=== PATIENT | male | born 1950 | race Caucasian/White ===

== ENCOUNTER 2016-10-27 07:55 | Inpatient (IN) | payer MEDICARE, OTHER ==
[~2016-10-27] VITALS: Ht 185.4 cm; Wt 106.8 kg
[2016-10-27] VITALS (8 sets, daily range): BP systolic 113; BP diastolic 59; PULSE 64–94; RESP 16; TEMP 100; O2SAT 96–100
[2016-10-27] MEDS ORDERED: MIDAZOLAM HCL 5 MG/ML VIAL (1 ML) ONE ×2 (08:00→08:23)
[2016-10-27] MEDS ORDERED: DIPHTH/TETANUS/ACEL PERTUSSIS (BOOSTER) 0.5 ML VIAL/PFS IM ONE (08:01)
[2016-10-27] MEDS ORDERED: ceFAZolin 2 GM PREMIX 50 ML ONE (08:01)
[2016-10-27 08:23] LABS: AUTOMATED NEUTROPHIL # 13.5 TH/MM3 (1.8-7.7); BASOPHIL % 0.3 % (0.0-2.0); EOSINOPHIL # 0.1 TH/MM3 (0-0.4); EOSINOPHIL % 0.4 % (0.0-4.0); HEMATOCRIT 29.6 % (39.0-51.0); HEMO FLAGS DIFF FINAL; LYMPH % 12.3 % (9.0-44.0); MEAN CELL VOLUME 95.5 FL (80.0-100.0); MEAN CORPUSCULAR HEMOGLOBIN 32.2 PG (27.0-34.0); MEAN CORPUSCULAR HGB CONC 33.7 % (32.0-36.0); MONO % 5.8 % (0.0-8.0); NEUT % 81.2 % (16.0-70.0); PLATELET COUNT 212 TH/MM3 (150-450); RED CELL DISTRIBUTION WIDTH 14.4 % (11.6-17.2); WHITE BLOOD COUNT 16.6 TH/MM3 (4.0-11.0)
[2016-10-27 08:33] LABS: APTT (PATIENT) 27.6 SEC (24.3-30.1); INTERNATIONAL NORMALIZED RATIO 1.2 RATIO
[2016-10-27] MEDS ORDERED: ceFAZolin 2 GM PREMIX 50 ML IV ONE (08:45)
[2016-10-27] MEDS ORDERED: IOHEXOL 350 MG/ML 10 ML VIAL (for RAD DIAG) IV ONE (08:50)
[2016-10-27] MEDS ORDERED: KETAMINE HCL 500 MG/5 ML VIAL ONE (08:55)
[2016-10-27] MEDS ORDERED: fentaNYL CITRATE 250 MCG/5 ML AMP ONE (08:56)
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
[2016-10-27] MEDS ORDERED: GENTAMICIN SULFATE 80 MG/2 ML VIAL IV ONE ×2 (09:19→12:16)
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
[2016-10-27] MEDS ORDERED: CIAL2.5T PO (09:26)
[2016-10-27] MEDS: SODIUM CHLOR 0.9% 1000 ML INJ 1,000 ML IV SCH ×2 (09:27→23:21)
[2016-10-27] MEDS ORDERED: CHLORHEXIDINE GLUCONATE 2 % 1 PACK (2 CLOTHS) TOP PRN (09:30)
[2016-10-27] MEDS ORDERED: ONDANSETRON HCL 4 MG/2 ML VIAL IV PRN (09:30)
[2016-10-27] MEDS ORDERED: SODIUM CHLORIDE 0.9% FLUSH 5 ML FLUSH IVF PRN (09:30)
[2016-10-27] MEDS ORDERED: MISCELLANEOUS NURSING INFORMATION XX SCH (09:30)
[2016-10-27] MEDS ORDERED: ACETAMINOPHEN 325 MG TAB PO PRN (09:30)
[2016-10-27] MEDS ORDERED: TRANEXAMIC ACID INJ 1,300 MG in SODIUM CHLORIDE 0.9% INJ 100 ML IV SCH (09:30)
[2016-10-27] MEDS: PANTOPRAZOLE SODIUM 40 MG VIAL IVP SCH (09:30)
[2016-10-27] MEDS ORDERED: ENALAPRILAT 1.25 MG/ML VIAL IV PRN (09:30)
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
[2016-10-27] MEDS ORDERED: GENTAMICIN SULFATE 80 MG/2 ML VIAL XX ONE (09:41)
[2016-10-27 09:51] LABS: BLOOD GAS BASE EXCESS -8.5 mmol/L (-2-2); BLOOD GAS CARBOXYHEMOGLOBIN 1.2 % (0-4); BLOOD GAS HCO3 18 mmol/L (22-26); BLOOD GAS METHEMOGLOBIN 1.2 % (0-2); BLOOD GAS O2 HGB SATURATION 98 % (90-100); BLOOD GAS OXYGEN CONTENT 12.5 Vol % (12.0-20.0); BLOOD GAS PCO2 43 mmHg (38-42); BLOOD GAS PO2 407 mmHg (61-120); BLOOD GAS TOTAL HGB 8.4 G/DL (12.0-16.0); CRITICAL VALUE YES; OXYGEN DEVICE VENTILATOR; TEMP CORR TO 98.6; VENT SETTINGS IN OR
[2016-10-27 09:52] LABS: DRAW SITE IN OR; STAT YES
[2016-10-27 10:00] LABS: AUTOMATED NEUTROPHIL # 8.8 TH/MM3 (1.8-7.7); BASOPHIL % 0.2 % (0.0-2.0); EOSINOPHIL % 0.4 % (0.0-4.0); HEMATOCRIT 22.6 % (39.0-51.0); HEMO FLAGS DIFF FINAL; LYMPH % 7.8 % (9.0-44.0); LYMPHOCYTE # 0.8 TH/MM3 (1.0-4.8); MEAN CELL VOLUME 92.3 FL (80.0-100.0); MEAN CORPUSCULAR HEMOGLOBIN 31.8 PG (27.0-34.0); MEAN CORPUSCULAR HGB CONC 34.4 % (32.0-36.0); MONO % 7.7 % (0.0-8.0); NEUT % 83.9 % (16.0-70.0); PLATELET COUNT 107 TH/MM3 (150-450); RED BLOOD COUNT 2.45 MIL/MM3 (4.50-5.90); RED CELL DISTRIBUTION WIDTH 14.7 % (11.6-17.2); WHITE BLOOD COUNT 10.5 TH/MM3 (4.0-11.0)
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
[2016-10-27 10:16] LABS: APTT (PATIENT) 42.7 SEC (24.3-30.1); INTERNATIONAL NORMALIZED RATIO 1.4 RATIO; PROTHROMBIN TIME - PATIENT 15.5 SEC (9.8-11.6)
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
[2016-10-27 10:24] LABS: POTASSIUM 4.1 MEQ/L (3.5-5.1)
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
[2016-10-27 10:33] LABS: BLOOD GAS BASE EXCESS -4.1 mmol/L (-2-2); BLOOD GAS CARBOXYHEMOGLOBIN 1.6 % (0-4); BLOOD GAS HCO3 21 mmol/L (22-26); BLOOD GAS METHEMOGLOBIN 1.3 % (0-2); BLOOD GAS O2 HGB SATURATION 97 % (90-100); BLOOD GAS OXYGEN CONTENT 11.8 Vol % (12.0-20.0); BLOOD GAS PCO2 38 mmHg (38-42); BLOOD GAS PO2 250 mmHg (61-120); BLOOD GAS TOTAL HGB 8.2 G/DL (12.0-16.0); CRITICAL VALUE NO; DRAW SITE ART LINE; OXYGEN DEVICE VENTILATOR; STAT YES; TEMP CORR TO 98.6
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
[2016-10-27 10:50] LABS: CALCIUM-PROTEIN CORRECTED 7.9 MG/DL (8.5-10.1)
[2016-10-27 11:28] LABS: BLOOD GAS BASE EXCESS -3.4 mmol/L (-2-2); BLOOD GAS CARBOXYHEMOGLOBIN 1.8 % (0-4); BLOOD GAS HCO3 21 mmol/L (22-26); BLOOD GAS METHEMOGLOBIN 1.4 % (0-2); BLOOD GAS O2 HGB SATURATION 97 % (90-100); BLOOD GAS OXYGEN CONTENT 11.1 Vol % (12.0-20.0); BLOOD GAS PCO2 37 mmHg (38-42); BLOOD GAS PO2 236 mmHg (61-120); BLOOD GAS TOTAL HGB 7.7 G/DL (12.0-16.0); TEMP CORR TO 98.6
[2016-10-27 11:29] LABS: CRITICAL VALUE NO; DRAW SITE IN OR; OXYGEN DEVICE VENTILATOR; STAT YES; VENT SETTINGS IN OR
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
[2016-10-27 11:35] LABS: AUTOMATED NEUTROPHIL # 6.9 TH/MM3 (1.8-7.7); BASOPHIL % 0.1 % (0.0-2.0); EOSINOPHIL % 0.1 % (0.0-4.0); HEMATOCRIT 21.2 % (39.0-51.0); LYMPH % 8.7 % (9.0-44.0); LYMPHOCYTE # 0.7 TH/MM3 (1.0-4.8); MEAN CELL VOLUME 87.3 FL (80.0-100.0); MEAN CORPUSCULAR HEMOGLOBIN 30.4 PG (27.0-34.0); MEAN CORPUSCULAR HGB CONC 34.8 % (32.0-36.0); MONO % 7.5 % (0.0-8.0); NEUT % 83.6 % (16.0-70.0); PLATELET COUNT 95 TH/MM3 (150-450); RED BLOOD COUNT 2.43 MIL/MM3 (4.50-5.90); RED CELL DISTRIBUTION WIDTH 15.2 % (11.6-17.2); WHITE BLOOD COUNT 8.3 TH/MM3 (4.0-11.0)
[2016-10-27 11:38] LABS: HEMO FLAGS AUTO DIFF
[2016-10-27 11:43] LABS: APTT (PATIENT) 41.1 SEC (24.3-30.1); INTERNATIONAL NORMALIZED RATIO 1.3 RATIO; PROTHROMBIN TIME - PATIENT 14.8 SEC (9.8-11.6)
[2016-10-27] MEDS ORDERED: MORPHINE SULFATE 4 MG/ML INJ IV PUSH PRN (11:45)
[2016-10-27] MEDS ORDERED: BACITRACIN TOP OINT 15 GM TUBE ONE (11:52)
--- NOTE | 2016-10-27 11:53 | HHI.PR ---
cc: Sedrick Dutton MD Immediate Post Op Note Procedure Date: Oct 27, 2016 Pre Op Diagnosis: Open left tibia-fibula fracture, open left calcaneus fracture, open right calcaneus fracture, right subtalar joint dislocation, right talonavicular joint dislocation Post Op Diagnosis: Surgeon: Sedrick Dutton Shook Splicer(s): Bereket Luciano PA-C The surgical procedure was assisted by my physician night assistant. My P.A. presence was necessary throughout this case for the manipulation and positioning of the surgical extremity. My P.A. was assisting me throughout the duration of this procedure. The skill set of a physician night assistant was medically necessary to complete this procedure. During the surgical case the hand frame surgical elastic knitter was working at the back table and the physician night assistant was directly assisting me. Procedure: Irrigation and debridement of open left tibia fracture, left fibula fracture, left calcaneus fracture, right calcaneus fracture. Closed reduction and excellent fixation of left distal tibia and fibula fractures Open reduction of right talonavicular joint Open reduction of right subtalar joint Pinning of right subtalar ankle joint Anesthesia: General Drains: None Patient Condition: Critical Sedrick Dutton MD Oct 27, 2016 11:53
[2016-10-27] MEDS ORDERED: TRANEXAMIC ACID INJ 1,000 MG/10 ML AMP ONE (11:56)
[2016-10-27] MEDS ORDERED: SODIUM CHLOR 0.9% 250 ML INJ 250 ML IV ONE ×2 (12:00→18:00)
[2016-10-27] MEDS ORDERED: PROPOFOL 200 MG/20 ML AMP IV ONE (12:00)
[2016-10-27] MEDS ORDERED: PHENYLEPHRINE HCL 10 MG/ML VIAL IV ONE (12:00)
[2016-10-27] MEDS ORDERED: CALCIUM CHLORIDE 10% SOLN 1 GRAM/10 ML SYR IV ONE (12:00)
[2016-10-27] MEDS ORDERED: LACTATED RINGER'S 1000 ML INJ 1,000 ML IV ONE (12:00)
[2016-10-27] MEDS ORDERED: NORMOSOL R IV ONE (12:00)
[2016-10-27] MEDS ORDERED: SODIUM BICARBONATE 8.4% SOLN 50 MEQ/50 ML VIAL IV ONE (12:00)
[2016-10-27] MEDS ORDERED: PHENYLEPH/NS 1000 MCG/10 ML SYR IV ONE (12:00)
[2016-10-27 12:10] LABS: BANDS 38 % (0-6); NEUTROPHIL # MANUAL DIFF 7.1 TH/MM3 (1.8-7.7); POLYS (SEG NEUTROPHILS) 48 % (16-70); WBC DIFF SAMPLE 100
[2016-10-27 12:11] LABS: ACANTHOCYTES OCC (NORMAL); PLATELET ESTIMATE SMEAR LOW (NORMAL)
[2016-10-27 12:12] LABS: PLATELET MORPHOLOGY NORMAL (NORMAL); SCAN/DIFF FINAL DIFF MANUAL
[2016-10-27 12:14] LABS: BICARBONATE 23.8 MEQ/L (21.0-32.0)
[2016-10-27 12:24] LABS: BLOOD GAS BASE EXCESS -2.7 mmol/L (-2-2); BLOOD GAS CARBOXYHEMOGLOBIN 1.8 % (0-4); BLOOD GAS HCO3 22 mmol/L (22-26); BLOOD GAS METHEMOGLOBIN 0.9 % (0-2); BLOOD GAS O2 HGB SATURATION 97 % (90-100); BLOOD GAS OXYGEN CONTENT 13.5 Vol % (12.0-20.0); BLOOD GAS PCO2 37 mmHg (38-42); BLOOD GAS PO2 271 mmHg (61-120); BLOOD GAS TOTAL HGB 9.4 G/DL (12.0-16.0); TEMP CORR TO 98.6
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
[2016-10-27 12:25] LABS: CRITICAL VALUE NO; DRAW SITE IN OR; FIO2 60 %; OXYGEN DEVICE VENTILATOR; STAT YES; VENT SETTINGS IN OR
--- NOTE | 2016-10-27 12:41 | RADRPT ---
EXAM DATE/TIME: 10/27/2016 11:38 [facility] COMPARISON: TIBIA/FIBULA LEFT (1 VW), October 27, 2016, 7:51. INDICATIONS: Instrument count. MEDICAL HISTORY: Unobtainable. SURGICAL HISTORY: Unobtainable. ENCOUNTER: Subsequent ACUITY: 1 day PAIN SCORE: Non-responsive. LOCATION: Left tibia. FINDINGS: There is a severely comminuted fracture of the distal tibia and fibula with involvement of the tibial plafond. Intramedullary pin is seen in the fibula. There is an external fixer in place. There is no unexpect ed foreign bodies. CONCLUSION: I see no unexpected radiopaque foreign bodies. Gennaro Mueller MD FACR on October 27, 2016 at 12:33 Board Certified Radiologist. This report was verified electronically.
[2016-10-27 12:48] LABS: APTT (PATIENT) 32.7 SEC (24.3-30.1); INTERNATIONAL NORMALIZED RATIO 1.1 RATIO; PROTHROMBIN TIME - PATIENT 12.6 SEC (9.8-11.6)
[2016-10-27 13:04] LABS: BICARBONATE 23.4 MEQ/L (21.0-32.0)
[2016-10-27] MEDS ORDERED: POTASSIUM CL 40 MEQ/30 ML LIQ UDC PO/TUBE PRN ×2 (13:30)
[2016-10-27] MEDS ORDERED: POTASSIUM PHOSPHATE MONOBASIC 500 MG TAB PO/TUBE PRN (13:30)
[2016-10-27] MEDS ORDERED: POTASSIUM PHOSPHATE MONOBASIC 500 MG TAB PO PRN (13:30)
[2016-10-27] MEDS ORDERED: MAGNESIUM OXIDE 400 MG TAB PO PRN (13:30)
[2016-10-27] MEDS ORDERED: POTASSIUM CHLOR 40 MEQ PREMIX 100 ML IV PRN ×2 (13:30)
[2016-10-27] MEDS ORDERED: MAGNESIUM SULFATE INJ 4 GM in SODIUM CHLORIDE 0.9% INJ 92 ML IV PRN (13:30)
[2016-10-27] MEDS ORDERED: RESP: ALBUTEROL 2.5 MG/IPRATROPIUM 0.5 MG NEB (PRN) INH (13:30)
[2016-10-27] MEDS ORDERED: MAGNESIUM SULFATE INJ 2 GM in SODIUM CHLORIDE 0.9% INJ 96 ML IV PRN (13:30)
[2016-10-27] MEDS ORDERED: SODIUM PHOSPHATE INJ 30 MMOL in SODIUM CHLOR 0.9% 250 ML INJ 240 ML IV PRN (13:30)
[2016-10-27] MEDS ORDERED: POTASSIUM PHOSPHATE INJ 30 MMOL in SODIUM CHLOR 0.9% 250 ML INJ 250 ML IV PRN (13:30)
[2016-10-27] MEDS ORDERED: POTASSIUM CHLOR 20 MEQ PREMIX 100 ML IV PRN ×2 (13:30)
[2016-10-27] MEDS ORDERED: DEXTROSE 50% IN WATER 50 ML VIAL(D50) IV PUSH PRN (13:30)
[2016-10-27 13:33] LABS: HEMATOCRIT 21.7 % (39.0-51.0); MEAN CELL VOLUME 86.8 FL (80.0-100.0); MEAN CORPUSCULAR HEMOGLOBIN 30.2 PG (27.0-34.0); MEAN CORPUSCULAR HGB CONC 34.7 % (32.0-36.0); PLATELET COUNT 94 TH/MM3 (150-450); REVIEW FLAG FINAL; WHITE BLOOD COUNT 6.2 TH/MM3 (4.0-11.0)
--- NOTE | 2016-10-27 13:47 | RADRPT ---
EXAM DATE/TIME: 10/27/2016 11:38 [facility] COMPARISON: No previous studies available for comparison. INDICATIONS: Instrument count. MEDICAL HISTORY: Unobtainable. SURGICAL HISTORY: Unobtainable. ENCOUNTER: Subsequent ACUITY: 1 day PAIN SCORE: Non-responsive. LOCATION: Left forearm, humerus. FINDINGS: No radiopaque foreign bodies are evident. There is no radiopaque retained surgical instruments. CONCLUSION: There is no radiopaque retained surgical instruments. Gennaro Mueller MD FACR on October 27, 2016 at 13:38 Board Certified Radiologist. This report was verified electronically.
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
--- NOTE | 2016-10-27 14:25 | RADRPT ---
EXAM DATE/TIME: 10/27/2016 11:13 [facility] COMPARISON: No previous studies available for comparison. INDICATIONS : External fixator left ankle. MEDICAL HISTORY : None. SURGICAL HISTORY : None. ENCOUNTER: Subsequent ACUITY: 1 day PAIN SCORE: Non-responsive. LOCATION: Left ankle. FINDINGS: Two view exam was performed of the left ankle. There is severely comminuted fractures involving the d istal tibia. There is a comminuted fracture involving the distal fibula. There is good alignment at t he mortise joint. CONCLUSION: Severely comminuted fractures predominantly involving the distal tibia Austin Candelario MD on October 27, 2016 at 14:23 Board Certified Radiologist. This report was verified electronically.
--- NOTE | 2016-10-27 14:26 | RADRPT ---
EXAM DATE/TIME: 10/27/2016 11:13 [facility] COMPARISON: No previous studies available for comparison. INDICATIONS : Right heel/talus reduction, fixation. MEDICAL HISTORY : None. SURGICAL HISTORY : None. ENCOUNTER: Subsequent ACUITY: 1 day PAIN SCORE: Non-responsive. LOCATION: Right foot. FINDINGS: Two view examination of the right heel demonstrates an internal fixation pin that crossing the calcan eus, talus and distal tibia.. The bony structures appear to be in good alignment. CONCLUSION: Status post pinning as above. Austin Candelario MD on October 27, 2016 at 14:24 Board Certified Radiologist. This report was verified electronically.
[2016-10-27 15:01] LABS: BLOOD GAS BASE EXCESS -0.1 mmol/L (-2-2); BLOOD GAS CARBOXYHEMOGLOBIN 1.8 % (0-4); BLOOD GAS HCO3 24 mmol/L (22-26); BLOOD GAS METHEMOGLOBIN 0.9 % (0-2); BLOOD GAS O2 HGB SATURATION 97 % (90-100); BLOOD GAS OXYGEN CONTENT 12.1 Vol % (12.0-20.0); BLOOD GAS PCO2 42 mmHg (38-42); BLOOD GAS PO2 178 mmHg (61-120); BLOOD GAS TOTAL HGB 8.6 G/DL (12.0-16.0); CRITICAL VALUE NO; OXYGEN DEVICE VENTILATOR; TEMP CORR TO 98.6
[2016-10-27 15:02] LABS: DRAW SITE ART LINE; FIO2 40 %; STAT NO; VENT SETTINGS AC/16/550/PEEP5
[2016-10-27 16:11] LABS: HEMATOCRIT 23.5 % (39.0-51.0); MEAN CORPUSCULAR HEMOGLOBIN 30.7 PG (27.0-34.0); MEAN CORPUSCULAR HGB CONC 35.7 % (32.0-36.0); PLATELET COUNT 105 TH/MM3 (150-450); RED BLOOD COUNT 2.73 MIL/MM3 (4.50-5.90); RED CELL DISTRIBUTION WIDTH 14.7 % (11.6-17.2); REVIEW FLAG FINAL; WHITE BLOOD COUNT 6.8 TH/MM3 (4.0-11.0)
[2016-10-27] MEDS: PROPOFOL 1000 MG/100 ML INJ 100 ML IV SCH ×2 (16:53→23:20)
[2016-10-27] MEDS: fentaNYL DRIP 250 ML IV SCH (16:53)
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
--- NOTE | 2016-10-27 17:24 | OTSOAPIP ---
TIME SESSION COMPLETED: PM TREATMENT TIME: 0 MINS. CHART REVIEWED. RECEIVED ORDERS FOR OT CONSULT. PT HAVING SURGERY ON BILATERAL LOWER EXTREMITIES. WILL FOLLOW NEXT DAY. Therapist: HUBERT SMITH OT/L Signature on file
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
[2016-10-27] MEDS: RESP: ALBUTEROL 2.5 MG/IPRATROPIUM 0.5 MG NEB (SCH) INH ×2 (17:53→21:31)
[2016-10-27] MEDS: ceFAZolin 2 GM PREMIX 50 ML IV SCH (18:34)
[2016-10-27] MEDS: INSULIN NovoLIN REGULAR SUPPLEMENTAL SCALE SQ SCH (18:34)
[2016-10-27] MEDS: MAGNESIUM HYDROXIDE SUSP 30 ML CUP PO SCH (21:00)
[2016-10-27] MEDS: DOCUSATE SODIUM 100 MG CAP PO SCH (21:00)
[2016-10-27] MEDS: GENTAMICIN 80 MG PREMIX 100 ML IV SCH (23:01)
[2016-10-27 23:11] LABS: REVIEW FLAG FINAL
[2016-10-28] VITALS (14 sets, daily range): BP systolic 107–132; BP diastolic 51–56; PULSE 92–115; RESP 8–17; TEMP 99.3–101.5; O2SAT 97–100
[2016-10-28 00:10] LABS: BICARBONATE 27.2 MEQ/L (21.0-32.0); POTASSIUM 4.1 MEQ/L (3.5-5.1)
[2016-10-28] MEDS: ceFAZolin 2 GM PREMIX 50 ML IV SCH ×3 (03:24→17:47)
[2016-10-28] MEDS: fentaNYL DRIP 250 ML IV SCH (03:30)
[2016-10-28] MEDS: PROPOFOL 1000 MG/100 ML INJ 100 ML IV SCH (03:30)
[2016-10-28] MEDS: GENTAMICIN 80 MG PREMIX 100 ML IV SCH ×3 (03:37→20:43)
[2016-10-28] MEDS: RESP: ALBUTEROL 2.5 MG/IPRATROPIUM 0.5 MG NEB (SCH) INH ×4 (03:54→20:28)
[2016-10-28] MEDS: CHLORHEXIDINE GLUCONATE 2 % 1 PACK (2 CLOTHS) TOP SCH (05:04)
[2016-10-28 05:50] LABS: HEMATOCRIT 24.4 % (39.0-51.0); MEAN CELL VOLUME 85.2 FL (80.0-100.0); MEAN CORPUSCULAR HEMOGLOBIN 30.2 PG (27.0-34.0); MEAN CORPUSCULAR HGB CONC 35.5 % (32.0-36.0); PLATELET COUNT 89 TH/MM3 (150-450); RED BLOOD COUNT 2.87 MIL/MM3 (4.50-5.90); RED CELL DISTRIBUTION WIDTH 15.6 % (11.6-17.2); WHITE BLOOD COUNT 6.5 TH/MM3 (4.0-11.0)
[2016-10-28] MEDS: INSULIN NovoLIN REGULAR SUPPLEMENTAL SCALE SQ SCH ×4 (06:00→17:47)
[2016-10-28 06:01] LABS: REVIEW FLAG FINAL
[2016-10-28 06:07] LABS: BICARBONATE 27.3 MEQ/L (21.0-32.0); POTASSIUM 4.2 MEQ/L (3.5-5.1)
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
[2016-10-28] MEDS: oxyCODONE HCL ORAL CONC 20 MG/ML SYRINGE PO PRN ×4 (08:25→23:50)
[2016-10-28] MEDS: PANTOPRAZOLE SODIUM 40 MG VIAL IVP SCH (08:40)
[2016-10-28] MEDS: DOCUSATE SODIUM 100 MG CAP PO SCH ×2 (08:40→20:44)
[2016-10-28] MEDS ORDERED: BUMETANIDE INJ 1 MG/4 ML VIAL IV PUSH ONE ×2 (10:30→12:00)
[2016-10-28 10:39] LABS: HEMATOCRIT 24.8 % (39.0-51.0)
[2016-10-28 10:46] LABS: REVIEW FLAG FINAL
--- NOTE | 2016-10-28 11:19 | PD.ORT.PN ---
Subjective Subjective Remarks Intubated and following basic commands Objective Vitals Vital Signs Date Time Temp Pulse Resp B/P Pulse Ox O2 Delivery O2 Flow Rate FiO2 10/28/16 10:17 40 10/28/16 10:15 40 10/28/16 09:27 100 40 10/28/16 09:25 16 10/28/16 08:00 100.0 102 17 119/53 100 10/28/16 08:00 102 10/28/16 06:00 96 10/28/16 04:00 95 10/28/16 04:00 99.3 95 16 107/51 100 10/28/16 04:00 40 10/28/16 03:55 99 40 10/28/16 02:00 92 10/28/16 00:15 100 40 10/28/16 00:00 99.7 96 16 108/56 100 10/28/16 00:00 96 10/27/16 22:00 92 10/27/16 20:12 100 40 10/27/16 20:00 93 10/27/16 20:00 40 10/27/16 20:00 100.0 94 16 113/59 100 10/27/16 19:00 93 10/27/16 19:00 100 Mechanical Ventilator 40 10/27/16 17:48 100 40 10/27/16 13:00 64 10/27/16 12:45 100 40 10/27/16 12:45 100 Ventilator 40 I/O 10/27/16 10/27/16 10/27/16 10/28/16 10/28/16 10/28/16 07:00 15:00 23:00 07:00 15:00 23:00 Intake Total 938 ml 1124 ml Output Total 1000 ml 400 ml 625 ml Balance -1000 ml 538 ml 499 ml Intake IV Total 938 ml 1124 ml Output Urine Total 1000 ml 400 ml 375 ml Gastric Drainage Total 250 ml Result Diagram: 10/28/16 1020 10/28/16 0515 Other Results Laboratory Tests Test 10/27/16 12:02 Prothrombin Time 12.6 SEC (9.8-11.6) Prothromb Time International 1.1 RATIO Ratio Imaging Last 24 hours Impressions Thoracic Spine CT 10/27/16 0813 Signed Impressions: Service Date/Time: Thursday, October 27, 2016 08:22 - CONCLUSION: Negative CT scan of the thoracic spine for acute traumatic injury. Gennaro Mueller MD FACR Pelvis X-Ray 10/27/16812 Signed Impressions: Service Date/Time: Thursday, October 27, 2016 07:51 - CONCLUSION: No definite bony fracture or joint dislocation. Austin Candelario MD Lumbar Spine CT 10/27/16812 Signed Impressions: Service Date/Time: Thursday, October 27, 2016 08:21 - CONCLUSION: 1. Mild nondisplaced facture involving the anterior superior endplate of L3. 2. Primary bony degenerative changes of the lumbar spine. 3. Mild diffuse broad-based bulging L4-5 4. Bilateral facet arthritis. Austin Candelario MD Head CT 10/27/16812 Signed Impressions: Service Date/Time: Thursday, October 27, 2016 08:16 - CONCLUSION: No acute intracranial hemorrhage. Austin Candelario MD Chest X-Ray 10/27/16812 Signed Impressions: Service Date/Time: Thursday, October 27, 2016 07:51 - CONCLUSION: No definite acute pulmonary infiltrates. CT thorax to follow. Austin Candelario MD Chest CT 10/27/16812 Signed Impressions: Service Date/Time: Thursday, October 27, 2016 08:21 - CONCLUSION: 1. Acute left proximal humeral fracture. 2. No acute intrathoracic abnormality. 3. 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 Carlo Bal Jr., MD Cervical Spine CT 10/27/16812 Signed Impressions: Service Date/Time: Thursday, October 27, 2016 08:18 - CONCLUSION: 1. No fracture or dislocation. 2. Degenerative changes at C6-C7. Carlo Bal Jr., MD Abdomen/Pelvis CT 10/27/16812 Signed Impressions: Service Date/Time: Thursday, October 27, 2016 08:21 - CONCLUSION: 1. No acute abnormality. 2. Small peripelvic cysts involving the left kidney. Carlo Bal Jr., MD Tibia/Fibula X-Ray 10/27/16 Signed Impressions: Service Date/Time: Thursday, October 27, 2016 11:38 - CONCLUSION: I see no unexpected radiopaque foreign bodies. Gennaro Mueller MD FACR Tibia/Fibula X-Ray 10/27/16 Signed Impressions: Service Date/Time: Thursday, October 27, 2016 07:51 - CONCLUSION: 1. Severely comminuted fractures involving the distal tibia 2. Fractures involving the proximal and distal fibula Austin Candelario MD Radius/Ulna X-Ray 10/27/16 Signed Impressions: Service Date/Time: Thursday, October 27, 2016 11:38 - CONCLUSION: There is no radiopaque retained surgical instruments. Gennaro Mueller MD FACR Maxillofacial CT 10/27/16 Signed Impressions: Service Date/Time: Thursday, October 27, 2016 08:16 - CONCLUSION: 1. Acute fractures involving the nasion and nasal septum. 2. Periorbital soft tissue hematoma on the left. 3. Chronic maxillary sinus disease on the right. Carlo Bal Jr., MD Lower Extremity CT 10/27/16 Signed Impressions: Service Date/Time: Thursday, October 27, 2016 08:30 - CONCLUSION: 1. Multiple fractures involving the right foot. 2. Joint dislocation between the tarsal navicular bone and the talus. The tarsonavicular bone is dislocated anteriorly. Austin Candelario MD Lower Extremity CT 10/27/16 Signed Impressions: Service Date/Time: Thursday, October 27, 2016 08:30 - CONCLUSION: 1. Distal tibia and fibula are grossly intact. Good alignment at the mortise joint. 2. Multiple severe fractures of the right foot which are described on the CT scan of the foot. Austin Candelario MD Lower Extremity CT 10/27/16 Signed Impressions: Service Date/Time: Thursday, October 27, 2016 08:30 - CONCLUSION: Severely comminuted fracture the distal tibia. Multiple fractures involving the left foot as above Austin Candelario MD Lower Extremity CT 10/27/16 Signed Impressions: Service Date/Time: Thursday, October 27, 2016 08:35 - CONCLUSION: Complex severely comminuted open fracture injuries of the left ankle and hindfoot as described. Jacobo Bragg MD Foot X-Ray 10/27/16 Signed Impressions: Service Date/Time: Thursday, October 27, 2016 11:13 - CONCLUSION: Status post pinning as above. Austin Candelario MD Foot X-Ray 2/24/17 0000 Signed Impressions: Service Date/Time: Thursday, October 27, 2016 07:51 - CONCLUSION: Limited study with no definite bony fractures on this single view. Recommend complete study when patient is stable. Austin Candelario MD Aorta w/Runoff CTA 10/27/16 0000 Signed Impressions: Service Date/Time: Thursday, October 27, 2016 08:30 - CONCLUSION: 1. Patent inflow and outflow bilaterally. 2. Right lower extremity has patency of the trifurcation vessels to the level of the ankle joint. I am able to see the dorsalis pedis artery within its most inferior extent. The posterior tibial artery seen patent to the level just below the medial malleolus. No extravasation to suggest hemorrhage. 3. Left lower extremity shows lack of visualization of the anterior tibial artery beginning just above the ankle joint. This may relate to spasm. I see no extravasation. The posterior tibial artery is patent to level just below the medial malleolus. Carlo Bal Jr., MD Ankle X-Ray 10/27/16 0000 Signed Impressions: Service Date/Time: Thursday, October 27, 2016 11:13 - CONCLUSION: Severely comminuted fractures predominantly involving the distal tibia Austin Candelario MD Ankle X-Ray 10/27/16 0000 Signed Impressions: Service Date/Time: Thursday, October 27, 2016 07:51 - CONCLUSION: Limited examination. Soft tissue swelling with subcutaneous emphysema along the lateral malleolus area. Distal tibia and fibula are grossly intact. Austin Candelario MD Objective Remarks LLE: dressings clean and dry. +exfix. RLE: +short leg splint. able to flex/extrend toes Assessment & Plan Assessment and Plan 1) Left Tibial pilon fx with fibula fxs and degloving s/p exfix - POD 1 2) Right calcaneus fx/dislocation s/p I&D and splinting - POD 1 -will eval for OR next week -pin care of exfix -maintain splint Calixto Chacko MD Oct 28, 2016 11:19
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
[2016-10-28 16:31] LABS: HEMATOCRIT 23.7 % (39.0-51.0)
[2016-10-28 16:35] LABS: REVIEW FLAG FINAL
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
[2016-10-28] MEDS ORDERED: CHLORHEXIDINE 0.12% (ORAL KIT) 15 ML CUP MT SCH (20:00)
[2016-10-29] VITALS (14 sets, daily range): BP systolic 107–128; BP diastolic 51–62; PULSE 20–114; RESP 10–21; TEMP 96.9–100.4; O2SAT 92–99
[2016-10-29] MEDS: MAGNESIUM HYDROXIDE SUSP 30 ML CUP PO SCH ×2 (00:12→21:30)
[2016-10-29 00:42] LABS: REVIEW FLAG FINAL
[2016-10-29 00:45] LABS: HEMATOCRIT 20.7 % (39.0-51.0)
[2016-10-29] MEDS: ceFAZolin 2 GM PREMIX 50 ML IV SCH ×3 (01:38→17:41)
[2016-10-29] MEDS: RESP: ALBUTEROL 2.5 MG/IPRATROPIUM 0.5 MG NEB (SCH) INH ×3 (03:32→20:58)
[2016-10-29] MEDS: GENTAMICIN 80 MG PREMIX 100 ML IV SCH ×3 (04:41→21:28)
--- NOTE | 2016-10-29 05:07 | RADRPT ---
EXAM DATE/TIME: 10/29/2016 04:15 [facility] COMPARISON: CHEST SINGLE AP, October 28, 2016, 5:33. INDICATIONS : Shortness of breath, possible pulmonary disease. MEDICAL HISTORY : None. SURGICAL HISTORY : None. ENCOUNTER: Subsequent ACUITY: 3 days PAIN SCORE: Non-responsive. LOCATION: Bilateral chest FINDINGS: NG tube and endotracheal tube have been removed. Patchy left basilar airspace disease. Right lung is clear. Cardiomegaly. CONCLUSION: Stable appearance of the lungs. Cory Franklin MD on October 29, 2016 at 5:04 Board Certified Radiologist. This report was verified electronically.
[2016-10-29] MEDS: CHLORHEXIDINE GLUCONATE 2 % 1 PACK (2 CLOTHS) TOP SCH (05:35)
[2016-10-29] MEDS: INSULIN NovoLIN REGULAR SUPPLEMENTAL SCALE SQ SCH ×4 (07:00→17:41)
[2016-10-29 07:07] LABS: MEAN CELL VOLUME 88.1 FL (80.0-100.0); PLATELET COUNT 79 TH/MM3 (150-450); RED BLOOD COUNT 2.14 MIL/MM3 (4.50-5.90); RED CELL DISTRIBUTION WIDTH 15.6 % (11.6-17.2); WHITE BLOOD COUNT 7.3 TH/MM3 (4.0-11.0)
[2016-10-29 07:21] LABS: BICARBONATE 28.2 MEQ/L (21.0-32.0); POTASSIUM 3.8 MEQ/L (3.5-5.1)
[2016-10-29 07:37] LABS: CALCIUM-PROTEIN CORRECTED 8.3 MG/DL (8.5-10.1)
[2016-10-29 07:53] LABS: HEMATOCRIT 18.8 % (39.0-51.0); REVIEW FLAG FINAL
[2016-10-29] MEDS ORDERED: SODIUM CHLOR 0.9% 250 ML INJ 250 ML IV ONE ×2 (08:00→11:00)
[2016-10-29] MEDS: ACETAMINOPHEN 325 MG TAB PO SCH ×3 (08:31→21:30)
[2016-10-29] MEDS: GABAPENTIN 100 MG CAP PO SCH ×3 (08:31→17:40)
[2016-10-29] MEDS: DOCUSATE SODIUM 50 MG/SENNA 8.6 MG TAB PO SCH ×2 (08:31→21:30)
[2016-10-29] MEDS: FAMOTIDINE 20 MG TAB PO SCH ×2 (08:31→21:30)
[2016-10-29] MEDS: BACITRACIN TOP OINT 15 GM TUBE TOP SCH (08:31)
[2016-10-29] MEDS: HYDROmorphone HCL PF 1 MG/ML VIAL IV PUSH PRN ×2 (12:03→18:29)
[2016-10-29] MEDS: oxyCODONE HCL ORAL CONC 20 MG/ML SYRINGE PO PRN ×2 (13:33→20:18)
[2016-10-29 14:04] LABS: HEMATOCRIT 21.2 % (39.0-51.0)
[2016-10-29 14:12] LABS: REVIEW FLAG FINAL
--- NOTE | 2016-10-29 15:48 | HHI.PR ---
Subjective Subjective Notes Hgb 6.4 today, 2 PRBCs received Complains of left shoulder pain Fevers overnight Objective Vitals/I&O Vital Signs Date Time Temp Pulse Resp B/P Pulse Ox O2 Delivery O2 Flow Rate FiO2 10/29/16 14:22 97 10/29/16 14:19 97.9 109 16 111/54 10/29/16 14:07 Nasal Cannula 2.00 10/28/16 10:17 40 Labs Laboratory Tests Test 10/28/16 10/28/16 10/29/16 10/29/16 16:11 23:44 06:40 13:49 Hemoglobin 8.2 7.3 6.4 7.6 Hematocrit 23.7 20.7 18.8 21.2 White Blood Count 7.3 Red Blood Count 2.14 Mean Corpuscular Volume 88.1 Mean Corpuscular Hemoglobin 30.0 Mean Corpuscular Hemoglobin 34.0 Concent Red Cell Distribution Width 15.6 Platelet Count 79 Mean Platelet Volume 8.9 Sodium Level 141 Potassium Level 3.8 Chloride Level 105 Carbon Dioxide Level 28.2 Anion Gap 8 Blood Urea Nitrogen 20 Creatinine 1.36 Estimat Glomerular Filtration 53 Rate Random Glucose 106 Calcium Level 6.9 Protein Corrected Calcium 8.3 Total Protein 4.5 Date/Time Procedure Status Source Growth 10/29/16 13:49 Aerobic Blood Culture Received Blood Peripheral Pending 10/29/16 13:49 Anaerobic Blood Culture Received Blood Peripheral Pending Radiology Last Impressions Chest X-Ray 10/29/16 0600 Signed Impressions: Service Date/Time: Saturday, October 29, 2016 04:15 - CONCLUSION: Stable appearance of the lungs. Cory Franklin MD Thoracic Spine CT 10/27/16812 Signed Impressions: Service Date/Time: Thursday, October 27, 2016 08:22 - CONCLUSION: Negative CT scan of the thoracic spine for acute traumatic injury. Gennaro Mueller MD FACR Pelvis X-Ray 10/27/16812 Signed Impressions: Service Date/Time: Thursday, October 27, 2016 07:51 - CONCLUSION: No definite bony fracture or joint dislocation. Austin Candelario MD Lumbar Spine CT 10/27/16812 Signed Impressions: Service Date/Time: Thursday, October 27, 2016 08:21 - CONCLUSION: 1. Mild nondisplaced facture involving the anterior superior endplate of L3. 2. Primary bony degenerative changes of the lumbar spine. 3. Mild diffuse broad-based bulging L4-5 4. Bilateral facet arthritis. Austin Candelario MD Head CT 10/27/16812 Signed Impressions: Service Date/Time: Thursday, October 27, 2016 08:16 - CONCLUSION: No acute intracranial hemorrhage. Austin Candelario MD Chest CT 10/27/16812 Signed Impressions: Service Date/Time: Thursday, October 27, 2016 08:21 - CONCLUSION: 1. Acute left proximal humeral fracture. 2. No acute intrathoracic abnormality. 3. 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 Carlo Bal Jr., MD Cervical Spine CT 10/27/16812 Signed Impressions: Service Date/Time: Thursday, October 27, 2016 08:18 - CONCLUSION: 1. No fracture or dislocation. 2. Degenerative changes at C6-C7. Carlo Bal Jr., MD Abdomen/Pelvis CT 10/27/16812 Signed Impressions: Service Date/Time: Thursday, October 27, 2016 08:21 - CONCLUSION: 1. No acute abnormality. 2. Small peripelvic cysts involving the left kidney. Carlo Bal Jr., MD Tibia/Fibula X-Ray 10/27/16 0000 Signed Impressions: Service Date/Time: Thursday, October 27, 2016 11:38 - CONCLUSION: I see no unexpected radiopaque foreign bodies. Gennaro Mueller MD FACR Radius/Ulna X-Ray 10/27/16 0000 Signed Impressions: Service Date/Time: Thursday, October 27, 2016 11:38 - CONCLUSION: There is no radiopaque retained surgical instruments. Gennaro Mueller MD FACR Maxillofacial CT 10/27/16 0000 Signed Impressions: Service Date/Time: Thursday, October 27, 2016 08:16 - CONCLUSION: 1. Acute fractures involving the nasion and nasal septum. 2. Periorbital soft tissue hematoma on the left. 3. Chronic maxillary sinus disease on the right. Carlo Bal Jr., MD Lower Extremity CT 10/27/16 0000 Signed Impressions: Service Date/Time: Thursday, October 27, 2016 08:30 - CONCLUSION: 1. Multiple fractures involving the right foot. 2. Joint dislocation between the tarsal navicular bone and the talus. The tarsonavicular bone is dislocated anteriorly. Austin Candelario MD Foot X-Ray 10/27/16 0000 Signed Impressions: Service Date/Time: Thursday, October 27, 2016 11:13 - CONCLUSION: Status post pinning as above. Austin Candelario MD Aorta w/Runoff CTA 10/27/16 0000 Signed Impressions: Service Date/Time: Thursday, October 27, 2016 08:30 - CONCLUSION: 1. Patent inflow and outflow bilaterally. 2. Right lower extremity has patency of the trifurcation vessels to the level of the ankle joint. I am able to see the dorsalis pedis artery within its most inferior extent. The posterior tibial artery seen patent to the level just below the medial malleolus. No extravasation to suggest hemorrhage. 3. Left lower extremity shows lack of visualization of the anterior tibial artery beginning just above the ankle joint. This may relate to spasm. I see no extravasation. The posterior tibial artery is patent to level just below the medial malleolus. Carlo Bal Jr., MD Ankle X-Ray 10/27/16 0000 Signed Impressions: Service Date/Time: Thursday, October 27, 2016 11:13 - CONCLUSION: Severely comminuted fractures predominantly involving the distal tibia Austin Candelario MD Narrative Exam GENERAL: 66 year old well-nourished, well developed male lying in bed. SKIN: Warm and dry. Abrasions noted to face. LEFT eye ecchymosis. ENT: No nasal bleeding or discharge. Mucous membranes pink and moist. NECK: Trachea midline. No JVD. CARDIOVASCULAR: Regular rate and rhythm. RESPIRATORY: No accessory muscle use. Lungs clear to auscultation. Breath sounds equal bilaterally. GASTROINTESTINAL: Abdomen soft, non-tender, nondistended. + BS. MUSCULOSKELETAL: Extremities without cyanosis, +1 generalized edema. LEFT forearm dressing removed, sutures and tasha intact, no erythema. LEFT posterior shoulder with sutures intact, well approximated, no erythema. LLE with RUBIA wrap and ex-fix in place. RLE with soft splint in place. + sensation, STEVENS x4. LEFT shoulder crepitus noted with movement. NEUROLOGICAL: Awake and alert. Normal speech. A/P Assessment and Plan INJURIES: LEFT humeral neck fracture LEFT OPEN tib/fib fracture with degloving LEFT LEFT calcaneus fracture RIGHT open calcaneus fracture Talonavicular dislocation Procedures: 10/27: Reduction with ex-fix left tibia/fibular in pinning of right calcaneus fracture. 10/27: LEFT leg fasciotomy, control of bleeding left leg and left arm, I&D left leg, wound closure left arm and left forehead. Diet: Regular Pulmonary: nebs. 2L NC Pain: Dilaudid, Neurontin, Roxicodone Activity: BR. PT and OT evaluating. GI: Pepcid Bowel: Bessy-colace. MOM. No BM yet. DVT: SCDs. Hgb 6.4 today, received 2PRBCs. Recheck Hgb 7.6. Recheck at 2200 an in AM. Fevers overnight. WBC count normal. Lopez cultured. IV antibiotics: Ancef, Gentamicin. Labs in AM Wound care: Cleanse with soap and water, leave open to air. Plan of care discussed with patient and family at bedside. OR tomorrow for washout of left leg with Dr Cornell. NPO after midnight. We' ll try to coordinate with Ortho. Louis Lewis Oct 29, 2016 15:48
[2016-10-29 16:40] LABS: BACTERIA, URINE RARE /hpf; BLOOD, URINE MOD (NEG); COMMENT (UR) CULTURE INDICATED; CULTURE IF INDICATED CULTURE INDICATED; GLUCOSE,URINE NEG (NEG); KETONE, URINE TRACE mg/dL (NEG); MUCUS URINE FEW /lpf (OCC); NITRITE,URINE NEG (NEG); PH, URINE 5.5 (5.0-8.5); SQUAMOUS EPITHELIAL CELL URINE 1 /hpf (0-5); URINE COLOR YELLOW (YELLW/STRAW)
--- NOTE | 2016-10-29 18:47 | PD.ORT.PN ---
Subjective Subjective Remarks Patient comfortable. Pain controlled. NAD. Daughter at bedside. Objective Vitals Vital Signs Date Time Temp Pulse Resp B/P Pulse Ox O2 Delivery O2 Flow Rate FiO2 10/29/16 17:04 99.0 108 16 128/62 97 10/29/16 14:22 97 10/29/16 14:19 97.9 109 16 111/54 10/29/16 14:07 97 Nasal Cannula 2.00 10/29/16 14:04 99.8 110 16 110/51 97 10/29/16 12:00 96.9 104 18 115/57 92 10/29/16 10:00 107 10/29/16 09:09 97 Nasal Cannula 2.00 10/29/16 08:00 100.2 20 19 113/56 98 10/29/16 08:00 105 10/29/16 07:00 97 Nasal Cannula 2.00 10/29/16 06:00 112 10/29/16 04:00 100 10/29/16 04:00 100.4 100 10 107/53 97 10/29/16 02:00 102 10/29/16 00:00 103 10/29/16 00:00 100.4 103 20 107/53 99 10/28/16 22:00 108 10/28/16 20:26 100 Nasal Cannula 2.00 10/28/16 20:00 110 10/28/16 20:00 101.5 109 8 115/55 97 10/28/16 19:00 97 Nasal Cannula 2.00 I/O 10/28/16 10/28/16 10/28/16 10/29/16 10/29/16 10/29/16 07:00 15:00 23:00 07:00 15:00 23:00 Intake Total 5996 ml 1140 ml 1025 ml 1023 ml 720 ml 782 ml Output Total 625 ml 1150 ml 700 ml 325 ml Balance 5371 ml -10 ml 325 ml 698 ml 720 ml 782 ml Intake Oral 240 ml 720 ml 720 ml 720 ml IV Total 1124 ml 900 ml 305 ml 303 ml 482 ml Packed Cells 2750 ml 300 ml FFP 1232 ml Platelets 439 ml Cryoprecipitate 451 ml Output Urine Total 375 ml 1150 ml 700 ml 325 ml Gastric Drainage Total 250 ml # Voids 1 # Bowel Movements 0 0 Result Diagram: 10/29/16 1349 10/29/16 0640 Imaging Last 24 hours Impressions Thoracic Spine CT 10/27/16812 Signed Impressions: Service Date/Time: Thursday, October 27, 2016 08:22 - CONCLUSION: Negative CT scan of the thoracic spine for acute traumatic injury. Gennaro Mueller MD FACR Pelvis X-Ray 10/27/16812 Signed Impressions: Service Date/Time: Thursday, October 27, 2016 07:51 - CONCLUSION: No definite bony fracture or joint dislocation. Austin Candelario MD Lumbar Spine CT 10/27/16812 Signed Impressions: Service Date/Time: Thursday, October 27, 2016 08:21 - CONCLUSION: 1. Mild nondisplaced facture involving the anterior superior endplate of L3. 2. Primary bony degenerative changes of the lumbar spine. 3. Mild diffuse broad-based bulging L4-5 4. Bilateral facet arthritis. Austin Candelario MD Head CT 10/27/16812 Signed Impressions: Service Date/Time: Thursday, October 27, 2016 08:16 - CONCLUSION: No acute intracranial hemorrhage. Austin Candelario MD Chest X-Ray 10/27/16812 Signed Impressions: Service Date/Time: Thursday, October 27, 2016 07:51 - CONCLUSION: No definite acute pulmonary infiltrates. CT thorax to follow. Austin Candelario MD Chest CT 10/27/16812 Signed Impressions: Service Date/Time: Thursday, October 27, 2016 08:21 - CONCLUSION: 1. Acute left proximal humeral fracture. 2. No acute intrathoracic abnormality. 3. 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 Carlo Bal Jr., MD Cervical Spine CT 10/27/16812 Signed Impressions: Service Date/Time: Thursday, October 27, 2016 08:18 - CONCLUSION: 1. No fracture or dislocation. 2. Degenerative changes at C6-C7. Carlo Bla Jr., MD Abdomen/Pelvis CT 10/27/16812 Signed Impressions: Service Date/Time: Thursday, October 27, 2016 08:21 - CONCLUSION: 1. No acute abnormality. 2. Small peripelvic cysts involving the left kidney. Carlo Bal Jr., MD Tibia/Fibula X-Ray 10/27/16 0000 Signed Impressions: Service Date/Time: Thursday, October 27, 2016 11:38 - CONCLUSION: I see no unexpected radiopaque foreign bodies. Gennaro Mueller MD FACR Tibia/Fibula X-Ray 10/27/16 Signed Impressions: Service Date/Time: Thursday, October 27, 2016 07:51 - CONCLUSION: 1. Severely comminuted fractures involving the distal tibia 2. Fractures involving the proximal and distal fibula Austin Candelario MD Radius/Ulna X-Ray 10/27/16 Signed Impressions: Service Date/Time: Thursday, October 27, 2016 11:38 - CONCLUSION: There is no radiopaque retained surgical instruments. Gennaro Mueller MD FACR Maxillofacial CT 10/27/16 Signed Impressions: Service Date/Time: Thursday, October 27, 2016 08:16 - CONCLUSION: 1. Acute fractures involving the nasion and nasal septum. 2. Periorbital soft tissue hematoma on the left. 3. Chronic maxillary sinus disease on the right. Carlo Bal Jr., MD Lower Extremity CT 10/27/16 Signed Impressions: Service Date/Time: Thursday, October 27, 2016 08:30 - CONCLUSION: 1. Multiple fractures involving the right foot. 2. Joint dislocation between the tarsal navicular bone and the talus. The tarsonavicular bone is dislocated anteriorly. Austin Candelario MD Lower Extremity CT 10/27/16 Signed Impressions: Service Date/Time: Thursday, October 27, 2016 08:30 - CONCLUSION: 1. Distal tibia and fibula are grossly intact. Good alignment at the mortise joint. 2. Multiple severe fractures of the right foot which are described on the CT scan of the foot. Austin Candelario MD Lower Extremity CT 10/27/16 Signed Impressions: Service Date/Time: Thursday, October 27, 2016 08:30 - CONCLUSION: Severely comminuted fracture the distal tibia. Multiple fractures involving the left foot as above Austin Candelario MD Lower Extremity CT 10/27/16 Signed Impressions: Service Date/Time: Thursday, October 27, 2016 08:35 - CONCLUSION: Complex severely comminuted open fracture injuries of the left ankle and hindfoot as described. Jacobo Bragg MD Foot X-Ray 10/27/16 Signed Impressions: Service Date/Time: Thursday, October 27, 2016 11:13 - CONCLUSION: Status post pinning as above. Austin Candelario MD Foot X-Ray 10/27/16 Signed Impressions: Service Date/Time: Thursday, October 27, 2016 07:51 - CONCLUSION: Limited study with no definite bony fractures on this single view. Recommend complete study when patient is stable. Austin Candelario MD Aorta w/Runoff CTA 10/27/16 Signed Impressions: Service Date/Time: Thursday, October 27, 2016 08:30 - CONCLUSION: 1. Patent inflow and outflow bilaterally. 2. Right lower extremity has patency of the trifurcation vessels to the level of the ankle joint. I am able to see the dorsalis pedis artery within its most inferior extent. The posterior tibial artery seen patent to the level just below the medial malleolus. No extravasation to suggest hemorrhage. 3. Left lower extremity shows lack of visualization of the anterior tibial artery beginning just above the ankle joint. This may relate to spasm. I see no extravasation. The posterior tibial artery is patent to level just below the medial malleolus. Carlo Bal Jr., MD Ankle X-Ray 10/27/16 Signed Impressions: Service Date/Time: Thursday, October 27, 2016 11:13 - CONCLUSION: Severely comminuted fractures predominantly involving the distal tibia Austin Candelario MD Ankle X-Ray 10/27/16 Signed Impressions: Service Date/Time: Thursday, October 27, 2016 07:51 - CONCLUSION: Limited examination. Soft tissue swelling with subcutaneous emphysema along the lateral malleolus area. Distal tibia and fibula are grossly intact. Austin Candelario MD Objective Remarks LLE: dressings clean and dry. +exfix. RLE: +short leg splint. able to flex/extend toes +sensation Assessment & Plan Assessment and Plan 1) Left Tibial pilon fx with fibula fxs and degloving s/p exfix 2) Right calcaneus fx/dislocation s/p I&D and splinting -will evaluate for OR next week -pin care of exfix -maintain splint -monitor Juan R Liu Oct 29, 2016 18:47
[2016-10-29] MEDS: CALCIUM CARBONATE 500 MG CHEWABLE TAB CHEW SCH (21:30)
[2016-10-29 22:54] LABS: HEMATOCRIT 21.8 % (39.0-51.0); REVIEW FLAG FINAL
[2016-10-30] VITALS (8 sets, daily range): BP systolic 109–127; BP diastolic 55–82; PULSE 88–105; RESP 16–20; TEMP 97.1–99.4; O2SAT 91–96
[2016-10-30] MEDS: ACETAMINOPHEN 325 MG TAB PO SCH ×4 (01:41→20:00)
[2016-10-30] MEDS: ceFAZolin 2 GM PREMIX 50 ML IV SCH ×2 (01:41→11:11)
[2016-10-30] MEDS ORDERED: SODIUM CHLORID 0.9% 500 ML IV SCH (03:00)
[2016-10-30] MEDS: LACTATED RINGER'S 1000 ML IV SCH (03:00)
[2016-10-30] MEDS ORDERED: INSULIN HUMAN REGULAR 1,000 UNITS/10 ML VIAL SQ PRN (03:00)
[2016-10-30] MEDS: oxyCODONE HCL ORAL CONC 20 MG/ML SYRINGE PO PRN ×3 (03:35→16:41)
[2016-10-30] MEDS: CHLORHEXIDINE GLUCONATE 2 % 1 PACK (2 CLOTHS) TOP SCH (04:00)
[2016-10-30] MEDS: GENTAMICIN 80 MG PREMIX 100 ML IV SCH ×2 (05:38→13:44)
[2016-10-30] MEDS: RESP: ALBUTEROL 2.5 MG/IPRATROPIUM 0.5 MG NEB (SCH) INH ×4 (05:50→20:30)
[2016-10-30] MEDS: INSULIN NovoLIN REGULAR SUPPLEMENTAL SCALE SQ SCH ×3 (06:00→12:00)
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
[2016-10-30 07:04] LABS: HEMATOCRIT 22.9 % (39.0-51.0); MEAN CELL VOLUME 86.1 FL (80.0-100.0); MEAN CORPUSCULAR HEMOGLOBIN 29.3 PG (27.0-34.0); PLATELET COUNT 105 TH/MM3 (150-450); RED BLOOD COUNT 2.66 MIL/MM3 (4.50-5.90); RED CELL DISTRIBUTION WIDTH 16.6 % (11.6-17.2); REVIEW FLAG FINAL; WHITE BLOOD COUNT 8.5 TH/MM3 (4.0-11.0)
[2016-10-30 07:32] LABS: BICARBONATE 29.5 MEQ/L (21.0-32.0); POTASSIUM 3.4 MEQ/L (3.5-5.1)
[2016-10-30] MEDS: BACITRACIN TOP OINT 15 GM TUBE TOP SCH ×3 (09:00→22:07)
[2016-10-30] MEDS: CALCIUM CARBONATE 500 MG CHEWABLE TAB CHEW SCH ×2 (09:00→22:05)
[2016-10-30] MEDS: GABAPENTIN 100 MG CAP PO SCH ×3 (09:00→18:00)
[2016-10-30] MEDS ORDERED: POTASSIUM CHLORIDE 10 MEQ CONTROLLED RELEASE TAB PO ONE (11:00)
[2016-10-30] MEDS: DOCUSATE SODIUM 50 MG/SENNA 8.6 MG TAB PO SCH ×2 (11:06→22:05)
[2016-10-30] MEDS: FAMOTIDINE 20 MG TAB PO SCH ×2 (11:09→22:05)
--- NOTE | 2016-10-30 12:32 | EKG ---
Date Performed: 10/30/2016 Time Performed: 07:11:40 PTAGE: 66 years EKG: Sinus rhythm LOW QRS VOLTAGE IN PRECORDIAL LEADS NONSPECIFIC T-WAVE ABNORMALITY BORDERLINE ECG NO PREVIOUS TRACING DOCTOR: Raul Correia Interpretating Date/Time 10/30/2016 12:29:52
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
[2016-10-30] MEDS ORDERED: LACTULOSE SYRUP 20 GM/30 ML CUP PO ONE (15:00)
--- NOTE | 2016-10-30 18:38 | RADRPT ---
EXAM DATE/TIME: 10/30/2016 16:58 [facility] COMPARISON: CT THORAX W CONTRAST, October 27, 2016, 8:21. INDICATIONS : Evaluate fracture. MEDICAL HISTORY : None. SURGICAL HISTORY : Rotator cuff surgery. ENCOUNTER: Initial ACUITY: 4 - 6 days PAIN SCORE: 10/10 LOCATION: Left shoulder. FINDINGS: There is a humeral head fracture evident with the greater tuberosity a free fragment. T here is a horizontal fracture across the surgical neck of the humerus. The humeral head is partially aligned with the acetabulum. CONCLUSION: 1. Fracture as described above. This was described in detail on the CT scan of the chest. 2. Alignment is not anatomic. Gennaro Mueller MD FACR on October 30, 2016 at 17:23 Board Certified Radiologist. This report was verified electronically.
[2016-10-30] MEDS: MAGNESIUM HYDROXIDE SUSP 30 ML CUP PO SCH (22:05)
[2016-10-31] VITALS (7 sets, daily range): BP systolic 115–131; BP diastolic 54–68; PULSE 89–103; RESP 16–18; TEMP 96–98.9; O2SAT 90–94
[2016-10-31] MEDS: INSULIN NovoLIN REGULAR SUPPLEMENTAL SCALE SQ SCH ×4 (00:26→23:51)
[2016-10-31] MEDS: HYDROmorphone HCL PF 1 MG/ML VIAL IV PUSH PRN ×3 (00:26→21:39)
[2016-10-31] MEDS: ACETAMINOPHEN 325 MG TAB PO SCH ×4 (02:30→20:00)
[2016-10-31] MEDS: CHLORHEXIDINE GLUCONATE 2 % 1 PACK (2 CLOTHS) TOP SCH (04:00)
[2016-10-31] MEDS: RESP: ALBUTEROL 2.5 MG/IPRATROPIUM 0.5 MG NEB (SCH) INH ×2 (04:09→10:00)
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
[2016-10-31 07:28] LABS: AUTOMATED NEUTROPHIL # 6.1 TH/MM3 (1.8-7.7); BASOPHIL % 0.1 % (0.0-2.0); EOSINOPHIL % 0.3 % (0.0-4.0); HEMATOCRIT 21.3 % (39.0-51.0); HEMO FLAGS DIFF FINAL; LYMPH % 8.1 % (9.0-44.0); LYMPHOCYTE # 0.6 TH/MM3 (1.0-4.8); MEAN CELL VOLUME 85.9 FL (80.0-100.0); MEAN CORPUSCULAR HEMOGLOBIN 30.2 PG (27.0-34.0); MEAN CORPUSCULAR HGB CONC 35.2 % (32.0-36.0); MONO % 10.9 % (0.0-8.0); NEUT % 80.6 % (16.0-70.0); PLATELET COUNT 148 TH/MM3 (150-450); RED BLOOD COUNT 2.48 MIL/MM3 (4.50-5.90); RED CELL DISTRIBUTION WIDTH 16.2 % (11.6-17.2); WHITE BLOOD COUNT 7.6 TH/MM3 (4.0-11.0)
[2016-10-31] MEDS ORDERED: GENTAMICIN SULFATE 80 MG/2 ML VIAL ONE ×2 (07:42→07:43)
[2016-10-31] MEDS: CALCIUM CARBONATE 500 MG CHEWABLE TAB CHEW SCH ×3 (09:00→20:52)
[2016-10-31] MEDS: GABAPENTIN 100 MG CAP PO SCH ×3 (09:00→18:00)
[2016-10-31] MEDS: DOCUSATE SODIUM 50 MG/SENNA 8.6 MG TAB PO SCH ×2 (09:01→20:47)
[2016-10-31] MEDS: BACITRACIN TOP OINT 15 GM TUBE TOP SCH ×2 (09:01→20:51)
[2016-10-31] MEDS: FAMOTIDINE 20 MG TAB PO SCH ×2 (09:01→20:47)
[2016-10-31] MEDS ORDERED: SODIUM CHLOR 0.9% 250 ML INJ 250 ML ONE (10:16)
[2016-10-31] MEDS ORDERED: VANCOMYCIN HCL 1000 MG VIAL ONE (10:16)
[2016-10-31] MEDS ORDERED: ceFAZolin 2 GM PREMIX 50 ML ONE (10:16)
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
[2016-10-31] MEDS ORDERED: HYDROmorphone HCL PF 2 MG/ML VIAL ONE (12:20)
[2016-10-31] MEDS ORDERED: ACETAMINOPHEN 1000 MG/100 ML VIAL IV ONE (12:20)
[2016-10-31] MEDS ORDERED: PROPOFOL 200 MG/20 ML AMP IV ONE (12:40)
[2016-10-31] MEDS ORDERED: ONDANSETRON HCL 4 MG/2 ML VIAL IV PUSH ONE (12:40)
[2016-10-31] MEDS ORDERED: NORMOSOL R INJ 1,000 ML IV ONE (12:40)
[2016-10-31] MEDS ORDERED: NEOSTIGMINE 3 MG/3 ML SYR IV ONE (12:40)
--- NOTE | 2016-10-31 13:25 | RADRPT ---
EXAM DATE/TIME: 10/31/2016 12:32 [facility] COMPARISON: No previous studies available for comparison. INDICATIONS : Left proximal humerus fracture repair. OR. MEDICAL HISTORY : None. SURGICAL HISTORY : None. ENCOUNTER: Initial ACUITY: 1 day PAIN SCORE: Non-responsive. LOCATION: Left shoulder CONCLUSION: Fluoroscopic images during placement of compression plate and multiple screws fixating left humeral f racture.. Jayme Marquez MD on October 31, 2016 at 13:23 Board Certified Radiologist. This report was verified electronically.
[2016-10-31] MEDS ORDERED: diphenhydrAMINE HCL 25 MG CAP PO PRN (13:30)
[2016-10-31] MEDS ORDERED: SODIUM CHLORIDE 0.9% FLUSH 5 ML FLUSH IVF PRN (13:30)
--- NOTE | 2016-10-31 13:30 | PD.OP ---
cc: Sedrick Dutton MD Operative Report Date of Surgery: Oct 31, 2016 Preoperative Diagnosis: Closed 4 part left proximal humerus fracture, open left leg fasciotomy, open right calcaneus fracture, multiple bilateral lower extremity fractures Postoperative Diagnosis: Procedure: Open reduction internal fixation left proximal humerus 4 part fracture, irrigation and debridement of left calf fasciotomy with application of wound VAC dressing, irrigation and debridement of right open calcaneus fracture, complex closure 10 cm laceration right foot Anesthesia: Gen. Surgeon: Sedrick Dutton Gas Manager(s): CALI Wolf PA-C The surgical procedure was assisted by my physician certified nursing assistant instructor. My P.A. presence was necessary throughout this case for the manipulation and positioning of the surgical extremity. My P.A. was assisting me throughout the duration of this procedure. The skill set of a physician certified nursing assistant instructor was medically necessary to complete this procedure. During the surgical case the surgical pathologist was working at the back table and the physician certified nursing assistant instructor was directly assisting me. Operation and Findings: Patient was seen and evaluated preoperatively. Patient was found to have a displaced proximal humerus fracture and multiple bilateral lower extremity fractures. The risks and benefits of surgical and nonsurgical options were discussed in detail and informed consent was obtained for surgery. Patient was brought to the operating room and placed on or table. IV sedation and GETA were administered by anesthesiologist. Antibiotics were given prior to incision. Operative arm and shoulder were prepped with alcohol followed by Hibiclens and draped usual sterile fashion. Timeout procedure was performed. Procedure began with a 5 inch incision over the anterior shoulder. Cephalic vein was identified. A deltopectoral approach was utilized. The fracture was now visualized. Soft tissue was retracted. A #5 FiberWire suture was placed into the rotator rotator cuff and greater tuberosity. A second FiberWire suture was placed in the lesser tuberosity and rotator cuff. Attention was now turned to reduction. Gentle traction was applied. The humeral shaft was reduced to the humeral head. Fracture was manipulated to achieve excellent reduction. Multiplanar fluoroscopy confirmed well aligned fracture. Multiple K wires were used to hold provisional fixation. A Synthes proximal humerus plate was selected. Plate was provisionally held in place K wires. 3.5 cortical screws were used to compress plate to bone. Fluoroscopy confirmed appropriate plate placement and fracture reduction. Multiple locking screws were now placed in the humeral head. Screws were predrilled and premeasured for appropriate length. Care was taken not to penetrate the articular surface. Additional screws were placed in the humeral shaft. The FiberWire suture was passed through the holes of the plate and sutured to the plate for additional stability. Final fluoroscopy revealed well aligned fracture with well-placed hardware. Wound was thoroughly irrigated. Fascia was closed with #1 Vicryl, subcutaneous tissues closed with 3-0 Vicryl, and skin was closed with tasha. Sterile dressings were applied. Patient was placed into a sling. Next bilateral lower extremities were prepped with alcohol. Hibiclens and draped in usual sterile fashion. Procedure began with the right foot. The open wound was debrided. Skin and subcutaneous tissue fascia and bone were sharply debrided with scalpel and rongeur. There is significant damage to the heel pad of the foot. Multiple small bone fragments were removed. Wound was thoroughly irrigated with sterile saline. Next attention was turned towards closure of the right foot laceration. Subcutaneous tissues closed with 3-0 PDS. Skin was closed with 3-0 nylon. The comminution of vertical mattress and retention sutures were utilized. Wound was completely closed. Next attention was turned to the left leg. Was a large fasciotomy wound was opened. Wound was thoroughly irrigated. The fibular fracture was also debrided with curettes. Overall the compartments of the anterior and lateral calf. The healthy and viable. Wound was thoroughly irrigated but was relatively clean. At this point attention turned to partial closure. Skin was reapproximated with 3-0 Vicryl. Next attention was turned to wound VAC dressing. A wound VAC was cut to fit the open wound to the left leg. VAC dressing was sealed appropriately. Sterile dressings were applied. Patient placed in a splint on his right leg. Patient was awakened and transferred to recovery in stable condition. Needle and sponge counts were correct. Sedrick Dutton MD Oct 31, 2016 13:30
[2016-10-31] MEDS ORDERED: MIDAZOLAM HCL 2 MG/2 ML VIAL ONE (13:44)
[2016-10-31] MEDS ORDERED: fentaNYL CITRATE 250 MCG/5 ML AMP ONE (13:45)
[2016-10-31] MEDS ORDERED: DO NOT ADM ANY ANTICOAGULANT DRUGS XX PRN (14:11)
[2016-10-31] MEDS ORDERED: *MEPERIDINE 25 MG INJ VIAL PERIprocedural Use ONLY ONE (14:15)
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
[2016-10-31] MEDS: ceFAZolin 2 GM PREMIX 50 ML IV SCH ×2 (17:05→23:51)
[2016-10-31] MEDS: MAGNESIUM HYDROXIDE SUSP 30 ML CUP PO SCH (20:47)
[2016-10-31] MEDS: SODIUM CHLORIDE 0.9% FLUSH 5 ML FLUSH IVF SCH (20:51)
[2016-11-01] VITALS (11 sets, daily range): BP systolic 117–135; BP diastolic 57–72; PULSE 82–112; RESP 16–18; TEMP 96.7–98.7; O2SAT 93–97
[2016-11-01] MEDS: ACETAMINOPHEN 325 MG TAB PO SCH ×4 (02:00→21:41)
[2016-11-01] MEDS: LACTATED RINGER'S 1000 ML IV SCH (03:00)
[2016-11-01] MEDS: CHLORHEXIDINE GLUCONATE 2 % 1 PACK (2 CLOTHS) TOP SCH (04:00)
[2016-11-01] MEDS: oxyCODONE HCL ORAL CONC 20 MG/ML SYRINGE PO PRN (04:14)
[2016-11-01] MEDS: INSULIN NovoLIN REGULAR SUPPLEMENTAL SCALE SQ SCH (06:00)
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
[2016-11-01 07:14] LABS: MEAN CELL VOLUME 86.5 FL (80.0-100.0); MEAN CORPUSCULAR HEMOGLOBIN 29.5 PG (27.0-34.0); MEAN CORPUSCULAR HGB CONC 34.1 % (32.0-36.0); PLATELET COUNT 166 TH/MM3 (150-450); RED CELL DISTRIBUTION WIDTH 15.9 % (11.6-17.2)
[2016-11-01 07:25] LABS: REVIEW FLAG FINAL
[2016-11-01 07:28] LABS: HEMATOCRIT 19.9 % (39.0-51.0)
[2016-11-01 07:33] LABS: BICARBONATE 29.2 MEQ/L (21.0-32.0); POTASSIUM 3.8 MEQ/L (3.5-5.1)
[2016-11-01 07:45] LABS: CALCIUM-PROTEIN CORRECTED 8.5 MG/DL (8.5-10.1)
[2016-11-01] MEDS: BACITRACIN TOP OINT 15 GM TUBE TOP SCH ×2 (08:17→21:42)
[2016-11-01] MEDS: DOCUSATE SODIUM 50 MG/SENNA 8.6 MG TAB PO SCH ×2 (08:17→21:00)
[2016-11-01] MEDS: ceFAZolin 2 GM PREMIX 50 ML IV SCH ×3 (08:18→23:56)
[2016-11-01] MEDS: SODIUM CHLORIDE 0.9% FLUSH 5 ML FLUSH IVF SCH ×2 (08:19→21:42)
[2016-11-01] MEDS: FAMOTIDINE 20 MG TAB PO SCH ×2 (08:38→21:00)
[2016-11-01] MEDS: GABAPENTIN 100 MG CAP PO SCH ×3 (08:38→18:00)
[2016-11-01] MEDS: CALCIUM CARBONATE 500 MG CHEWABLE TAB CHEW SCH ×2 (08:38→21:00)
[2016-11-01] MEDS: LACTULOSE SYRUP 20 GM/30 ML CUP PO SCH (08:41)
[2016-11-01] MEDS ORDERED: FUROSEMIDE 20 MG/2 ML VIAL IV ONE (08:45)
[2016-11-01] MEDS ORDERED: SODIUM CHLOR 0.9% 250 ML INJ 250 ML IV ONE (08:45)
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
[2016-11-01] MEDS: MAGNESIUM HYDROXIDE SUSP 30 ML CUP PO SCH (21:00)
[2016-11-01 23:41] LABS: HEMATOCRIT 23.9 % (39.0-51.0); REVIEW FLAG FINAL
[2016-11-02 00:20] VITALS: BP 124/64; PULSE 91; RESP 17; TEMP 96.9; O2SAT 93
[2016-11-02] MEDS: LACTATED RINGER'S 1000 ML IV SCH (03:00)
[2016-11-02] MEDS: FAMOTIDINE 20 MG TAB PO SCH ×3 (05:16→21:33)
[2016-11-02] MEDS: CALCIUM CARBONATE 500 MG CHEWABLE TAB CHEW SCH ×2 (05:16→21:32)
[2016-11-02 06:56] LABS: HEMATOCRIT 24.7 % (39.0-51.0); MEAN CELL VOLUME 84.4 FL (80.0-100.0); MEAN CORPUSCULAR HEMOGLOBIN 29.2 PG (27.0-34.0); MEAN CORPUSCULAR HGB CONC 34.6 % (32.0-36.0); PLATELET COUNT 231 TH/MM3 (150-450); RED BLOOD COUNT 2.92 MIL/MM3 (4.50-5.90); RED CELL DISTRIBUTION WIDTH 16.2 % (11.6-17.2); REVIEW FLAG FINAL; WHITE BLOOD COUNT 8.2 TH/MM3 (4.0-11.0)
[2016-11-02 07:22] LABS: POTASSIUM 3.6 MEQ/L (3.5-5.1)
[2016-11-02 08:00] VITALS: BP 129/67; PULSE 87; RESP 18; TEMP 98.2; O2SAT 97
[2016-11-02] MEDS: ACETAMINOPHEN 325 MG TAB PO SCH ×4 (08:00→21:33)
[2016-11-02] MEDS: BACITRACIN TOP OINT 15 GM TUBE TOP SCH ×2 (09:00→21:35)
[2016-11-02] MEDS: LACTULOSE SYRUP 20 GM/30 ML CUP PO SCH (09:00)
[2016-11-02] MEDS: DOCUSATE SODIUM 50 MG/SENNA 8.6 MG TAB PO SCH ×2 (09:00→21:35)
[2016-11-02 09:13] VITALS: O2SAT 92
[2016-11-02] MEDS: GABAPENTIN 100 MG CAP PO SCH ×3 (09:35→18:30)
[2016-11-02] MEDS: ceFAZolin 2 GM PREMIX 50 ML IV SCH ×3 (09:37→23:55)
[2016-11-02] MEDS: SODIUM CHLORIDE 0.9% FLUSH 5 ML FLUSH IVF SCH ×2 (09:38→21:35)
--- NOTE | 2016-11-02 11:24 | PD.ORT.PN ---
Subjective Subjective Remarks Pain control, no new complaints Objective Vitals Vital Signs Date Time Temp Pulse Resp B/P Pulse Ox O2 Delivery O2 Flow Rate FiO2 11/02/16 09:45 Nasal Cannula 2.00 11/02/16 08:00 98.2 87 18 129/67 97 11/02/16 00:20 96.9 91 17 124/64 93 11/01/16 21:32 98.5 104 18 123/57 95 11/01/16 20:40 98.5 104 18 123/57 95 11/01/16 20:00 95 Nasal Cannula 2.00 11/01/16 17:55 97.3 101 16 130/62 96 11/01/16 17:40 98.1 87 18 129/72 96 11/01/16 15:53 98.7 93 17 119/60 95 11/01/16 11:30 95 Nasal Cannula 3.00 I/O 11/01/16 11/01/16 11/01/16 11/02/16 11/02/16 11/02/16 07:00 15:00 23:00 07:00 15:00 23:00 Intake Total 480 ml 381 ml 480 ml 480 ml Output Total 400 ml 25 ml 400 ml 1000 ml Balance 80 ml 356 ml 80 ml -520 ml Intake Oral 480 ml 480 ml 480 ml IV Total 381 ml Output Urine Total 400 ml 400 ml 1000 ml Drainage Total 25 ml # Bowel Movements 0 1 1 1 Result Diagram: 11/02/1662111/02/16621 Imaging Last 24 hours Impressions Thoracic Spine CT 10/27/16812 Signed Impressions: Service Date/Time: Thursday, October 27, 2016 08:22 - CONCLUSION: Negative CT scan of the thoracic spine for acute traumatic injury. Gennaro Mueller MD FACR Pelvis X-Ray 10/27/16812 Signed Impressions: Service Date/Time: Thursday, October 27, 2016 07:51 - CONCLUSION: No definite bony fracture or joint dislocation. Austin Candelario MD Lumbar Spine CT 10/27/16812 Signed Impressions: Service Date/Time: Thursday, October 27, 2016 08:21 - CONCLUSION: 1. Mild nondisplaced facture involving the anterior superior endplate of L3. 2. Primary bony degenerative changes of the lumbar spine. 3. Mild diffuse broad-based bulging L4-5 4. Bilateral facet arthritis. Austin Candelario MD Head CT 10/27/16812 Signed Impressions: Service Date/Time: Thursday, October 27, 2016 08:16 - CONCLUSION: No acute intracranial hemorrhage. Austin Candelario MD Chest X-Ray 10/27/16812 Signed Impressions: Service Date/Time: Thursday, October 27, 2016 07:51 - CONCLUSION: No definite acute pulmonary infiltrates. CT thorax to follow. Austin Candelario MD Chest CT 10/27/16812 Signed Impressions: Service Date/Time: Thursday, October 27, 2016 08:21 - CONCLUSION: 1. Acute left proximal humeral fracture. 2. No acute intrathoracic abnormality. 3. 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 Carlo Bal Jr., MD Cervical Spine CT 10/27/16812 Signed Impressions: Service Date/Time: Thursday, October 27, 2016 08:18 - CONCLUSION: 1. No fracture or dislocation. 2. Degenerative changes at C6-C7. Carlo Bal Jr., MD Abdomen/Pelvis CT 10/27/16812 Signed Impressions: Service Date/Time: Thursday, October 27, 2016 08:21 - CONCLUSION: 1. No acute abnormality. 2. Small peripelvic cysts involving the left kidney. Carlo Bal Jr., MD Tibia/Fibula X-Ray 10/27/16 Signed Impressions: Service Date/Time: Thursday, October 27, 2016 11:38 - CONCLUSION: I see no unexpected radiopaque foreign bodies. Gennaro Mueller MD FACR Tibia/Fibula X-Ray 10/27/16 Signed Impressions: Service Date/Time: Thursday, October 27, 2016 07:51 - CONCLUSION: 1. Severely comminuted fractures involving the distal tibia 2. Fractures involving the proximal and distal fibula Austin Candelario MD Radius/Ulna X-Ray 10/27/16 Signed Impressions: Service Date/Time: Thursday, October 27, 2016 11:38 - CONCLUSION: There is no radiopaque retained surgical instruments. Gennaro Mueller MD FACR Maxillofacial CT 10/27/16 Signed Impressions: Service Date/Time: Thursday, October 27, 2016 08:16 - CONCLUSION: 1. Acute fractures involving the nasion and nasal septum. 2. Periorbital soft tissue hematoma on the left. 3. Chronic maxillary sinus disease on the right. Carlo Bal Jr., MD Lower Extremity CT 10/27/16 Signed Impressions: Service Date/Time: Thursday, October 27, 2016 08:30 - CONCLUSION: 1. Multiple fractures involving the right foot. 2. Joint dislocation between the tarsal navicular bone and the talus. The tarsonavicular bone is dislocated anteriorly. Austin Candelario MD Lower Extremity CT 10/27/16 Signed Impressions: Service Date/Time: Thursday, October 27, 2016 08:30 - CONCLUSION: 1. Distal tibia and fibula are grossly intact. Good alignment at the mortise joint. 2. Multiple severe fractures of the right foot which are described on the CT scan of the foot. Austin Candelario MD Lower Extremity CT 10/27/16 Signed Impressions: Service Date/Time: Thursday, October 27, 2016 08:30 - CONCLUSION: Severely comminuted fracture the distal tibia. Multiple fractures involving the left foot as above Austin Candelario MD Lower Extremity CT 10/27/16 Signed Impressions: Service Date/Time: Thursday, October 27, 2016 08:35 - CONCLUSION: Complex severely comminuted open fracture injuries of the left ankle and hindfoot as described. Jacobo Bragg MD Foot X-Ray 10/27/16 Signed Impressions: Service Date/Time: Thursday, October 27, 2016 11:13 - CONCLUSION: Status post pinning as above. Austin Candelario MD Foot X-Ray 10/27/16 Signed Impressions: Service Date/Time: Thursday, October 27, 2016 07:51 - CONCLUSION: Limited study with no definite bony fractures on this single view. Recommend complete study when patient is stable. Austin Candelario MD Aorta w/Runoff CTA 10/27/16 Signed Impressions: Service Date/Time: Thursday, October 27, 2016 08:30 - CONCLUSION: 1. Patent inflow and outflow bilaterally. 2. Right lower extremity has patency of the trifurcation vessels to the level of the ankle joint. I am able to see the dorsalis pedis artery within its most inferior extent. The posterior tibial artery seen patent to the level just below the medial malleolus. No extravasation to suggest hemorrhage. 3. Left lower extremity shows lack of visualization of the anterior tibial artery beginning just above the ankle joint. This may relate to spasm. I see no extravasation. The posterior tibial artery is patent to level just below the medial malleolus. Carlo Bal Jr., MD Ankle X-Ray 10/27/16 0000 Signed Impressions: Service Date/Time: Thursday, October 27, 2016 11:13 - CONCLUSION: Severely comminuted fractures predominantly involving the distal tibia Austin Candelario MD Ankle X-Ray 10/27/16 0000 Signed Impressions: Service Date/Time: Thursday, October 27, 2016 07:51 - CONCLUSION: Limited examination. Soft tissue swelling with subcutaneous emphysema along the lateral malleolus area. Distal tibia and fibula are grossly intact. Austin Candelario MD Objective Remarks LLE: dressings clean and dry. +exfix. +vac with good seal RLE: +short leg splint. able to flex/extend toes +sensation LUE: dressings clean and dry. intact. NVI. + sling Assessment & Plan Assessment and Plan Nothing by mouth after midnight Plan on surgery tomorrow with Dr. Dutton- [facility] Pain control and maintain wound VAC BEN ANTONY PA-C Nov 02, 2016 11:24
[2016-11-02 12:00] VITALS: BP 122/60; PULSE 96; RESP 18; TEMP 98; O2SAT 97
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
[2016-11-02 16:00] VITALS: BP 123/70; PULSE 88; RESP 18; TEMP 97.6; O2SAT 96
[2016-11-02] MEDS ORDERED: TADALAFIL 2.5 MG PO SCH (16:45)
[2016-11-02 19:24] VITALS: BP 124/65; PULSE 83; RESP 18; TEMP 97.9; O2SAT 98
[2016-11-02] MEDS: MAGNESIUM HYDROXIDE SUSP 30 ML CUP PO SCH (21:35)
[2016-11-03] VITALS (7 sets, daily range): BP systolic 110–139; BP diastolic 56–72; PULSE 73–88; RESP 16–20; TEMP 96–98.8; O2SAT 93–100
[2016-11-03] MEDS: LACTATED RINGER'S 1000 ML IV SCH ×2 (01:30→21:02)
[2016-11-03] MEDS: ACETAMINOPHEN 325 MG TAB PO SCH ×4 (02:45→21:03)
[2016-11-03 05:29] LABS: MEAN CELL VOLUME 84.9 FL (80.0-100.0); MEAN CORPUSCULAR HEMOGLOBIN 29.1 PG (27.0-34.0); MEAN CORPUSCULAR HGB CONC 34.2 % (32.0-36.0); PLATELET COUNT 279 TH/MM3 (150-450); RED BLOOD COUNT 2.94 MIL/MM3 (4.50-5.90); REVIEW FLAG FINAL; WHITE BLOOD COUNT 7.8 TH/MM3 (4.0-11.0)
[2016-11-03 05:52] LABS: BICARBONATE 27.4 MEQ/L (21.0-32.0); POTASSIUM 3.3 MEQ/L (3.5-5.1)
--- NOTE | 2016-11-03 07:16 | PD.ORT.PN ---
Subjective Subjective Remarks Pain control, no new complaints Objective Vitals Vital Signs Date Time Temp Pulse Resp B/P Pulse Ox O2 Delivery O2 Flow Rate FiO2 11/03/16 07:08 Room Air 11/03/16 04:00 98.8 81 16 129/64 93 11/03/16 00:00 96.7 83 16 123/57 94 11/02/16 19:24 97.9 83 18 124/65 98 11/02/16 16:00 97.6 88 18 123/70 96 11/02/16 12:00 98.0 96 18 122/60 97 11/02/16 09:45 Nasal Cannula 2.00 11/02/16 09:13 92 21 11/02/16 08:00 98.2 87 18 129/67 97 I/O 11/02/16 11/02/16 11/02/16 11/03/16 11/03/16 11/03/16 07:00 15:00 23:00 07:00 15:00 23:00 Intake Total 480 ml 1320 ml 0 ml Output Total 1000 ml 1170 ml 1200 ml Balance -520 ml 150 ml -1200 ml Intake Oral 480 ml 1320 ml 0 ml Output Urine Total 1000 ml 1170 ml 1200 ml Drainage Total 0 ml 0 ml # Bowel Movements 1 1 Result Diagram: 11/03/16 0515 11/03/16 0515 Imaging Last 24 hours Impressions Thoracic Spine CT 10/27/16812 Signed Impressions: Service Date/Time: Thursday, October 27, 2016 08:22 - CONCLUSION: Negative CT scan of the thoracic spine for acute traumatic injury. Gennaro Mueller MD FACR Pelvis X-Ray 10/27/16812 Signed Impressions: Service Date/Time: Thursday, October 27, 2016 07:51 - CONCLUSION: No definite bony fracture or joint dislocation. Austin Candelario MD Lumbar Spine CT 10/27/16812 Signed Impressions: Service Date/Time: Thursday, October 27, 2016 08:21 - CONCLUSION: 1. Mild nondisplaced facture involving the anterior superior endplate of L3. 2. Primary bony degenerative changes of the lumbar spine. 3. Mild diffuse broad-based bulging L4-5 4. Bilateral facet arthritis. Austin Candelario MD Head CT 10/27/16812 Signed Impressions: Service Date/Time: Thursday, October 27, 2016 08:16 - CONCLUSION: No acute intracranial hemorrhage. Austin Candelario MD Chest X-Ray 10/27/16812 Signed Impressions: Service Date/Time: Thursday, October 27, 2016 07:51 - CONCLUSION: No definite acute pulmonary infiltrates. CT thorax to follow. Austin Candelario MD Chest CT 10/27/16812 Signed Impressions: Service Date/Time: Thursday, October 27, 2016 08:21 - CONCLUSION: 1. Acute left proximal humeral fracture. 2. No acute intrathoracic abnormality. 3. 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 Carlo Bal Jr., MD Cervical Spine CT 10/27/16812 Signed Impressions: Service Date/Time: Thursday, October 27, 2016 08:18 - CONCLUSION: 1. No fracture or dislocation. 2. Degenerative changes at C6-C7. Carlo Bal Jr., MD Abdomen/Pelvis CT 10/27/16812 Signed Impressions: Service Date/Time: Thursday, October 27, 2016 08:21 - CONCLUSION: 1. No acute abnormality. 2. Small peripelvic cysts involving the left kidney. Carlo Bal Jr., MD Tibia/Fibula X-Ray 10/27/16 Signed Impressions: Service Date/Time: Thursday, October 27, 2016 11:38 - CONCLUSION: I see no unexpected radiopaque foreign bodies. Gennaro Mueller MD FACR Tibia/Fibula X-Ray 10/27/16 Signed Impressions: Service Date/Time: Thursday, October 27, 2016 07:51 - CONCLUSION: 1. Severely comminuted fractures involving the distal tibia 2. Fractures involving the proximal and distal fibula Austin Candelario MD Radius/Ulna X-Ray 10/27/16 Signed Impressions: Service Date/Time: Thursday, October 27, 2016 11:38 - CONCLUSION: There is no radiopaque retained surgical instruments. Gennaro Mueller MD FACR Maxillofacial CT 10/27/16 0000 Signed Impressions: Service Date/Time: Thursday, October 27, 2016 08:16 - CONCLUSION: 1. Acute fractures involving the nasion and nasal septum. 2. Periorbital soft tissue hematoma on the left. 3. Chronic maxillary sinus disease on the right. Carlo Bal Jr., MD Lower Extremity CT 10/27/16 Signed Impressions: Service Date/Time: Thursday, October 27, 2016 08:30 - CONCLUSION: 1. Multiple fractures involving the right foot. 2. Joint dislocation between the tarsal navicular bone and the talus. The tarsonavicular bone is dislocated anteriorly. Austin Candelario MD Lower Extremity CT 10/27/16 Signed Impressions: Service Date/Time: Thursday, October 27, 2016 08:30 - CONCLUSION: 1. Distal tibia and fibula are grossly intact. Good alignment at the mortise joint. 2. Multiple severe fractures of the right foot which are described on the CT scan of the foot. Austin Candelario MD Lower Extremity CT 10/27/16 Signed Impressions: Service Date/Time: Thursday, October 27, 2016 08:30 - CONCLUSION: Severely comminuted fracture the distal tibia. Multiple fractures involving the left foot as above Austin Candelario MD Lower Extremity CT 10/27/16 Signed Impressions: Service Date/Time: Thursday, October 27, 2016 08:35 - CONCLUSION: Complex severely comminuted open fracture injuries of the left ankle and hindfoot as described. Jacobo Bragg MD Foot X-Ray 10/27/16 Signed Impressions: Service Date/Time: Thursday, October 27, 2016 11:13 - CONCLUSION: Status post pinning as above. Austin Candelario MD Foot X-Ray 10/27/16 Signed Impressions: Service Date/Time: Thursday, October 27, 2016 07:51 - CONCLUSION: Limited study with no definite bony fractures on this single view. Recommend complete study when patient is stable. Austin Candelario MD Aorta w/Runoff CTA 10/27/16 Signed Impressions: Service Date/Time: Thursday, October 27, 2016 08:30 - CONCLUSION: 1. Patent inflow and outflow bilaterally. 2. Right lower extremity has patency of the trifurcation vessels to the level of the ankle joint. I am able to see the dorsalis pedis artery within its most inferior extent. The posterior tibial artery seen patent to the level just below the medial malleolus. No extravasation to suggest hemorrhage. 3. Left lower extremity shows lack of visualization of the anterior tibial artery beginning just above the ankle joint. This may relate to spasm. I see no extravasation. The posterior tibial artery is patent to level just below the medial malleolus. Carlo Bal Jr., MD Ankle X-Ray 10/27/16 0000 Signed Impressions: Service Date/Time: Thursday, October 27, 2016 11:13 - CONCLUSION: Severely comminuted fractures predominantly involving the distal tibia Austin Candelario MD Ankle X-Ray 10/27/16 0000 Signed Impressions: Service Date/Time: Thursday, October 27, 2016 07:51 - CONCLUSION: Limited examination. Soft tissue swelling with subcutaneous emphysema along the lateral malleolus area. Distal tibia and fibula are grossly intact. Austin Candelario MD Objective Remarks LLE: dressings clean and dry. +exfix. +vac with good seal RLE: +short leg splint. able to flex/extend toes +sensation LUE: dressings clean and dry. intact. NVI. + sling Assessment & Plan Assessment and Plan Nothing by mouth Plan on surgery today with Dr. Dutton- see consents Hold [facility] Sign consent Pain control and maintain wound VAC BEN ANTONY PA-C Nov 03, 2016 07:16
[2016-11-03] MEDS: CALCIUM CARBONATE 500 MG CHEWABLE TAB CHEW SCH ×2 (07:59→21:03)
[2016-11-03] MEDS: ceFAZolin 2 GM PREMIX 50 ML IV SCH ×3 (08:00→21:01)
[2016-11-03] MEDS: LACTULOSE SYRUP 20 GM/30 ML CUP PO SCH (08:00)
[2016-11-03] MEDS: GABAPENTIN 100 MG CAP PO SCH ×3 (08:00→18:32)
[2016-11-03] MEDS: DOCUSATE SODIUM 50 MG/SENNA 8.6 MG TAB PO SCH ×2 (08:01→21:02)
[2016-11-03] MEDS: SODIUM CHLORIDE 0.9% FLUSH 5 ML FLUSH IVF SCH ×2 (08:07→21:02)
[2016-11-03] MEDS ORDERED: PROPOFOL 200 MG/20 ML AMP IV ONE (08:56)
[2016-11-03] MEDS ORDERED: ONDANSETRON HCL 4 MG/2 ML VIAL IV PUSH ONE (08:56)
[2016-11-03] MEDS: BACITRACIN TOP OINT 15 GM TUBE TOP SCH ×2 (09:00→21:00)
[2016-11-03] MEDS ORDERED: GENTAMICIN SULFATE 80 MG/2 ML VIAL ONE (11:42)
[2016-11-03] MEDS ORDERED: MIDAZOLAM HCL 2 MG/2 ML VIAL ONE (13:04)
[2016-11-03] MEDS ORDERED: APREPITANT 40 MG CAP ONE (13:05)
[2016-11-03] MEDS ORDERED: DEXAMETHASONE SOD PHOS 4 MG/ML VIAL ONE (13:05)
[2016-11-03] MEDS ORDERED: FAMOTIDINE 20 MG/2 ML VIAL ONE (13:05)
[2016-11-03] MEDS ORDERED: SODIUM CHLOR 0.9% 250 ML INJ 250 ML ONE (13:20)
[2016-11-03] MEDS ORDERED: VANCOMYCIN HCL 1000 MG VIAL ONE (13:20)
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
[2016-11-03] MEDS ORDERED: DO NOT ADM ANY ANTICOAGULANT DRUGS XX PRN (15:00)
[2016-11-03] MEDS ORDERED: fentaNYL CITRATE 250 MCG/5 ML AMP ONE (15:12)
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
[2016-11-03] MEDS: MAGNESIUM HYDROXIDE SUSP 30 ML CUP PO SCH (21:02)
[2016-11-03] MEDS: ENOXAPARIN SODIUM 30 MG/0.3 ML SYRINGE SQ SCH (21:02)
[2016-11-03] MEDS: FAMOTIDINE 20 MG TAB PO SCH (21:03)
[2016-11-03] MEDS: LACTATED RINGER'S 1000 ML INJ 1,000 ML IV SCH (21:40)
[2016-11-04] VITALS (7 sets, daily range): BP systolic 107–129; BP diastolic 57–67; PULSE 79–89; RESP 18–20; TEMP 95.9–98.2; O2SAT 93–97
[2016-11-04] MEDS: ACETAMINOPHEN 325 MG TAB PO SCH ×4 (02:00→22:42)
[2016-11-04] MEDS: ceFAZolin 2 GM PREMIX 50 ML IV SCH ×3 (04:58→22:45)
[2016-11-04 07:14] LABS: AUTOMATED NEUTROPHIL # 7.5 TH/MM3 (1.8-7.7); BASOPHIL # 0.1 TH/MM3 (0-0.2); BASOPHIL % 0.6 % (0.0-2.0); EOSINOPHIL # 0.1 TH/MM3 (0-0.4); LYMPH % 13.2 % (9.0-44.0); LYMPHOCYTE # 1.3 TH/MM3 (1.0-4.8); MEAN CELL VOLUME 85.6 FL (80.0-100.0); MEAN CORPUSCULAR HEMOGLOBIN 29.3 PG (27.0-34.0); MEAN CORPUSCULAR HGB CONC 34.2 % (32.0-36.0); MONO % 10.2 % (0.0-8.0); PLATELET COUNT 343 TH/MM3 (150-450); RED BLOOD COUNT 2.93 MIL/MM3 (4.50-5.90); RED CELL DISTRIBUTION WIDTH 15.9 % (11.6-17.2)
[2016-11-04 07:19] LABS: ALT (GPT) 45 U/L (12-78); ANION GAP 11 MEQ/L (5-15); AST (GOT) 65 U/L (15-37); BICARBONATE 25.4 MEQ/L (21.0-32.0); BLOOD UREA NITROGEN 18 MG/DL (7-18); CHLORIDE 103 MEQ/L (98-107); GLOMERULAR FILTRATION RATE 72 ML/MIN (>89); POTASSIUM 3.7 MEQ/L (3.5-5.1); SODIUM (NA) 139 MEQ/L (136-145)
[2016-11-04 07:21] LABS: ALKALINE PHOSPHATASE 248 U/L (45-117)
[2016-11-04 07:29] LABS: HEMO FLAGS AUTO DIFF
[2016-11-04] MEDS: LACTULOSE SYRUP 20 GM/30 ML CUP PO SCH (09:00)
[2016-11-04] MEDS: BACITRACIN TOP OINT 15 GM TUBE TOP SCH ×2 (09:00→22:46)
[2016-11-04] MEDS: DOCUSATE SODIUM 50 MG/SENNA 8.6 MG TAB PO SCH ×2 (09:00→22:42)
[2016-11-04 09:07] LABS: BANDS 2 % (0-6); BASOPHILS 1 % (0-2); CORRECTED NUCLEATED RBC 1 /100 WBC (0-0); EOSINOPHILS 1 % (0-4); MYELOCYTES 1 % (0-0); NEUTROPHIL # MANUAL DIFF 8.3 TH/MM3 (1.8-7.7); PLATELET ESTIMATE SMEAR NORMAL (NORMAL); PLATELET MORPHOLOGY NORMAL (NORMAL); POLYS (SEG NEUTROPHILS) 80 % (16-70); SCAN/DIFF FINAL DIFF MANUAL; WBC DIFF SAMPLE 100
--- NOTE | 2016-11-04 09:50 | PD.ORT.PN ---
Subjective Subjective Remarks in bed comfortable. pain controlled. no issues. no cp/sob Objective Vitals Vital Signs Date Time Temp Pulse Resp B/P Pulse Ox O2 Delivery O2 Flow Rate FiO2 11/04/16 08:00 98.2 81 20 129/63 95 11/04/16 05:41 96.4 85 18 108/58 93 11/04/16 01:05 96.7 83 18 107/57 94 11/03/16 21:10 96.0 88 20 110/56 98 11/03/16 16:35 96.7 75 18 139/72 96 11/03/16 16:15 Nasal Cannula 2.00 11/03/16 15:45 77 18 147/78 93 Nasal Cannula 2 11/03/16 15:30 80 18 139/72 92 Nasal Cannula 2 11/03/16 15:15 88 18 123/77 97 Nasal Cannula 2 11/03/16 15:10 98.3 87 18 123/83 95 Simple Mask 6 11/03/16 11:50 97.5 73 16 129/62 100 11/03/16 10:13 95 21 I/O 11/03/16 11/03/16 11/03/16 11/04/16 11/04/16 11/04/16 07:00 15:00 23:00 07:00 15:00 23:00 Intake Total 0 ml 2075 ml 110 ml Output Total 1200 ml 750 ml 250 ml Balance -1200 ml 1325 ml -140 ml Intake Oral 0 ml 0 ml IV Total 75 ml 110 ml Other 2000 ml Output Urine Total 1200 ml 650 ml 250 ml Drainage Total 0 ml 0 ml 0 ml Estimated Blood Loss 100 ml # Voids 0 # Bowel Movements 1 1 Result Diagram: 11/04/16 0635 11/04/16 0635 Imaging Last 24 hours Impressions Thoracic Spine CT 10/27/16812 Signed Impressions: Service Date/Time: Thursday, October 27, 2016 08:22 - CONCLUSION: Negative CT scan of the thoracic spine for acute traumatic injury. Gennaro Mueller MD FACR Pelvis X-Ray 10/27/16812 Signed Impressions: Service Date/Time: Thursday, October 27, 2016 07:51 - CONCLUSION: No definite bony fracture or joint dislocation. Austin Candelario MD Lumbar Spine CT 10/27/16812 Signed Impressions: Service Date/Time: Thursday, October 27, 2016 08:21 - CONCLUSION: 1. Mild nondisplaced facture involving the anterior superior endplate of L3. 2. Primary bony degenerative changes of the lumbar spine. 3. Mild diffuse broad-based bulging L4-5 4. Bilateral facet arthritis. Austin Candelario MD Head CT 10/27/16812 Signed Impressions: Service Date/Time: Thursday, October 27, 2016 08:16 - CONCLUSION: No acute intracranial hemorrhage. Austin Candelario MD Chest X-Ray 10/27/16812 Signed Impressions: Service Date/Time: Thursday, October 27, 2016 07:51 - CONCLUSION: No definite acute pulmonary infiltrates. CT thorax to follow. Austin Candelario MD Chest CT 10/27/16812 Signed Impressions: Service Date/Time: Thursday, October 27, 2016 08:21 - CONCLUSION: 1. Acute left proximal humeral fracture. 2. No acute intrathoracic abnormality. 3. 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 Carlo Bal Jr., MD Cervical Spine CT 10/27/16812 Signed Impressions: Service Date/Time: Thursday, October 27, 2016 08:18 - CONCLUSION: 1. No fracture or dislocation. 2. Degenerative changes at C6-C7. Carlo Bal Jr., MD Abdomen/Pelvis CT 10/27/16812 Signed Impressions: Service Date/Time: Thursday, October 27, 2016 08:21 - CONCLUSION: 1. No acute abnormality. 2. Small peripelvic cysts involving the left kidney. Carlo Bal Jr., MD Tibia/Fibula X-Ray 10/27/16 Signed Impressions: Service Date/Time: Thursday, October 27, 2016 11:38 - CONCLUSION: I see no unexpected radiopaque foreign bodies. Gennaro Mueller MD FACR Tibia/Fibula X-Ray 10/27/16 Signed Impressions: Service Date/Time: Thursday, October 27, 2016 07:51 - CONCLUSION: 1. Severely comminuted fractures involving the distal tibia 2. Fractures involving the proximal and distal fibula Austin Candelario MD Radius/Ulna X-Ray 10/27/16 Signed Impressions: Service Date/Time: Thursday, October 27, 2016 11:38 - CONCLUSION: There is no radiopaque retained surgical instruments. Gennaro Mueller MD FACR Maxillofacial CT 10/27/16 Signed Impressions: Service Date/Time: Thursday, October 27, 2016 08:16 - CONCLUSION: 1. Acute fractures involving the nasion and nasal septum. 2. Periorbital soft tissue hematoma on the left. 3. Chronic maxillary sinus disease on the right. Carlo Bal Jr., MD Lower Extremity CT 10/27/16 Signed Impressions: Service Date/Time: Thursday, October 27, 2016 08:30 - CONCLUSION: 1. Multiple fractures involving the right foot. 2. Joint dislocation between the tarsal navicular bone and the talus. The tarsonavicular bone is dislocated anteriorly. Austin Candelario MD Lower Extremity CT 10/27/16 Signed Impressions: Service Date/Time: Thursday, October 27, 2016 08:30 - CONCLUSION: 1. Distal tibia and fibula are grossly intact. Good alignment at the mortise joint. 2. Multiple severe fractures of the right foot which are described on the CT scan of the foot. Austin Candelario MD Lower Extremity CT 10/27/16 Signed Impressions: Service Date/Time: Thursday, October 27, 2016 08:30 - CONCLUSION: Severely comminuted fracture the distal tibia. Multiple fractures involving the left foot as above Austin Candelario MD Lower Extremity CT 10/27/16 Signed Impressions: Service Date/Time: Thursday, October 27, 2016 08:35 - CONCLUSION: Complex severely comminuted open fracture injuries of the left ankle and hindfoot as described. Jacobo Bragg MD Foot X-Ray 10/27/16 Signed Impressions: Service Date/Time: Thursday, October 27, 2016 11:13 - CONCLUSION: Status post pinning as above. Austin Candelario MD Foot X-Ray 10/27/16 Signed Impressions: Service Date/Time: Thursday, October 27, 2016 07:51 - CONCLUSION: Limited study with no definite bony fractures on this single view. Recommend complete study when patient is stable. Austin Candelario MD Aorta w/Runoff CTA 10/27/16 Signed Impressions: Service Date/Time: Thursday, October 27, 2016 08:30 - CONCLUSION: 1. Patent inflow and outflow bilaterally. 2. Right lower extremity has patency of the trifurcation vessels to the level of the ankle joint. I am able to see the dorsalis pedis artery within its most inferior extent. The posterior tibial artery seen patent to the level just below the medial malleolus. No extravasation to suggest hemorrhage. 3. Left lower extremity shows lack of visualization of the anterior tibial artery beginning just above the ankle joint. This may relate to spasm. I see no extravasation. The posterior tibial artery is patent to level just below the medial malleolus. Carlo Bal Jr., MD Ankle X-Ray 10/27/16 0000 Signed Impressions: Service Date/Time: Thursday, October 27, 2016 11:13 - CONCLUSION: Severely comminuted fractures predominantly involving the distal tibia Austin Candelario MD Ankle X-Ray 10/27/16 0000 Signed Impressions: Service Date/Time: Thursday, October 27, 2016 07:51 - CONCLUSION: Limited examination. Soft tissue swelling with subcutaneous emphysema along the lateral malleolus area. Distal tibia and fibula are grossly intact. Austin Candelario MD Objective Remarks LLE: dressings clean and dry. +exfix. +vac with good seal RLE: +short leg splint. able to flex/extend toes bilaterally +sensation LUE: dressings clean and dry. intact. NVI. + sling Assessment & Plan Assessment and Plan 1) Bilateral calcaneus fractures 2) Open left tibial pilon fx with exfix and wound vac and wound closure 3) Left Proximal Humerus Fx s/p ORIF - POD 4 -maintain exfix and pin care -maintain vac at all times: 100mmHg, low, 3:1 -maintain splint on right ankle at all times -will plan for OR Mon/Tu for I&D and vac change awaiting CT Ramone Dickinson Jr., MD Nov 04, 2016 09:50
[2016-11-04] MEDS: LACTATED RINGER'S 1000 ML INJ 1,000 ML IV SCH ×3 (10:00→23:51)
[2016-11-04] MEDS: SODIUM CHLORIDE 0.9% FLUSH 5 ML FLUSH IVF SCH ×2 (11:03→22:44)
[2016-11-04] MEDS: CALCIUM CARBONATE 500 MG CHEWABLE TAB CHEW SCH ×2 (11:09→22:44)
[2016-11-04] MEDS: ENOXAPARIN SODIUM 30 MG/0.3 ML SYRINGE SQ SCH ×2 (11:09→22:43)
[2016-11-04] MEDS: FAMOTIDINE 20 MG TAB PO SCH ×2 (11:11→22:43)
[2016-11-04] MEDS: GABAPENTIN 100 MG CAP PO SCH ×3 (11:11→17:41)
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
[2016-11-04] MEDS: HYDROmorphone HCL PF 1 MG/ML VIAL IV PUSH PRN (12:35)
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
[2016-11-04] MEDS: MAGNESIUM HYDROXIDE SUSP 30 ML CUP PO SCH (22:44)
[2016-11-05 00:34] VITALS: BP 120/71; PULSE 70; RESP 18; TEMP 96.7; O2SAT 94
[2016-11-05] MEDS: ACETAMINOPHEN 325 MG TAB PO SCH ×4 (02:00→17:28)
[2016-11-05] MEDS: ceFAZolin 2 GM PREMIX 50 ML IV SCH ×3 (06:00→21:08)
[2016-11-05] MEDS: HYDROmorphone HCL PF 1 MG/ML VIAL IV PUSH PRN (06:01)
[2016-11-05] MEDS: LACTATED RINGER'S 1000 ML IV SCH (06:02)
[2016-11-05] MEDS: oxyCODONE HCL ORAL CONC 20 MG/ML SYRINGE PO PRN (06:56)
[2016-11-05] MEDS: ACETAMINOPHEN 1000 MG/100 ML VIAL IV SCH ×3 (07:20→21:08)
[2016-11-05] MEDS: GABAPENTIN 100 MG CAP PO SCH ×3 (07:20→17:28)
[2016-11-05 08:00] VITALS: BP 130/65; PULSE 67; RESP 16; TEMP 96.9; O2SAT 97
[2016-11-05] MEDS: LACTULOSE SYRUP 20 GM/30 ML CUP PO SCH (08:31)
[2016-11-05] MEDS: SODIUM CHLORIDE 0.9% FLUSH 5 ML FLUSH IVF SCH ×2 (08:31→21:00)
[2016-11-05] MEDS: DOCUSATE SODIUM 50 MG/SENNA 8.6 MG TAB PO SCH ×2 (08:31→21:00)
[2016-11-05] MEDS: BACITRACIN TOP OINT 15 GM TUBE TOP SCH ×2 (10:15→21:11)
[2016-11-05] MEDS: FAMOTIDINE 20 MG TAB PO SCH ×2 (10:15→21:13)
[2016-11-05] MEDS: ENOXAPARIN SODIUM 30 MG/0.3 ML SYRINGE SQ SCH ×2 (10:15→21:13)
[2016-11-05] MEDS: CALCIUM CARBONATE 500 MG CHEWABLE TAB CHEW SCH ×2 (10:15→21:14)
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
[2016-11-05 12:00] VITALS: BP 128/58; PULSE 91; RESP 16; TEMP 96.7; O2SAT 96
[2016-11-05 16:00] VITALS: BP 137/52; PULSE 89; RESP 16; TEMP 96.6; O2SAT 96
[2016-11-05] MEDS: LACTATED RINGER'S 1000 ML INJ 1,000 ML IV SCH (16:00)
[2016-11-05 20:00] VITALS: BP 115/57; PULSE 88; RESP 20; TEMP 98; O2SAT 96
[2016-11-05] MEDS: MAGNESIUM HYDROXIDE SUSP 30 ML CUP PO SCH (21:00)
[2016-11-06] VITALS: BP 128/67; PULSE 79; RESP 18; TEMP 98; O2SAT 94
[2016-11-06] MEDS: LACTATED RINGER'S 1000 ML INJ 1,000 ML IV SCH (02:00)
[2016-11-06] MEDS: ACETAMINOPHEN 325 MG TAB PO SCH ×4 (02:00→20:30)
[2016-11-06] MEDS: ACETAMINOPHEN 1000 MG/100 ML VIAL IV SCH (05:47)
[2016-11-06] MEDS: ceFAZolin 2 GM PREMIX 50 ML IV SCH ×2 (05:47→15:59)
[2016-11-06 07:52] LABS: AUTOMATED NEUTROPHIL # 6.8 TH/MM3 (1.8-7.7); BASOPHIL # 0.1 TH/MM3 (0-0.2); BASOPHIL % 0.6 % (0.0-2.0); EOSINOPHIL # 0.3 TH/MM3 (0-0.4); EOSINOPHIL % 3.1 % (0.0-4.0); HEMATOCRIT 26.6 % (39.0-51.0); LYMPH % 14.2 % (9.0-44.0); LYMPHOCYTE # 1.3 TH/MM3 (1.0-4.8); MEAN CELL VOLUME 86.1 FL (80.0-100.0); MEAN CORPUSCULAR HEMOGLOBIN 29.3 PG (27.0-34.0); MEAN CORPUSCULAR HGB CONC 34.1 % (32.0-36.0); MONO % 9.7 % (0.0-8.0); NEUT % 72.4 % (16.0-70.0); PLATELET COUNT 428 TH/MM3 (150-450); RED BLOOD COUNT 3.09 MIL/MM3 (4.50-5.90); RED CELL DISTRIBUTION WIDTH 16.1 % (11.6-17.2); WHITE BLOOD COUNT 9.4 TH/MM3 (4.0-11.0)
[2016-11-06 07:57] LABS: HEMO FLAGS AUTO DIFF
[2016-11-06 08:00] VITALS: BP 140/63; PULSE 74; RESP 18; TEMP 98; O2SAT 94
[2016-11-06 08:21] LABS: ALKALINE PHOSPHATASE 261 U/L (45-117); ALT (GPT) 61 U/L (12-78); ANION GAP 10 MEQ/L (5-15); AST (GOT) 74 U/L (15-37); BICARBONATE 24.4 MEQ/L (21.0-32.0); BLOOD UREA NITROGEN 17 MG/DL (7-18); CHLORIDE 103 MEQ/L (98-107); GLOMERULAR FILTRATION RATE 68 ML/MIN (>89); MAGNESIUM 2.1 MG/DL (1.5-2.5); SODIUM (NA) 137 MEQ/L (136-145); TOTAL BILIRUBIN ADULT 1.1 MG/DL (0.2-1.0)
[2016-11-06 08:36] LABS: BANDS 1 % (0-6); EOSINOPHILS 4 % (0-4); METAMYELOCYTES 1 % (0-1); MYELOCYTES 1 % (0-0); NEUTROPHIL # MANUAL DIFF 7.4 TH/MM3 (1.8-7.7); PLASMA CELLS 1 % (0-0); POLYS (SEG NEUTROPHILS) 76 % (16-70); WBC DIFF SAMPLE 100
[2016-11-06 08:38] LABS: HELMET CELLS OCC (NORMAL); PLATELET ESTIMATE SMEAR NORMAL (NORMAL); PLATELET MORPHOLOGY NORMAL (NORMAL); SCAN/DIFF FINAL DIFF MANUAL
--- NOTE | 2016-11-06 08:54 | PD.ORT.PN ---
Subjective Subjective Remarks Pain control, no new complaints Objective Vitals Vital Signs Date Time Temp Pulse Resp B/P Pulse Ox O2 Delivery O2 Flow Rate FiO2 11/06/16 08:00 98.0 74 18 140/63 94 11/06/16 00:00 98.0 79 18 128/67 94 11/05/16 20:00 98.0 88 20 115/57 96 11/05/16 19:00 96 Room Air 21 11/05/16 19:00 96 Room Air 21 11/05/16 16:00 96.6 89 16 137/52 96 11/05/16 12:00 96.7 91 16 128/58 96 I/O 11/05/16 11/05/16 11/05/16 11/06/16 11/06/16 11/06/16 07:00 15:00 23:00 07:00 15:00 23:00 Intake Total 1120 ml 0 ml Output Total 700 ml 2150 ml 1450 ml Balance -700 ml -1030 ml -1450 ml Intake Oral 1120 ml 0 ml Output Urine Total 700 ml 2150 ml 1450 ml # Bowel Movements 1 0 0 Result Diagram: 11/06/16 0651 11/06/16 0651 Imaging Last 24 hours Impressions Thoracic Spine CT 10/27/16812 Signed Impressions: Service Date/Time: Thursday, October 27, 2016 08:22 - CONCLUSION: Negative CT scan of the thoracic spine for acute traumatic injury. Gennaro Mueller MD FACR Pelvis X-Ray 10/27/16812 Signed Impressions: Service Date/Time: Thursday, October 27, 2016 07:51 - CONCLUSION: No definite bony fracture or joint dislocation. Austin Candelario MD Lumbar Spine CT 10/27/16812 Signed Impressions: Service Date/Time: Thursday, October 27, 2016 08:21 - CONCLUSION: 1. Mild nondisplaced facture involving the anterior superior endplate of L3. 2. Primary bony degenerative changes of the lumbar spine. 3. Mild diffuse broad-based bulging L4-5 4. Bilateral facet arthritis. Austin Candelario MD Head CT 10/27/16812 Signed Impressions: Service Date/Time: Thursday, October 27, 2016 08:16 - CONCLUSION: No acute intracranial hemorrhage. Austin Candelario MD Chest X-Ray 10/27/16812 Signed Impressions: Service Date/Time: Thursday, October 27, 2016 07:51 - CONCLUSION: No definite acute pulmonary infiltrates. CT thorax to follow. Austin Candelario MD Chest CT 10/27/16812 Signed Impressions: Service Date/Time: Thursday, October 27, 2016 08:21 - CONCLUSION: 1. Acute left proximal humeral fracture. 2. No acute intrathoracic abnormality. 3. 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 Carlo Bal Jr., MD Cervical Spine CT 10/27/16812 Signed Impressions: Service Date/Time: Thursday, October 27, 2016 08:18 - CONCLUSION: 1. No fracture or dislocation. 2. Degenerative changes at C6-C7. Carlo Bal Jr., MD Abdomen/Pelvis CT 10/27/16812 Signed Impressions: Service Date/Time: Thursday, October 27, 2016 08:21 - CONCLUSION: 1. No acute abnormality. 2. Small peripelvic cysts involving the left kidney. Cralo Bal Jr., MD Tibia/Fibula X-Ray 10/27/16 Signed Impressions: Service Date/Time: Thursday, October 27, 2016 11:38 - CONCLUSION: I see no unexpected radiopaque foreign bodies. Gennaro Mueller MD FACR Tibia/Fibula X-Ray 10/27/16 Signed Impressions: Service Date/Time: Thursday, October 27, 2016 07:51 - CONCLUSION: 1. Severely comminuted fractures involving the distal tibia 2. Fractures involving the proximal and distal fibula Austin Candelario MD Radius/Ulna X-Ray 10/27/16 Signed Impressions: Service Date/Time: Thursday, October 27, 2016 11:38 - CONCLUSION: There is no radiopaque retained surgical instruments. Gennaro Mueller MD FACR Maxillofacial CT 10/27/16 Signed Impressions: Service Date/Time: Thursday, October 27, 2016 08:16 - CONCLUSION: 1. Acute fractures involving the nasion and nasal septum. 2. Periorbital soft tissue hematoma on the left. 3. Chronic maxillary sinus disease on the right. Carlo Bal Jr., MD Lower Extremity CT 10/27/16 Signed Impressions: Service Date/Time: Thursday, October 27, 2016 08:30 - CONCLUSION: 1. Multiple fractures involving the right foot. 2. Joint dislocation between the tarsal navicular bone and the talus. The tarsonavicular bone is dislocated anteriorly. Austin Candelario MD Lower Extremity CT 10/27/16 0000 Signed Impressions: Service Date/Time: Thursday, October 27, 2016 08:30 - CONCLUSION: 1. Distal tibia and fibula are grossly intact. Good alignment at the mortise joint. 2. Multiple severe fractures of the right foot which are described on the CT scan of the foot. Austin Candelario MD Lower Extremity CT 10/27/16 0000 Signed Impressions: Service Date/Time: Thursday, October 27, 2016 08:30 - CONCLUSION: Severely comminuted fracture the distal tibia. Multiple fractures involving the left foot as above Austin Candelario MD Lower Extremity CT 10/27/16 0000 Signed Impressions: Service Date/Time: Thursday, October 27, 2016 08:35 - CONCLUSION: Complex severely comminuted open fracture injuries of the left ankle and hindfoot as described. Jacobo Bragg MD Foot X-Ray 10/27/16 0000 Signed Impressions: Service Date/Time: Thursday, October 27, 2016 11:13 - CONCLUSION: Status post pinning as above. Austin Candelario MD Foot X-Ray 10/27/16 0000 Signed Impressions: Service Date/Time: Thursday, October 27, 2016 07:51 - CONCLUSION: Limited study with no definite bony fractures on this single view. Recommend complete study when patient is stable. Austin Candelario MD Aorta w/Runoff CTA 10/27/16 0000 Signed Impressions: Service Date/Time: Thursday, October 27, 2016 08:30 - CONCLUSION: 1. Patent inflow and outflow bilaterally. 2. Right lower extremity has patency of the trifurcation vessels to the level of the ankle joint. I am able to see the dorsalis pedis artery within its most inferior extent. The posterior tibial artery seen patent to the level just below the medial malleolus. No extravasation to suggest hemorrhage. 3. Left lower extremity shows lack of visualization of the anterior tibial artery beginning just above the ankle joint. This may relate to spasm. I see no extravasation. The posterior tibial artery is patent to level just below the medial malleolus. Carlo Bal Jr., MD Ankle X-Ray 10/27/16 0000 Signed Impressions: Service Date/Time: Thursday, October 27, 2016 11:13 - CONCLUSION: Severely comminuted fractures predominantly involving the distal tibia Austin Candelario MD Ankle X-Ray 10/27/16 0000 Signed Impressions: Service Date/Time: Thursday, October 27, 2016 07:51 - CONCLUSION: Limited examination. Soft tissue swelling with subcutaneous emphysema along the lateral malleolus area. Distal tibia and fibula are grossly intact. Austin Candelario MD Objective Remarks LLE: dressings clean and dry. +exfix. +vac with good seal RLE: +short leg splint. able to flex/extend toes bilaterally +sensation LUE: dressings clean and dry. intact. NVI. + sling Assessment & Plan Assessment and Plan 1) Bilateral calcaneus fractures 2) Open left tibial pilon fx with exfix and wound vac and wound closure 3) Left Proximal Humerus Fx s/p ORIF - POD 5 -maintain exfix and pin care -maintain vac at all times: 100mmHg, low, 3:1 -maintain splint on right ankle at all times -will plan for OR Tues for I&D and vac change, possible ORIF right foot Hold Lovenox Nothing by mouth after midnight BEN ANTONY PA-C Nov 06, 2016 08:54
[2016-11-06] MEDS: DOCUSATE SODIUM 50 MG/SENNA 8.6 MG TAB PO SCH ×2 (09:27→20:30)
[2016-11-06] MEDS: CALCIUM CARBONATE 500 MG CHEWABLE TAB CHEW SCH ×2 (09:27→20:30)
[2016-11-06] MEDS: GABAPENTIN 100 MG CAP PO SCH ×3 (09:27→17:38)
[2016-11-06] MEDS: FAMOTIDINE 20 MG TAB PO SCH ×2 (09:27→20:30)
[2016-11-06] MEDS: BACITRACIN TOP OINT 15 GM TUBE TOP SCH ×2 (09:28→20:30)
[2016-11-06] MEDS: LACTULOSE SYRUP 20 GM/30 ML CUP PO SCH (09:28)
[2016-11-06] MEDS: SODIUM CHLORIDE 0.9% FLUSH 5 ML FLUSH IVF SCH ×2 (09:29→20:30)
[2016-11-06] MEDS: LACTATED RINGER'S 1000 ML IV SCH (09:30)
[2016-11-06 12:00] VITALS: BP 120/61; PULSE 87; RESP 18; TEMP 98.4; O2SAT 95
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
[2016-11-06 16:00] VITALS: BP 134/56; PULSE 87; RESP 18; TEMP 97.5; O2SAT 96
[2016-11-06 20:00] VITALS: BP 118/66; PULSE 97; RESP 17; TEMP 98.8
[2016-11-06] MEDS: MAGNESIUM HYDROXIDE SUSP 30 ML CUP PO SCH (20:30)
[2016-11-06] MEDS ORDERED: LACTATED RINGER'S 1000 ML IV SCH (23:45)
[2016-11-06] MEDS ORDERED: SODIUM CHLORID 0.9% 500 ML IV SCH (23:45)
[2016-11-06] MEDS ORDERED: INSULIN HUMAN REGULAR 1,000 UNITS/10 ML VIAL SQ PRN (23:45)
[2016-11-06] MEDS ORDERED: METOPROLOL TARTRATE 25 MG TAB PO PRN (23:45)
[2016-11-07] VITALS (7 sets, daily range): BP systolic 112–133; BP diastolic 54–73; PULSE 59–84; RESP 15–18; TEMP 96.8–99.1; O2SAT 94–100
[2016-11-07] MEDS: ACETAMINOPHEN 325 MG TAB PO SCH ×4 (01:56→19:55)
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
[2016-11-07] MEDS: GABAPENTIN 100 MG CAP PO SCH ×3 (08:52→17:39)
[2016-11-07] MEDS: FAMOTIDINE 20 MG TAB PO SCH ×2 (08:54→19:55)
[2016-11-07] MEDS: LACTULOSE SYRUP 20 GM/30 ML CUP PO SCH (08:54)
[2016-11-07] MEDS: CALCIUM CARBONATE 500 MG CHEWABLE TAB CHEW SCH ×2 (08:55→19:55)
[2016-11-07] MEDS: DOCUSATE SODIUM 50 MG/SENNA 8.6 MG TAB PO SCH ×2 (08:55→19:54)
[2016-11-07] MEDS: SODIUM CHLORIDE 0.9% FLUSH 5 ML FLUSH IVF SCH ×2 (08:57→19:55)
[2016-11-07] MEDS: BACITRACIN TOP OINT 15 GM TUBE TOP SCH ×2 (09:00→19:55)
[2016-11-07] MEDS ORDERED: SODIUM CHLOR 0.9% 250 ML INJ 250 ML ONE (11:24)
[2016-11-07] MEDS ORDERED: ceFAZolin 2 GM PREMIX 50 ML ONE (11:24)
[2016-11-07] MEDS ORDERED: MIDAZOLAM HCL 2 MG/2 ML VIAL ONE ×2 (11:30→13:33)
[2016-11-07] MEDS ORDERED: FAMOTIDINE 20 MG/2 ML VIAL ONE (11:30)
[2016-11-07] MEDS ORDERED: ACETAMINOPHEN 1000 MG/100 ML VIAL IV ONE (11:30)
[2016-11-07] MEDS ORDERED: fentaNYL CITRATE 250 MCG/5 ML AMP ONE ×2 (11:31→13:34)
[2016-11-07] MEDS ORDERED: DEXAMETHASONE SOD PHOS 4 MG/ML VIAL ONE (11:31)
[2016-11-07] MEDS: GENTAMICIN SULFATE 80 MG/2 ML VIAL ONE ×2 (11:47→12:08)
[2016-11-07] MEDS: VANCOMYCIN HCL 1000 MG VIAL ONE ×2 (11:48→11:52)
[2016-11-07] MEDS ORDERED: BACITRACIN TOP OINT 15 GM TUBE TOP ONE (12:58)
[2016-11-07] MEDS ORDERED: PHENYLEPH/NS 1000 MCG/10 ML SYR IV ONE (13:01)
[2016-11-07] MEDS ORDERED: ONDANSETRON HCL 4 MG/2 ML VIAL IV PUSH ONE (13:01)
[2016-11-07] MEDS ORDERED: PROPOFOL 200 MG/20 ML AMP IV ONE (13:01)
[2016-11-07] MEDS ORDERED: NEOSTIGMINE 3 MG/3 ML SYR IV ONE (13:01)
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
[2016-11-07] MEDS ORDERED: DO NOT ADM ANY ANTICOAGULANT DRUGS XX PRN (13:23)
--- NOTE | 2016-11-07 13:40 | RADRPT ---
EXAM DATE/TIME: 11/07/2016 12:38 [facility] COMPARISON: No previous studies available for comparison. INDICATIONS : Post-op ORIF right foot fracture. MEDICAL HISTORY : None. SURGICAL HISTORY : None. ENCOUNTER: Subsequent ACUITY: 4 - 6 days PAIN SCORE: Non-responsive. LOCATION: Right foot. CONCLUSION: Fluoroscopic images during placement of screws through the navicular bone. There are also pins throug h the talonavicular bones.Extensive fractures seen involving the hindfoot including the ccalcaneus. Jayme Marquez MD on November 07, 2016 at 13:34 Board Certified Radiologist. This report was verified electronically.
[2016-11-07] MEDS ORDERED: *morphine SULFATE 8 MG/ML PERIprocedure ONLY ONE ×3 (13:46→14:08)
[2016-11-07] MEDS ORDERED: *MEPERIDINE 25 MG INJ VIAL PERIprocedural Use ONLY ONE (14:10)
[2016-11-07] MEDS: LACTATED RINGER'S 1000 ML INJ 1,000 ML IV SCH ×2 (17:41→23:00)
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
[2016-11-07] MEDS: ceFAZolin 2 GM PREMIX 50 ML IV SCH (19:54)
[2016-11-07] MEDS: MAGNESIUM HYDROXIDE SUSP 30 ML CUP PO SCH (19:55)
[2016-11-07] MEDS ORDERED: ceFAZolin 2 GM PREMIX 50 ML IV SCH (20:00)
[2016-11-07] MEDS: oxyCODONE HCL ORAL CONC 20 MG/ML SYRINGE PO PRN (23:29)
[2016-11-08] VITALS (8 sets, daily range): BP systolic 108–121; BP diastolic 55–69; PULSE 73–91; RESP 16–17; TEMP 96.3–98.8; O2SAT 96–99
[2016-11-08] MEDS: ACETAMINOPHEN 325 MG TAB PO SCH ×4 (02:00→20:57)
[2016-11-08] MEDS: ceFAZolin 2 GM PREMIX 50 ML IV SCH ×3 (03:55→20:58)
[2016-11-08] MEDS: oxyCODONE HCL ORAL CONC 20 MG/ML SYRINGE PO PRN ×4 (06:26→18:50)
[2016-11-08 06:49] LABS: BASOPHIL # 0.1 TH/MM3 (0-0.2); BASOPHIL % 0.5 % (0.0-2.0); EOSINOPHIL # 0.2 TH/MM3 (0-0.4); EOSINOPHIL % 1.2 % (0.0-4.0); HEMATOCRIT 29.9 % (39.0-51.0); LYMPH % 14.7 % (9.0-44.0); MEAN CELL VOLUME 87.7 FL (80.0-100.0); MEAN CORPUSCULAR HEMOGLOBIN 28.9 PG (27.0-34.0); MONO % 8.7 % (0.0-8.0); NEUT % 74.9 % (16.0-70.0); PLATELET COUNT 538 TH/MM3 (150-450); RED BLOOD COUNT 3.41 MIL/MM3 (4.50-5.90); RED CELL DISTRIBUTION WIDTH 16.4 % (11.6-17.2); WHITE BLOOD COUNT 13.3 TH/MM3 (4.0-11.0)
[2016-11-08 06:58] LABS: HEMO FLAGS AUTO DIFF
[2016-11-08 07:17] LABS: BICARBONATE 25.4 MEQ/L (21.0-32.0); POTASSIUM 4.4 MEQ/L (3.5-5.1)
[2016-11-08 08:17] LABS: BANDS 5 % (0-6); EOSINOPHILS 3 % (0-4); METAMYELOCYTES 1 % (0-1); MYELOCYTES 2 % (0-0); NEUTROPHIL # MANUAL DIFF 11.7 TH/MM3 (1.8-7.7); PLATELET ESTIMATE SMEAR HIGH (NORMAL); PLATELET MORPHOLOGY NORMAL (NORMAL); POLYS (SEG NEUTROPHILS) 80 % (16-70); SCAN/DIFF FINAL DIFF MANUAL; WBC DIFF SAMPLE 100
[2016-11-08] MEDS: LACTULOSE SYRUP 20 GM/30 ML CUP PO SCH (08:21)
[2016-11-08] MEDS: DOCUSATE SODIUM 50 MG/SENNA 8.6 MG TAB PO SCH ×2 (08:21→20:55)
[2016-11-08] MEDS: CALCIUM CARBONATE 500 MG CHEWABLE TAB CHEW SCH ×2 (08:21→20:55)
[2016-11-08] MEDS: FAMOTIDINE 20 MG TAB PO SCH ×2 (08:21→20:55)
[2016-11-08] MEDS: GABAPENTIN 100 MG CAP PO SCH ×3 (08:21→18:00)
[2016-11-08] MEDS: SODIUM CHLORIDE 0.9% FLUSH 5 ML FLUSH IVF SCH ×2 (09:00→20:58)
[2016-11-08] MEDS: BACITRACIN TOP OINT 15 GM TUBE TOP SCH ×2 (09:00→21:00)
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
[2016-11-08] MEDS: ENOXAPARIN SODIUM 30 MG/0.3 ML SYRINGE SQ SCH (12:19)
[2016-11-08] MEDS: LACTATED RINGER'S 1000 ML INJ 1,000 ML IV SCH (19:00)
[2016-11-08] MEDS: MAGNESIUM HYDROXIDE SUSP 30 ML CUP PO SCH (20:57)
[2016-11-09 00:35] VITALS: BP 121/64; PULSE 76; RESP 17; TEMP 97.1; O2SAT 94
[2016-11-09] MEDS: ENOXAPARIN SODIUM 30 MG/0.3 ML SYRINGE SQ SCH ×3 (01:10→23:38)
[2016-11-09] MEDS: ACETAMINOPHEN 325 MG TAB PO SCH ×4 (01:58→20:00)
[2016-11-09] MEDS: ceFAZolin 2 GM PREMIX 50 ML IV SCH ×2 (03:22→12:28)
[2016-11-09] MEDS: LACTATED RINGER'S 1000 ML INJ 1,000 ML IV SCH ×3 (03:28→23:39)
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
[2016-11-09 08:08] VITALS: BP 130/59; PULSE 88; RESP 17; TEMP 97.7; O2SAT 96
[2016-11-09] MEDS: LACTULOSE SYRUP 20 GM/30 ML CUP PO SCH (08:54)
[2016-11-09] MEDS: SODIUM CHLORIDE 0.9% FLUSH 5 ML FLUSH IVF SCH ×2 (08:55→21:17)
[2016-11-09] MEDS: GABAPENTIN 100 MG CAP PO SCH ×3 (08:58→18:27)
[2016-11-09] MEDS: FAMOTIDINE 20 MG TAB PO SCH ×2 (08:59→21:17)
[2016-11-09] MEDS: DOCUSATE SODIUM 50 MG/SENNA 8.6 MG TAB PO SCH ×2 (09:00→21:17)
[2016-11-09] MEDS: BACITRACIN TOP OINT 15 GM TUBE TOP SCH ×2 (09:00→21:00)
[2016-11-09] MEDS: CALCIUM CARBONATE 500 MG CHEWABLE TAB CHEW SCH ×2 (09:01→21:17)
[2016-11-09 10:39] VITALS: O2SAT 97
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
[2016-11-09 12:40] VITALS: BP 136/60; PULSE 86; RESP 16; TEMP 97.6; O2SAT 96
[2016-11-09 16:50] VITALS: BP 126/64; PULSE 94; RESP 16; TEMP 98.8; O2SAT 96
[2016-11-09 19:59] VITALS: BP 127/58; PULSE 95; RESP 17; TEMP 97.6; O2SAT 97
[2016-11-09] MEDS: MAGNESIUM HYDROXIDE SUSP 30 ML CUP PO SCH (21:17)
[2016-11-10] VITALS (7 sets, daily range): BP systolic 109–126; BP diastolic 55–96; PULSE 84–95; RESP 16–18; TEMP 95.6–97.9; O2SAT 95–98
[2016-11-10] MEDS: ACETAMINOPHEN 325 MG TAB PO SCH ×4 (02:16→20:00)
[2016-11-10 05:00] LABS: HEMATOCRIT 32.7 % (39.0-51.0); MEAN CELL VOLUME 86.2 FL (80.0-100.0); MEAN CORPUSCULAR HEMOGLOBIN 29.4 PG (27.0-34.0); MEAN CORPUSCULAR HGB CONC 34.1 % (32.0-36.0); PLATELET COUNT 626 TH/MM3 (150-450); RED BLOOD COUNT 3.79 MIL/MM3 (4.50-5.90); RED CELL DISTRIBUTION WIDTH 16.4 % (11.6-17.2); REVIEW FLAG FINAL; WHITE BLOOD COUNT 11.3 TH/MM3 (4.0-11.0)
[2016-11-10] MEDS ORDERED: INSULIN HUMAN REGULAR 1,000 UNITS/10 ML VIAL SQ PRN (05:00)
[2016-11-10] MEDS ORDERED: SODIUM CHLORID 0.9% 500 ML IV SCH (05:00)
[2016-11-10] MEDS ORDERED: LACTATED RINGER'S 1000 ML IV SCH (05:00)
[2016-11-10 05:45] LABS: BICARBONATE 25.7 MEQ/L (21.0-32.0); MAGNESIUM 2.4 MG/DL (1.5-2.5); POTASSIUM 4.6 MEQ/L (3.5-5.1)
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
[2016-11-10] MEDS: BACITRACIN TOP OINT 15 GM TUBE TOP SCH ×2 (09:00→20:00)
[2016-11-10] MEDS: LACTULOSE SYRUP 20 GM/30 ML CUP PO SCH (09:03)
[2016-11-10] MEDS: SODIUM CHLORIDE 0.9% FLUSH 5 ML FLUSH IVF SCH ×2 (09:04→20:00)
[2016-11-10] MEDS: FAMOTIDINE 20 MG TAB PO SCH ×2 (09:04→20:00)
[2016-11-10] MEDS: GABAPENTIN 100 MG CAP PO SCH ×3 (09:04→20:00)
[2016-11-10] MEDS: DOCUSATE SODIUM 50 MG/SENNA 8.6 MG TAB PO SCH ×2 (09:04→20:00)
[2016-11-10] MEDS: CALCIUM CARBONATE 500 MG CHEWABLE TAB CHEW SCH ×2 (09:04→20:00)
[2016-11-10] MEDS: LACTATED RINGER'S 1000 ML INJ 1,000 ML IV SCH (11:00)
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
[2016-11-10] MEDS: ENOXAPARIN SODIUM 30 MG/0.3 ML SYRINGE SQ SCH ×2 (13:04→23:36)
[2016-11-10] MEDS: MAGNESIUM HYDROXIDE SUSP 30 ML CUP PO SCH (20:00)
[2016-11-11] VITALS: BP 101/55; PULSE 87; RESP 20; TEMP 96.4; O2SAT 94
[2016-11-11] MEDS: ACETAMINOPHEN 325 MG TAB PO SCH ×4 (01:43→19:24)
[2016-11-11 08:00] VITALS: BP 139/68; PULSE 75; RESP 18; TEMP 96.5; O2SAT 97
[2016-11-11] MEDS: LACTULOSE SYRUP 20 GM/30 ML CUP PO SCH (08:19)
[2016-11-11] MEDS: GABAPENTIN 100 MG CAP PO SCH ×3 (08:20→17:36)
[2016-11-11] MEDS: SODIUM CHLORIDE 0.9% FLUSH 5 ML FLUSH IVF SCH ×2 (08:20→19:27)
[2016-11-11] MEDS: DOCUSATE SODIUM 50 MG/SENNA 8.6 MG TAB PO SCH ×2 (08:20→19:27)
[2016-11-11] MEDS: CALCIUM CARBONATE 500 MG CHEWABLE TAB CHEW SCH ×2 (08:20→19:24)
[2016-11-11] MEDS: FAMOTIDINE 20 MG TAB PO SCH ×2 (08:20→19:24)
[2016-11-11] MEDS: BACITRACIN TOP OINT 15 GM TUBE TOP SCH ×2 (08:21→19:27)
[2016-11-11 10:10] VITALS: O2SAT 96
[2016-11-11 12:00] VITALS: BP 121/58; PULSE 84; RESP 18; TEMP 96.3; O2SAT 96
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
[2016-11-11] MEDS: ENOXAPARIN SODIUM 30 MG/0.3 ML SYRINGE SQ SCH ×2 (12:59→23:40)
[2016-11-11 16:00] VITALS: BP 112/58; PULSE 93; RESP 18; TEMP 97.8; O2SAT 96
[2016-11-11] MEDS: MAGNESIUM HYDROXIDE SUSP 30 ML CUP PO SCH (19:26)
[2016-11-11 20:00] VITALS: BP 122/59; PULSE 92; RESP 18; TEMP 96.9; O2SAT 95
[2016-11-12] VITALS: BP 127/60; PULSE 85; RESP 22; TEMP 96.9; O2SAT 94
[2016-11-12] MEDS: ACETAMINOPHEN 325 MG TAB PO SCH ×4 (00:51→19:20)
[2016-11-12] MEDS: FAMOTIDINE 20 MG TAB PO SCH ×2 (07:49→19:20)
[2016-11-12] MEDS: DOCUSATE SODIUM 50 MG/SENNA 8.6 MG TAB PO SCH ×2 (07:49→19:20)
[2016-11-12] MEDS: CALCIUM CARBONATE 500 MG CHEWABLE TAB CHEW SCH ×2 (07:49→19:20)
[2016-11-12] MEDS: LACTULOSE SYRUP 20 GM/30 ML CUP PO SCH (07:49)
[2016-11-12] MEDS: GABAPENTIN 100 MG CAP PO SCH ×3 (07:49→17:12)
[2016-11-12] MEDS: SODIUM CHLORIDE 0.9% FLUSH 5 ML FLUSH IVF SCH ×2 (07:50→19:20)
[2016-11-12 08:00] VITALS: BP 120/61; PULSE 81; RESP 18; TEMP 96.8; O2SAT 95
[2016-11-12] MEDS: BACITRACIN TOP OINT 15 GM TUBE TOP SCH ×2 (08:23→19:21)
[2016-11-12 08:55] VITALS: O2SAT 96
[2016-11-12 12:00] VITALS: BP 126/61; PULSE 86; RESP 18; TEMP 98.3; O2SAT 96
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
[2016-11-12 16:00] VITALS: BP 116/63; PULSE 61; RESP 18; TEMP 97; O2SAT 96
[2016-11-12] MEDS: MAGNESIUM HYDROXIDE SUSP 30 ML CUP PO SCH (19:20)
[2016-11-12 20:55] VITALS: BP 128/57; PULSE 91; RESP 17; TEMP 97.3; O2SAT 96
[2016-11-13] MEDS: ACETAMINOPHEN 325 MG TAB PO SCH ×5 (00:12→21:54)
[2016-11-13 00:15] VITALS: BP 135/60; PULSE 82; RESP 17; TEMP 98.1; O2SAT 96
[2016-11-13 06:15] LABS: HEMATOCRIT 32.9 % (39.0-51.0); MEAN CELL VOLUME 86.8 FL (80.0-100.0); MEAN CORPUSCULAR HEMOGLOBIN 29.6 PG (27.0-34.0); MEAN CORPUSCULAR HGB CONC 34.1 % (32.0-36.0); PLATELET COUNT 577 TH/MM3 (150-450); RED BLOOD COUNT 3.79 MIL/MM3 (4.50-5.90); RED CELL DISTRIBUTION WIDTH 16.2 % (11.6-17.2); REVIEW FLAG FINAL; WHITE BLOOD COUNT 8.2 TH/MM3 (4.0-11.0)
--- NOTE | 2016-11-13 07:25 | PD.ORT.PN ---
Subjective Subjective Remarks Pain control, no new complaints Objective Vitals Vital Signs Date Time Temp Pulse Resp B/P Pulse Ox O2 Delivery O2 Flow Rate FiO2 11/13/16 00:15 98.1 82 17 135/60 96 11/12/16 20:55 97.3 91 17 128/57 96 11/12/16 16:00 97.0 61 18 116/63 96 11/12/16 12:00 98.3 86 18 126/61 96 11/12/16 08:55 96 21 11/12/16 08:00 96.8 81 18 120/61 95 11/12/16 07:45 Room Air I/O 11/12/16 11/12/16 11/12/16 11/13/16 11/13/16 11/13/16 07:00 15:00 23:00 07:00 15:00 23:00 Intake Total 240 ml 960 ml 960 ml Output Total 300 ml 650 ml Balance -60 ml 960 ml 310 ml Intake Oral 240 ml 960 ml 960 ml Output Urine Total 300 ml 650 ml # Voids 4 # Bowel Movements 0 1 0 Result Diagram: 11/13/16 0544 11/10/16 0453 Imaging Last 24 hours Impressions Thoracic Spine CT 10/27/16812 Signed Impressions: Service Date/Time: Thursday, October 27, 2016 08:22 - CONCLUSION: Negative CT scan of the thoracic spine for acute traumatic injury. Gennaro Mueller MD FACR Pelvis X-Ray 10/27/16812 Signed Impressions: Service Date/Time: Thursday, October 27, 2016 07:51 - CONCLUSION: No definite bony fracture or joint dislocation. Austin Candelario MD Lumbar Spine CT 10/27/16812 Signed Impressions: Service Date/Time: Thursday, October 27, 2016 08:21 - CONCLUSION: 1. Mild nondisplaced facture involving the anterior superior endplate of L3. 2. Primary bony degenerative changes of the lumbar spine. 3. Mild diffuse broad-based bulging L4-5 4. Bilateral facet arthritis. Austin Candelario MD Head CT 10/27/16812 Signed Impressions: Service Date/Time: Thursday, October 27, 2016 08:16 - CONCLUSION: No acute intracranial hemorrhage. Austin Candelario MD Chest X-Ray 10/27/16812 Signed Impressions: Service Date/Time: Thursday, October 27, 2016 07:51 - CONCLUSION: No definite acute pulmonary infiltrates. CT thorax to follow. Austin Candelario MD Chest CT 10/27/16812 Signed Impressions: Service Date/Time: Thursday, October 27, 2016 08:21 - CONCLUSION: 1. Acute left proximal humeral fracture. 2. No acute intrathoracic abnormality. 3. 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 Carlo Bal Jr., MD Cervical Spine CT 10/27/16812 Signed Impressions: Service Date/Time: Thursday, October 27, 2016 08:18 - CONCLUSION: 1. No fracture or dislocation. 2. Degenerative changes at C6-C7. Carlo Bal Jr., MD Abdomen/Pelvis CT 10/27/16812 Signed Impressions: Service Date/Time: Thursday, October 27, 2016 08:21 - CONCLUSION: 1. No acute abnormality. 2. Small peripelvic cysts involving the left kidney. Carlo Bal Jr., MD Tibia/Fibula X-Ray 10/27/16 Signed Impressions: Service Date/Time: Thursday, October 27, 2016 11:38 - CONCLUSION: I see no unexpected radiopaque foreign bodies. Gennaro Mueller MD FACR Tibia/Fibula X-Ray 10/27/16 Signed Impressions: Service Date/Time: Thursday, October 27, 2016 07:51 - CONCLUSION: 1. Severely comminuted fractures involving the distal tibia 2. Fractures involving the proximal and distal fibula Austin Candelario MD Radius/Ulna X-Ray 10/27/16 Signed Impressions: Service Date/Time: Thursday, October 27, 2016 11:38 - CONCLUSION: There is no radiopaque retained surgical instruments. Gennaro Mueller MD FACR Maxillofacial CT 10/27/16 Signed Impressions: Service Date/Time: Thursday, October 27, 2016 08:16 - CONCLUSION: 1. Acute fractures involving the nasion and nasal septum. 2. Periorbital soft tissue hematoma on the left. 3. Chronic maxillary sinus disease on the right. Carlo Bal Jr., MD Lower Extremity CT 10/27/16 Signed Impressions: Service Date/Time: Thursday, October 27, 2016 08:30 - CONCLUSION: 1. Multiple fractures involving the right foot. 2. Joint dislocation between the tarsal navicular bone and the talus. The tarsonavicular bone is dislocated anteriorly. Asutin Candelario MD Lower Extremity CT 10/27/16 Signed Impressions: Service Date/Time: Thursday, October 27, 2016 08:30 - CONCLUSION: 1. Distal tibia and fibula are grossly intact. Good alignment at the mortise joint. 2. Multiple severe fractures of the right foot which are described on the CT scan of the foot. Austin Candelario MD Lower Extremity CT 10/27/16 Signed Impressions: Service Date/Time: Thursday, October 27, 2016 08:30 - CONCLUSION: Severely comminuted fracture the distal tibia. Multiple fractures involving the left foot as above Austin Candelario MD Lower Extremity CT 10/27/16 Signed Impressions: Service Date/Time: Thursday, October 27, 2016 08:35 - CONCLUSION: Complex severely comminuted open fracture injuries of the left ankle and hindfoot as described. Jacobo Bragg MD Foot X-Ray 10/27/16 Signed Impressions: Service Date/Time: Thursday, October 27, 2016 11:13 - CONCLUSION: Status post pinning as above. Austin Candelario MD Foot X-Ray 10/27/16 Signed Impressions: Service Date/Time: Thursday, October 27, 2016 07:51 - CONCLUSION: Limited study with no definite bony fractures on this single view. Recommend complete study when patient is stable. Austin Candelario MD Aorta w/Runoff CTA 10/27/16 Signed Impressions: Service Date/Time: Thursday, October 27, 2016 08:30 - CONCLUSION: 1. Patent inflow and outflow bilaterally. 2. Right lower extremity has patency of the trifurcation vessels to the level of the ankle joint. I am able to see the dorsalis pedis artery within its most inferior extent. The posterior tibial artery seen patent to the level just below the medial malleolus. No extravasation to suggest hemorrhage. 3. Left lower extremity shows lack of visualization of the anterior tibial artery beginning just above the ankle joint. This may relate to spasm. I see no extravasation. The posterior tibial artery is patent to level just below the medial malleolus. Carlo Bal Jr., MD Ankle X-Ray 10/27/16 0000 Signed Impressions: Service Date/Time: Thursday, October 27, 2016 11:13 - CONCLUSION: Severely comminuted fractures predominantly involving the distal tibia Austin Candelario MD Ankle X-Ray 10/27/16 0000 Signed Impressions: Service Date/Time: Thursday, October 27, 2016 07:51 - CONCLUSION: Limited examination. Soft tissue swelling with subcutaneous emphysema along the lateral malleolus area. Distal tibia and fibula are grossly intact. Austin Candelario MD Objective Remarks LLE: dressings clean and dry. +exfix. incision healing well. proximal aspect of incision over knee developing necrotic area of skin RLE: +short leg splint. swelling improving. able to flex/extend toes bilaterally +sensation LUE: dressings clean and dry. intact. NVI. + sling Assessment & Plan Assessment and Plan 1) Bilateral calcaneus fractures 2) Open left tibial pilon fx with exfix and wound closure 3) Left Proximal Humerus Fx s/p ORIF - POD 10 -maintain exfix and pin care BID -daily dressing changes to left leg with xeroform/4x4/RUBIA -maintain splint on right ankle at all times -will re-eval swelling of right right calcaneus and will plan for possible surgery tomorrow -NPO after MN One-time dose of 30 mg of Lovenox now -bedrest and elevate BLE BEN ANTONY PA-C Nov 13, 2016 07:25
[2016-11-13 07:26] LABS: BICARBONATE 27.7 MEQ/L (21.0-32.0); MAGNESIUM 2.2 MG/DL (1.5-2.5); POTASSIUM 4.4 MEQ/L (3.5-5.1)
[2016-11-13] MEDS ORDERED: ENOXAPARIN SODIUM 30 MG/0.3 ML SYRINGE SQ ONE (07:30)
[2016-11-13 08:10] VITALS: BP 116/65; PULSE 79; RESP 18; TEMP 97.8; O2SAT 96
[2016-11-13] MEDS: LACTULOSE SYRUP 20 GM/30 ML CUP PO SCH (09:00)
[2016-11-13] MEDS: GABAPENTIN 100 MG CAP PO SCH ×3 (09:00→19:20)
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
[2016-11-13] MEDS: DOCUSATE SODIUM 50 MG/SENNA 8.6 MG TAB PO SCH ×2 (12:05→21:00)
[2016-11-13] MEDS: BACITRACIN TOP OINT 15 GM TUBE TOP SCH ×2 (12:06→21:53)
[2016-11-13] MEDS: CALCIUM CARBONATE 500 MG CHEWABLE TAB CHEW SCH ×2 (12:06→21:51)
[2016-11-13] MEDS: FAMOTIDINE 20 MG TAB PO SCH ×2 (12:06→21:52)
[2016-11-13] MEDS: SODIUM CHLORIDE 0.9% FLUSH 5 ML FLUSH IVF SCH ×2 (12:06→21:52)
[2016-11-13 12:20] VITALS: BP 117/60; PULSE 80; RESP 18; TEMP 97; O2SAT 95
[2016-11-13 16:20] VITALS: BP 117/70; PULSE 80; RESP 18; TEMP 97.6; O2SAT 95
[2016-11-13 20:40] VITALS: BP 126/57; PULSE 84; RESP 20; TEMP 96.4; O2SAT 96
[2016-11-13] MEDS: MAGNESIUM HYDROXIDE SUSP 30 ML CUP PO SCH (21:00)
[2016-11-14] VITALS (7 sets, daily range): BP systolic 105–130; BP diastolic 57–67; PULSE 75–88; RESP 18–21; TEMP 96–98.3; O2SAT 94–100
[2016-11-14 06:31] LABS: PROTHROMBIN TIME - PATIENT 11.4 SEC (9.8-11.6)
[2016-11-14] MEDS: ACETAMINOPHEN 325 MG TAB PO SCH ×3 (08:00→20:00)
[2016-11-14] MEDS ORDERED: ACETAMINOPHEN 1000 MG/100 ML VIAL IV ONE (08:06)
[2016-11-14] MEDS ORDERED: HYDROmorphone HCL PF 2 MG/ML VIAL ONE (08:07)
[2016-11-14] MEDS ORDERED: MIDAZOLAM HCL 2 MG/2 ML VIAL ONE (08:07)
[2016-11-14] MEDS: BACITRACIN TOP OINT 15 GM TUBE TOP SCH ×2 (08:10→21:00)
[2016-11-14] MEDS: FAMOTIDINE 20 MG TAB PO SCH ×2 (08:10→21:15)
[2016-11-14] MEDS: LACTULOSE SYRUP 20 GM/30 ML CUP PO SCH (08:10)
[2016-11-14] MEDS: CALCIUM CARBONATE 500 MG CHEWABLE TAB CHEW SCH ×2 (08:10→21:15)
[2016-11-14] MEDS: GABAPENTIN 100 MG CAP PO SCH ×3 (08:10→18:21)
[2016-11-14] MEDS: DOCUSATE SODIUM 50 MG/SENNA 8.6 MG TAB PO SCH ×2 (08:10→21:00)
[2016-11-14] MEDS: SODIUM CHLORIDE 0.9% FLUSH 5 ML FLUSH IVF SCH ×2 (08:10→21:00)
[2016-11-14] MEDS ORDERED: PROPOFOL 200 MG/20 ML AMP IV ONE (08:19)
[2016-11-14] MEDS ORDERED: NEOSTIGMINE 3 MG/3 ML SYR IV ONE (08:19)
[2016-11-14] MEDS ORDERED: ONDANSETRON HCL 4 MG/2 ML VIAL IV PUSH ONE (08:19)
[2016-11-14] MEDS ORDERED: SODIUM CHLORID 0.9% 500 ML IV SCH (08:30)
[2016-11-14] MEDS ORDERED: LACTATED RINGER'S 1000 ML IV SCH (08:30)
[2016-11-14] MEDS ORDERED: GENTAMICIN SULFATE 80 MG/2 ML VIAL ONE ×2 (08:47→09:19)
[2016-11-14] MEDS ORDERED: ceFAZolin 2 GM PREMIX 50 ML ONE (08:47)
[2016-11-14] MEDS ORDERED: SODIUM CHLOR 0.9% 250 ML INJ 250 ML ONE (08:47)
[2016-11-14] MEDS ORDERED: VANCOMYCIN HCL 1000 MG VIAL ONE ×2 (08:47→09:02)
[2016-11-14] MEDS ORDERED: GENTAMICIN SULFATE 80 MG/2 ML VIAL IRRIGATION ONE (09:27)
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
--- NOTE | 2016-11-14 10:07 | PD.ORT.PN ---
Subjective Subjective Remarks Pain control, no new complaints Objective Vitals Vital Signs Date Time Temp Pulse Resp B/P Pulse Ox O2 Delivery O2 Flow Rate FiO2 11/14/16 08:28 98.3 75 20 128/65 97 11/14/16 07:40 96.8 78 19 105/57 95 11/14/16 04:38 96.3 75 19 127/65 96 11/14/16 00:01 96.0 80 20 130/67 94 11/13/16 20:40 96.4 84 20 126/57 96 11/13/16 16:20 97.6 80 18 117/70 95 11/13/16 12:20 97.0 80 18 117/60 95 I/O 11/13/16 11/13/16 11/13/16 11/14/16 11/14/16 11/14/16 07:00 15:00 23:00 07:00 15:00 23:00 Intake Total 720 ml 980 ml 720 ml 0 ml Output Total 600 ml 250 ml 400 ml Balance 120 ml 980 ml 470 ml -400 ml Intake Oral 720 ml 980 ml 720 ml 0 ml Output Urine Total 600 ml 250 ml 400 ml # Voids 4 2 # Bowel Movements 0 1 0 Result Diagram: 11/13/16 0544 11/13/16 0544 Other Results Laboratory Tests Test 11/14/16 06:02 Prothrombin Time 11.4 SEC (9.8-11.6) Prothromb Time International 1.0 RATIO Ratio Imaging Last 24 hours Impressions Thoracic Spine CT 10/27/16812 Signed Impressions: Service Date/Time: Thursday, October 27, 2016 08:22 - CONCLUSION: Negative CT scan of the thoracic spine for acute traumatic injury. Gennaro Mueller MD FACR Pelvis X-Ray 10/27/16812 Signed Impressions: Service Date/Time: Thursday, October 27, 2016 07:51 - CONCLUSION: No definite bony fracture or joint dislocation. Austin Candelario MD Lumbar Spine CT 10/27/16812 Signed Impressions: Service Date/Time: Thursday, October 27, 2016 08:21 - CONCLUSION: 1. Mild nondisplaced facture involving the anterior superior endplate of L3. 2. Primary bony degenerative changes of the lumbar spine. 3. Mild diffuse broad-based bulging L4-5 4. Bilateral facet arthritis. Austin Candelario MD Head CT 10/27/16812 Signed Impressions: Service Date/Time: Thursday, October 27, 2016 08:16 - CONCLUSION: No acute intracranial hemorrhage. Austin Candelario MD Chest X-Ray 10/27/16812 Signed Impressions: Service Date/Time: Thursday, October 27, 2016 07:51 - CONCLUSION: No definite acute pulmonary infiltrates. CT thorax to follow. Austin Candelario MD Chest CT 10/27/16812 Signed Impressions: Service Date/Time: Thursday, October 27, 2016 08:21 - CONCLUSION: 1. Acute left proximal humeral fracture. 2. No acute intrathoracic abnormality. 3. 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 Carlo Bal Jr., MD Cervical Spine CT 10/27/16812 Signed Impressions: Service Date/Time: Thursday, October 27, 2016 08:18 - CONCLUSION: 1. No fracture or dislocation. 2. Degenerative changes at C6-C7. Carlo Bal Jr., MD Abdomen/Pelvis CT 10/27/16812 Signed Impressions: Service Date/Time: Thursday, October 27, 2016 08:21 - CONCLUSION: 1. No acute abnormality. 2. Small peripelvic cysts involving the left kidney. Carlo Bal Jr., MD Tibia/Fibula X-Ray 10/27/16 Signed Impressions: Service Date/Time: Thursday, October 27, 2016 11:38 - CONCLUSION: I see no unexpected radiopaque foreign bodies. Gennaro Mueller MD FACR Tibia/Fibula X-Ray 10/27/16 Signed Impressions: Service Date/Time: Thursday, October 27, 2016 07:51 - CONCLUSION: 1. Severely comminuted fractures involving the distal tibia 2. Fractures involving the proximal and distal fibula Austin Candelario MD Radius/Ulna X-Ray 10/27/16 0000 Signed Impressions: Service Date/Time: Thursday, October 27, 2016 11:38 - CONCLUSION: There is no radiopaque retained surgical instruments. Gennaro Mueller MD FACR Maxillofacial CT 10/27/16 0000 Signed Impressions: Service Date/Time: Thursday, October 27, 2016 08:16 - CONCLUSION: 1. Acute fractures involving the nasion and nasal septum. 2. Periorbital soft tissue hematoma on the left. 3. Chronic maxillary sinus disease on the right. Carlo Bal Jr., MD Lower Extremity CT 10/27/16 Signed Impressions: Service Date/Time: Thursday, October 27, 2016 08:30 - CONCLUSION: 1. Multiple fractures involving the right foot. 2. Joint dislocation between the tarsal navicular bone and the talus. The tarsonavicular bone is dislocated anteriorly. Austin Candelario MD Lower Extremity CT 10/27/16 Signed Impressions: Service Date/Time: Thursday, October 27, 2016 08:30 - CONCLUSION: 1. Distal tibia and fibula are grossly intact. Good alignment at the mortise joint. 2. Multiple severe fractures of the right foot which are described on the CT scan of the foot. Austin Candelario MD Lower Extremity CT 10/27/16 Signed Impressions: Service Date/Time: Thursday, October 27, 2016 08:30 - CONCLUSION: Severely comminuted fracture the distal tibia. Multiple fractures involving the left foot as above Austin Candelario MD Lower Extremity CT 10/27/16 Signed Impressions: Service Date/Time: Thursday, October 27, 2016 08:35 - CONCLUSION: Complex severely comminuted open fracture injuries of the left ankle and hindfoot as described. Jacobo Bragg MD Foot X-Ray 10/27/16 Signed Impressions: Service Date/Time: Thursday, October 27, 2016 11:13 - CONCLUSION: Status post pinning as above. Austin Candelario MD Foot X-Ray 10/27/16 Signed Impressions: Service Date/Time: Thursday, October 27, 2016 07:51 - CONCLUSION: Limited study with no definite bony fractures on this single view. Recommend complete study when patient is stable. Austin Candelario MD Aorta w/Runoff CTA 10/27/16 Signed Impressions: Service Date/Time: Thursday, October 27, 2016 08:30 - CONCLUSION: 1. Patent inflow and outflow bilaterally. 2. Right lower extremity has patency of the trifurcation vessels to the level of the ankle joint. I am able to see the dorsalis pedis artery within its most inferior extent. The posterior tibial artery seen patent to the level just below the medial malleolus. No extravasation to suggest hemorrhage. 3. Left lower extremity shows lack of visualization of the anterior tibial artery beginning just above the ankle joint. This may relate to spasm. I see no extravasation. The posterior tibial artery is patent to level just below the medial malleolus. Carlo Bal Jr., MD Ankle X-Ray 10/27/16 0000 Signed Impressions: Service Date/Time: Thursday, October 27, 2016 11:13 - CONCLUSION: Severely comminuted fractures predominantly involving the distal tibia Austin Candelario MD Ankle X-Ray 10/27/16 0000 Signed Impressions: Service Date/Time: Thursday, October 27, 2016 07:51 - CONCLUSION: Limited examination. Soft tissue swelling with subcutaneous emphysema along the lateral malleolus area. Distal tibia and fibula are grossly intact. Austin Candelario MD Objective Remarks LLE: dressings clean and dry. +exfix. incision healing well. proximal aspect of incision over knee developing necrotic area of skin RLE: +short leg splint. swelling improving. able to flex/extend toes bilaterally +sensation LUE: dressings clean and dry. intact. NVI. + sling Assessment & Plan Assessment and Plan 1) Bilateral calcaneus fractures 2) Open left tibial pilon fx with exfix and wound closure 3) Left Proximal Humerus Fx s/p ORIF - POD 11 -maintain exfix and pin care BID -daily dressing changes to left leg with xeroform/4x4/RUBIA -maintain splint on right ankle at all times -NPO -bedrest and elevate BLE Surgery this morning with Dr. Kenyatta ANTONY,BEN Zabala PA-C Nov 14, 2016 10:07
[2016-11-14] MEDS ORDERED: LACTATED RINGER'S 1000 ML INJ 1,000 ML IV SCH (11:23)
[2016-11-14] MEDS ORDERED: ceFAZolin 2 GM PREMIX 50 ML IV SCH (11:30)
[2016-11-14] MEDS ORDERED: ACETAMINOPHEN/HYDROcodone 325 MG/10 MG TAB PO PRN (11:30)
[2016-11-14] MEDS ORDERED: Post-op Orders (for Pharmacy) MISC XX ONE ×2 (11:30)
[2016-11-14] MEDS ORDERED: MORPHINE SULFATE 4 MG/ML INJ IV PUSH PRN (11:30)
[2016-11-14] MEDS ORDERED: SODIUM CHLORIDE 0.9% FLUSH 5 ML FLUSH IVF PRN ×2 (11:30)
[2016-11-14] MEDS ORDERED: NALOXONE HCL 0.4 MG/ML AMP IV PRN (11:30)
--- NOTE | 2016-11-14 11:34 | PD.OP ---
cc: Sedrick Dutton MD Operative Report Date of Surgery: Nov 14, 2016 Preoperative Diagnosis: Comminuted open right calcaneus fracture Postoperative Diagnosis: Procedure: Open reduction internal fixation right calcaneus, and primary subtalar arthrodesis Anesthesia: Gen. Surgeon: Sedrick Dutton Compressor Mechanic(s): CALI Wolf PA-C The surgical procedure was assisted by my physician assistant housekeeping manager. My P.A. presence was necessary throughout this case for the manipulation and positioning of the surgical extremity. My P.A. was assisting me throughout the duration of this procedure. The skill set of a physician assistant housekeeping manager was medically necessary to complete this procedure. During the surgical case the surgical scrub technologist was working at the back table and the physician assistant housekeeping manager was directly assisting me. Operation and Findings: Tourniquet time --93 minutes at 250 mmHg Informed consent obtained, operative site was marked. The foot and ankle were seen and evaluated this morning. Soft tissue swelling had significantly improved and appeared to be ready for surgery. I explained in depth with patient the risk of wound infections and wound breakdown. I also explained to him the possible risk of amputation if he gets a wound breakdown or infection. Informed consent was confirmed. He was brought to the operating room and placed on the operating room table. He was given intravenous sedation, general endotracheal anesthesia. He received IV antibiotics and was placed in the lateral decubitus position. Foot and leg were prepped with alcohol, followed by Hibiclens, draped in usual sterile fashion. A time out procedure was preformed. The procedure began with a 5 centimeter incision over the lateral aspect of the calcaneus centers over the subtalar joint. A full thickness flap was carefully elevated. The perineal tendons were also mobilized. Periosteum was elevated off the calcaneous. At this point the leg was elevated. The tourniquet was inflated. Attention was now turned to exposure of the calcaneus. The lateral wall was comminuted. A Steinmann pin was placed into the talus and into the calcaneus. Laminar automobile dealer was now placed to help distract the fracture. Articular surface was now visualized. Articular surface was in several fragments. There was a portion of the subtalar joint which appeared to be missing. There was significant osteochondral injury to both the talus and calcaneus side of the posterior facet. At this point decision was made to proceed with open reduction internal fixation of the calcaneus fracture with primary subtalar fusion of the posterior facet. The talus was used as a template for reduction. The K-wires were used to hold provisional fixation. The laminar automobile dealer was now used to distract the posterior tuberosity. A Shands pin was placed to help joystick the political worker tuberosity into appropriate position. Multiple K-wires result provisional fixation. Multiplanar fluoroscopy confirmed well aligned fracture. The anterior process was now reduced. The anterior process was split into 2 main fragments. These fractures keyed in anatomic alignment and were reduced to the cuboid. 2 K wires result provisional fixation. This keyed into appropriate position. At this point a Synthes calcaneus plate was selected. Plate was placed underneath the peroneal tendons. Plate was provisionally held the bone with K wires. 2.7 cortical lag screws were placed through the plate to compress the posterior facet fragments. Good compression was obtained. Additional cortical and locking screws were placed into the plate. All screws were predrilled and premeasured for appropriate lengths. Fluoroscopy confirmed appropriate alignment of fracture. Next attention was turned towards subtalar joint arthrodesis. The joint was exposed and distracted. A TPS bur was used to debride the remaining articular surface cartilage. A 2.0 drill was used to make multiple holes in the talus and calcaneus. The subtalar joint was now reduced. 2 guide pins for the Synthes 6.5 cannulated screws were placed through the posterior tuberosity into the talus body. Fluoroscopy confirmed appropriate guidepin placement. The screw lengths were measured. Cannulated drill was placed over the guidepins. 2 appropriate length screws were now placed. The compression was applied. At this point it iliac crest bone graft was obtained. A 3 cm incision was made over the iliac crest. A window was made in the cortex. Curettes were used to obtain bone graft. The bone graft was now packed around the subtalar joint surface as well as the calcaneus fracture site. There was still a small void present. 5 cc of stimulant cement was mixed with 1 g of vancomycin. Cement was placed into the defect of the calcaneus body. Tourniquet was released. Hemostasis was obtained. Final fluoroscopy confirmed well aligned fracture with well-placed hardware. Wound was thoroughly irrigated. Tourniquet was released. Hemostasis was confirmed. Fascia was closed with 0 Vicryl, subcutaneous tissues closed with 3-0 Vicryl, and skin was closed with 3-0 nylon. Sterile dressings were applied. A wound VAC was now placed over the lateral incision. VAC dressing was sealed appropriately. Patient was placed into a well molded well-padded splint. Patient was transferred to recovery in stable condition. Sedrick Dutton MD Nov 14, 2016 11:34
[2016-11-14] MEDS ORDERED: DO NOT ADM ANY ANTICOAGULANT DRUGS XX PRN (12:00)
[2016-11-14] MEDS ORDERED: *morphine SULFATE 8 MG/ML PERIprocedure ONLY ONE (12:37)
[2016-11-14] MEDS: LACTATED RINGER'S 1000 ML INJ 1,000 ML IV SCH (12:45)
[2016-11-14] MEDS: MORPHINE SULFATE 30 MG/30 ML PCA IV SCH (12:53)
[2016-11-14] MEDS: PCA - TOTAL MG MORPHINE DELIVERED PER SHIFT SCH ×2 (14:00→21:16)
[2016-11-14] MEDS ORDERED: PCA - TOTAL MG MORPHINE DELIVERED PER SHIFT SCH (14:00)
[2016-11-14] MEDS ORDERED: fentaNYL CITRATE 250 MCG/5 ML AMP ONE (15:02)
--- NOTE | 2016-11-14 15:13 | RADRPT ---
EXAM DATE/TIME: 11/14/2016 11:07 [facility] COMPARISON: HEEL RIGHT ([id number]), October 27, 2016, 11:13. INDICATIONS : ORIF right calcaneus. MEDICAL HISTORY : None. SURGICAL HISTORY : None. ENCOUNTER: Subsequent ACUITY: 2 weeks PAIN SCORE: Non-responsive. LOCATION: Right calcaneus. CONCLUSION: Fluoroscopic images during placement of screws, plate and screws and pins through the hindfoot fixating fractures mainly of the calcaneus. Jayme Marquez MD on November 14, 2016 at 15:10 Board Certified Radiologist. This report was verified electronically.
[2016-11-14] MEDS: ceFAZolin 2 GM PREMIX 50 ML IV SCH (17:50)
[2016-11-14] MEDS ORDERED: VANCOMYCIN INJ 1,000 MG in SODIUM CHLOR 0.9% 250 ML INJ 250 ML IV SCH (21:00)
[2016-11-14] MEDS ORDERED: SODIUM CHLORIDE 0.9% FLUSH 5 ML FLUSH IVF SCH ×2 (21:00)
[2016-11-14] MEDS: MAGNESIUM HYDROXIDE SUSP 30 ML CUP PO SCH (21:00)
[2016-11-14] MEDS: VANCOMYCIN INJ 1,000 MG in SODIUM CHLOR 0.9% 250 ML INJ 250 ML IV SCH (21:15)
[2016-11-14] MEDS ORDERED: INSULIN HUMAN REGULAR 1,000 UNITS/10 ML VIAL SQ PRN (23:45)
[2016-11-15] VITALS (8 sets, daily range): BP systolic 104–125; BP diastolic 50–65; PULSE 79–94; RESP 18–21; TEMP 96.6–98.1; O2SAT 96–100
[2016-11-15] MEDS: ceFAZolin 2 GM PREMIX 50 ML IV SCH ×3 (01:00→17:15)
[2016-11-15] MEDS: ACETAMINOPHEN 325 MG TAB PO SCH ×5 (01:00→23:26)
[2016-11-15] MEDS: PCA - TOTAL MG MORPHINE DELIVERED PER SHIFT SCH ×3 (06:00→20:51)
--- NOTE | 2016-11-15 06:56 | PD.ORT.PN ---
Subjective Subjective Remarks Pain control, no new complaints Objective Vitals Vital Signs Date Time Temp Pulse Resp B/P Pulse Ox O2 Delivery O2 Flow Rate FiO2 11/15/16 04:39 97.9 79 20 125/65 100 11/15/16 00:34 97.4 80 21 105/56 100 11/14/16 21:16 14 11/14/16 20:36 96.4 88 21 125/61 100 11/14/16 19:24 96 Nasal Cannula 3.00 11/14/16 13:30 97.3 81 18 110/67 99 11/14/16 13:00 97.6 66 16 136/68 98 Nasal Cannula 2 11/14/16 12:53 5 11/14/16 12:45 67 16 135/78 97 Room Air 2 11/14/16 12:34 98.0 66 16 136/68 98 Nasal Cannula 2 11/14/16 08:28 98.3 75 20 128/65 97 11/14/16 07:40 96.8 78 19 105/57 95 I/O 11/14/16 11/14/16 11/14/16 11/15/16 11/15/16 11/15/16 07:00 15:00 23:00 07:00 15:00 23:00 Intake Total 0 ml 1000 ml 240 ml Output Total 400 ml 30 ml 450 ml Balance -400 ml 970 ml -210 ml Intake Oral 0 ml 240 ml IV Total 200 ml Other 800 ml Output Urine Total 400 ml 250 ml Drainage Total 200 ml Estimated Blood Loss 30 ml # Bowel Movements 0 0 Result Diagram: 11/13/16 0544 11/13/16 0544 Imaging Last 24 hours Impressions Thoracic Spine CT 10/27/16812 Signed Impressions: Service Date/Time: Thursday, October 27, 2016 08:22 - CONCLUSION: Negative CT scan of the thoracic spine for acute traumatic injury. Gennaro Mueller MD FACR Pelvis X-Ray 10/27/16812 Signed Impressions: Service Date/Time: Thursday, October 27, 2016 07:51 - CONCLUSION: No definite bony fracture or joint dislocation. Austin Candelario MD Lumbar Spine CT 10/27/16812 Signed Impressions: Service Date/Time: Thursday, October 27, 2016 08:21 - CONCLUSION: 1. Mild nondisplaced facture involving the anterior superior endplate of L3. 2. Primary bony degenerative changes of the lumbar spine. 3. Mild diffuse broad-based bulging L4-5 4. Bilateral facet arthritis. Austin Candelario MD Head CT 10/27/16812 Signed Impressions: Service Date/Time: Thursday, October 27, 2016 08:16 - CONCLUSION: No acute intracranial hemorrhage. Austin Candelario MD Chest X-Ray 10/27/16812 Signed Impressions: Service Date/Time: Thursday, October 27, 2016 07:51 - CONCLUSION: No definite acute pulmonary infiltrates. CT thorax to follow. Austin Candelario MD Chest CT 10/27/16812 Signed Impressions: Service Date/Time: Thursday, October 27, 2016 08:21 - CONCLUSION: 1. Acute left proximal humeral fracture. 2. No acute intrathoracic abnormality. 3. 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 Carlo Bal Jr., MD Cervical Spine CT 10/27/16812 Signed Impressions: Service Date/Time: Thursday, October 27, 2016 08:18 - CONCLUSION: 1. No fracture or dislocation. 2. Degenerative changes at C6-C7. Carlo Bal Jr., MD Abdomen/Pelvis CT 10/27/16812 Signed Impressions: Service Date/Time: Thursday, October 27, 2016 08:21 - CONCLUSION: 1. No acute abnormality. 2. Small peripelvic cysts involving the left kidney. Carlo Bal Jr., MD Tibia/Fibula X-Ray 10/27/16 Signed Impressions: Service Date/Time: Thursday, October 27, 2016 11:38 - CONCLUSION: I see no unexpected radiopaque foreign bodies. Gennaro Mueller MD FACR Tibia/Fibula X-Ray 10/27/16 Signed Impressions: Service Date/Time: Thursday, October 27, 2016 07:51 - CONCLUSION: 1. Severely comminuted fractures involving the distal tibia 2. Fractures involving the proximal and distal fibula Austin Candelario MD Radius/Ulna X-Ray 10/27/16 Signed Impressions: Service Date/Time: Thursday, October 27, 2016 11:38 - CONCLUSION: There is no radiopaque retained surgical instruments. Gennaro Mueller MD FACR Maxillofacial CT 10/27/16 Signed Impressions: Service Date/Time: Thursday, October 27, 2016 08:16 - CONCLUSION: 1. Acute fractures involving the nasion and nasal septum. 2. Periorbital soft tissue hematoma on the left. 3. Chronic maxillary sinus disease on the right. Carlo Bal Jr., MD Lower Extremity CT 10/27/16 Signed Impressions: Service Date/Time: Thursday, October 27, 2016 08:30 - CONCLUSION: 1. Multiple fractures involving the right foot. 2. Joint dislocation between the tarsal navicular bone and the talus. The tarsonavicular bone is dislocated anteriorly. Austin Candelario MD Lower Extremity CT 10/27/16 Signed Impressions: Service Date/Time: Thursday, October 27, 2016 08:30 - CONCLUSION: 1. Distal tibia and fibula are grossly intact. Good alignment at the mortise joint. 2. Multiple severe fractures of the right foot which are described on the CT scan of the foot. Austin Candelario MD Lower Extremity CT 10/27/16 Signed Impressions: Service Date/Time: Thursday, October 27, 2016 08:30 - CONCLUSION: Severely comminuted fracture the distal tibia. Multiple fractures involving the left foot as above Austin Candelario MD Lower Extremity CT 10/27/16 Signed Impressions: Service Date/Time: Thursday, October 27, 2016 08:35 - CONCLUSION: Complex severely comminuted open fracture injuries of the left ankle and hindfoot as described. Jacobo Bragg MD Foot X-Ray 10/27/16 Signed Impressions: Service Date/Time: Thursday, October 27, 2016 11:13 - CONCLUSION: Status post pinning as above. Austin Candelario MD Foot X-Ray 10/27/16 Signed Impressions: Service Date/Time: Thursday, October 27, 2016 07:51 - CONCLUSION: Limited study with no definite bony fractures on this single view. Recommend complete study when patient is stable. Austin Candelario MD Aorta w/Runoff CTA 10/27/16 Signed Impressions: Service Date/Time: Thursday, October 27, 2016 08:30 - CONCLUSION: 1. Patent inflow and outflow bilaterally. 2. Right lower extremity has patency of the trifurcation vessels to the level of the ankle joint. I am able to see the dorsalis pedis artery within its most inferior extent. The posterior tibial artery seen patent to the level just below the medial malleolus. No extravasation to suggest hemorrhage. 3. Left lower extremity shows lack of visualization of the anterior tibial artery beginning just above the ankle joint. This may relate to spasm. I see no extravasation. The posterior tibial artery is patent to level just below the medial malleolus. Carlo Bal Jr., MD Ankle X-Ray 10/27/16 0000 Signed Impressions: Service Date/Time: Thursday, October 27, 2016 11:13 - CONCLUSION: Severely comminuted fractures predominantly involving the distal tibia Austin Candelario MD Ankle X-Ray 10/27/16 0000 Signed Impressions: Service Date/Time: Thursday, October 27, 2016 07:51 - CONCLUSION: Limited examination. Soft tissue swelling with subcutaneous emphysema along the lateral malleolus area. Distal tibia and fibula are grossly intact. Austin Candelario MD Objective Remarks LLE: dressings clean and dry. +exfix. incision healing well. proximal aspect of incision over knee developing necrotic area of skin RLE: +short leg splint. swelling improving. Wound VAC intact able to flex/extend toes bilaterally +sensation LUE: dressings clean and dry. intact. NVI. + sling Assessment & Plan Assessment and Plan Right subtalar fusion and talonavicular dislocation POD 1 with wound VAC 2) Open left tibial pilon fx with exfix and wound closure 3) Left Proximal Humerus Fx s/p ORIF - POD 11 -maintain exfix and pin care BID -daily dressing changes to left leg with xeroform/4x4/RUBIA -maintain splint on right ankle at all times as well as wound VAC -bedrest and elevate BLE We will reassess left ankle and foot for swelling. Possible surgery on Sunday if swelling improves BEN ANTONY PA-C Nov 15, 2016 06:56
[2016-11-15] MEDS: GABAPENTIN 100 MG CAP PO SCH ×3 (08:57→18:22)
[2016-11-15] MEDS: DOCUSATE SODIUM 50 MG/SENNA 8.6 MG TAB PO SCH ×2 (08:57→20:08)
[2016-11-15] MEDS: FAMOTIDINE 20 MG TAB PO SCH ×2 (08:57→20:08)
[2016-11-15] MEDS: CALCIUM CARBONATE 500 MG CHEWABLE TAB CHEW SCH ×2 (08:57→20:09)
[2016-11-15] MEDS: VANCOMYCIN INJ 1,000 MG in SODIUM CHLOR 0.9% 250 ML INJ 250 ML IV SCH ×2 (08:58→20:09)
[2016-11-15] MEDS: LACTULOSE SYRUP 20 GM/30 ML CUP PO SCH (08:59)
[2016-11-15] MEDS: SODIUM CHLORIDE 0.9% FLUSH 5 ML FLUSH IVF SCH ×2 (08:59→20:06)
[2016-11-15] MEDS: BACITRACIN TOP OINT 15 GM TUBE TOP SCH ×2 (09:00→20:06)
--- NOTE | 2016-11-15 13:07 | RADRPT ---
EXAM DATE/TIME: 11/15/2016 12:05 [facility] COMPARISON: SHOULDER LEFT LTD (2VWS), October 31, 2016, 12:32. INDICATIONS: Post shoulder surgery 10/27 MEDICAL HISTORY: None. SURGICAL HISTORY: Ankle, shoulder surgery ENCOUNTER: Subsequent ACUITY: 1 month PAIN SCORE: 5/10 LOCATION: Left Shoulder FINDINGS: Plate with screws is seen bridging the humeral fracture. Surgical clips are evident. Surgical ankle also noted. CONCLUSION: Postsurgical changes as described above. Gennaro Mueller MD FACR on November 15, 2016 at 12:51 Board Certified Radiologist. This report was verified electronically.
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
[2016-11-15] MEDS: MORPHINE SULFATE 30 MG/30 ML PCA IV SCH (16:17)
[2016-11-15] MEDS: LACTATED RINGER'S 1000 ML INJ 1,000 ML IV SCH ×2 (17:23→23:25)
[2016-11-15] MEDS: MAGNESIUM HYDROXIDE SUSP 30 ML CUP PO SCH (20:09)
[2016-11-16 00:01] VITALS: BP 110/56; PULSE 94; RESP 21; TEMP 98.7; O2SAT 95
[2016-11-16] MEDS: ceFAZolin 2 GM PREMIX 50 ML IV SCH ×2 (00:18→18:00)
[2016-11-16] MEDS: ACETAMINOPHEN 325 MG TAB PO SCH ×3 (00:18→20:00)
[2016-11-16 04:35] VITALS: BP 132/65; PULSE 93; RESP 20; TEMP 96; O2SAT 95
[2016-11-16] MEDS: PCA - TOTAL MG MORPHINE DELIVERED PER SHIFT SCH ×2 (06:00→21:07)
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
[2016-11-16] MEDS ORDERED: ONDANSETRON HCL 4 MG/2 ML VIAL IV PUSH ONE (07:52)
[2016-11-16] MEDS ORDERED: PROPOFOL 200 MG/20 ML AMP IV ONE (07:52)
[2016-11-16] MEDS ORDERED: NORMOSOL R INJ 2,000 ML IV ONE (07:53)
[2016-11-16 08:00] VITALS: BP 112/55; PULSE 82; RESP 17; TEMP 96.7; O2SAT 98
[2016-11-16] MEDS: CALCIUM CARBONATE 500 MG CHEWABLE TAB CHEW SCH ×2 (08:31→21:06)
[2016-11-16] MEDS: SODIUM CHLORIDE 0.9% FLUSH 5 ML FLUSH IVF SCH ×2 (08:32→21:00)
[2016-11-16] MEDS: DOCUSATE SODIUM 50 MG/SENNA 8.6 MG TAB PO SCH ×2 (08:32→21:07)
[2016-11-16] MEDS: BACITRACIN TOP OINT 15 GM TUBE TOP SCH ×2 (08:32→21:07)
[2016-11-16] MEDS: ENOXAPARIN SODIUM 30 MG/0.3 ML SYRINGE SQ SCH ×2 (08:32→20:59)
[2016-11-16] MEDS: GABAPENTIN 100 MG CAP PO SCH ×2 (08:32→21:06)
[2016-11-16] MEDS: FAMOTIDINE 20 MG TAB PO SCH ×2 (08:32→21:07)
[2016-11-16] MEDS: LACTULOSE SYRUP 20 GM/30 ML CUP PO SCH (08:32)
[2016-11-16] MEDS: LACTATED RINGER'S 1000 ML INJ 1,000 ML IV SCH (08:33)
[2016-11-16] MEDS ORDERED: INSULIN HUMAN REGULAR 1,000 UNITS/10 ML VIAL SQ PRN (09:15)
[2016-11-16] MEDS ORDERED: SODIUM CHLORID 0.9% 500 ML IV SCH (09:15)
[2016-11-16] MEDS ORDERED: METOPROLOL TARTRATE 25 MG TAB PO PRN (09:15)
[2016-11-16] MEDS ORDERED: LACTATED RINGER'S 1000 ML IV SCH (09:15)
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
[2016-11-16 12:04] VITALS: BP 117/57; PULSE 80; RESP 17; TEMP 97.3; O2SAT 97
[2016-11-16] MEDS ORDERED: GENTAMICIN SULFATE 80 MG/2 ML VIAL ONE (13:20)
[2016-11-16] MEDS ORDERED: VANCOMYCIN HCL 1000 MG VIAL ONE (14:16)
[2016-11-16] MEDS ORDERED: SODIUM CHLOR 0.9% 250 ML INJ 250 ML ONE (14:16)
[2016-11-16] MEDS ORDERED: FAMOTIDINE 20 MG/2 ML VIAL ONE (14:22)
[2016-11-16] MEDS ORDERED: MIDAZOLAM HCL 2 MG/2 ML VIAL ONE (14:22)
[2016-11-16] MEDS ORDERED: HYDROmorphone HCL PF 2 MG/ML VIAL ONE (14:55)
[2016-11-16] MEDS ORDERED: ACETAMINOPHEN 1000 MG/100 ML VIAL IV ONE (14:55)
[2016-11-16] MEDS ORDERED: MORPHINE SULFATE 4 MG/ML INJ IV PUSH PRN (17:30)
[2016-11-16] MEDS ORDERED: MORPHINE SULFATE 30 MG/30 ML PCA IV SCH (17:30)
[2016-11-16] MEDS ORDERED: MISCELLANEOUS NURSING INFORMATION XX PRN (17:30)
[2016-11-16] MEDS ORDERED: ACETAMINOPHEN/HYDROcodone 325 MG/10 MG TAB PO PRN (17:30)
[2016-11-16] MEDS ORDERED: Post-op Orders (for Pharmacy) MISC XX ONE (17:30)
[2016-11-16] MEDS ORDERED: SODIUM CHLORIDE 0.9% FLUSH 5 ML FLUSH IVF PRN (17:30)
[2016-11-16] MEDS ORDERED: MISCELLANEOUS PHARMACY INFORMATION XX ONE (17:30)
--- NOTE | 2016-11-16 17:41 | RADRPT ---
EXAM DATE/TIME: 11/16/2016 17:16 [facility] COMPARISON: ANKLE LEFT LIMITED (AP&LAT), October 27, 2016, 11:13. INDICATIONS : ORIF Left Ankle. MEDICAL HISTORY : Unobtainable. SURGICAL HISTORY : Unobtainable. ENCOUNTER: Initial ACUITY: 1 day PAIN SCORE: Non-responsive. LOCATION: Left Ankle. FINDINGS: 6 images from the OR had been obtained. There is a sana through the calcaneus, talus and distal tibia. Again noted is a severely comminuted distal tibial fracture. There appears to be fracturing of the c alcaneus. There is a thin sana through the mid and distal fibula for the distal fibular fracture. The patient appears to be an external fixator. CONCLUSION: Status post ORIF. Jacobo Reed MD on November 16, 2016 at 17:37 Board Certified Radiologist. This report was verified electronically.
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
[2016-11-16] MEDS: KETOROLAC TROMETHAMINE 30 MG/ML (IVP) VIAL IVP SCH (18:00)
[2016-11-16] MEDS ORDERED: CHOLECALCIFEROL (VIT D3) 1000 UNIT TAB PO ONE (18:00)
[2016-11-16] MEDS ORDERED: ERGOCALCIFEROL (VIT D2) 50,000 UNIT CAP PO SCH (18:00)
[2016-11-16] MEDS ORDERED: DO NOT ADM ANY ANTICOAGULANT DRUGS XX PRN (18:43)
[2016-11-16] MEDS ORDERED: fentaNYL CITRATE 250 MCG/5 ML AMP ONE (18:55)
[2016-11-16] MEDS ORDERED: *morphine SULFATE 8 MG/ML PERIprocedure ONLY ONE ×3 (19:13→20:04)
[2016-11-16 20:35] VITALS: BP 116/58; PULSE 84; RESP 16; TEMP 97.6; O2SAT 99
[2016-11-16] MEDS: MAGNESIUM HYDROXIDE SUSP 30 ML CUP PO SCH (21:07)
[2016-11-16 23:30] VITALS: BP 96/50; PULSE 98; RESP 16; TEMP 96.3; O2SAT 95
[2016-11-16] MEDS: GENTAMICIN 80 MG PREMIX 100 ML IV SCH (23:36)
[2016-11-17] MEDS: ACETAMINOPHEN 325 MG TAB PO SCH (02:00)
[2016-11-17] MEDS: ceFAZolin 2 GM PREMIX 50 ML IV SCH ×3 (02:21→17:57)
[2016-11-17 04:00] VITALS: BP 105/51; PULSE 95; RESP 16; TEMP 97.6; O2SAT 98
[2016-11-17 05:16] LABS: HEMATOCRIT 23.5 % (39.0-51.0); REVIEW FLAG FINAL
[2016-11-17] MEDS: LACTATED RINGER'S 1000 ML INJ 1,000 ML IV SCH ×2 (06:00→18:30)
[2016-11-17] MEDS: PCA - TOTAL MG MORPHINE DELIVERED PER SHIFT SCH ×3 (06:02→21:52)
[2016-11-17] MEDS: KETOROLAC TROMETHAMINE 30 MG/ML (IVP) VIAL IVP SCH ×2 (06:04→17:58)
[2016-11-17] MEDS ORDERED: CALC500C16 CHEW (06:24)
[2016-11-17] MEDS ORDERED: DRIS50002 PO (06:24)
[2016-11-17] MEDS ORDERED: HYDR-3366 PO (06:24)
[2016-11-17] MEDS ORDERED: XARE10TA PO (06:24)
--- NOTE | 2016-11-17 07:05 | PD.ORT.PN ---
Subjective Subjective Remarks Pain control, no new complaints Objective Vitals Vital Signs Date Time Temp Pulse Resp B/P Pulse Ox O2 Delivery O2 Flow Rate FiO2 11/17/16 04:00 97.6 95 16 105/51 98 11/16/16 23:30 96.3 98 16 96/50 95 11/16/16 20:35 97.6 84 16 116/58 99 11/16/16 20:15 98.0 80 15 130/65 99 Nasal Cannula 3 11/16/16 20:00 82 16 143/74 99 Nasal Cannula 3 11/16/16 19:45 83 16 143/74 99 Nasal Cannula 3 11/16/16 19:30 74 16 144/69 99 Nasal Cannula 3 11/16/16 19:15 74 17 148/70 99 Nasal Cannula 3 11/16/16 19:00 72 15 152/74 97 Nasal Cannula 3 11/16/16 18:45 74 15 152/71 97 Nasal Cannula 3 11/16/16 18:39 97.6 92 14 142/71 93 Nasal Cannula 3 11/16/16 12:04 97.3 80 17 117/57 97 11/16/16 08:00 96.7 82 17 112/55 98 I/O 11/16/16 11/16/16 11/16/16 11/17/16 11/17/16 11/17/16 07:00 15:00 23:00 07:00 15:00 23:00 Intake Total 605 ml 0 ml 2240 ml Output Total 1300 ml 600 ml 280 ml Balance -695 ml -600 ml 1960 ml Intake Oral 120 ml 0 ml 240 ml IV Total 485 ml 400 ml Other 1600 ml Output Urine Total 1275 ml 600 ml 100 ml Drainage Total 25 ml 0 ml Estimated Blood Loss 180 ml # Bowel Movements 0 0 0 Result Diagram: 11/17/16 0430 11/13/16 0544 Imaging Last 24 hours Impressions Thoracic Spine CT 10/27/16812 Signed Impressions: Service Date/Time: Thursday, October 27, 2016 08:22 - CONCLUSION: Negative CT scan of the thoracic spine for acute traumatic injury. Gennaro Mueller MD FACR Pelvis X-Ray 10/27/16812 Signed Impressions: Service Date/Time: Thursday, October 27, 2016 07:51 - CONCLUSION: No definite bony fracture or joint dislocation. Austin Candelario MD Lumbar Spine CT 10/27/16812 Signed Impressions: Service Date/Time: Thursday, October 27, 2016 08:21 - CONCLUSION: 1. Mild nondisplaced facture involving the anterior superior endplate of L3. 2. Primary bony degenerative changes of the lumbar spine. 3. Mild diffuse broad-based bulging L4-5 4. Bilateral facet arthritis. Austin Candelario MD Head CT 10/27/16812 Signed Impressions: Service Date/Time: Thursday, October 27, 2016 08:16 - CONCLUSION: No acute intracranial hemorrhage. Austin Candelario MD Chest X-Ray 10/27/16812 Signed Impressions: Service Date/Time: Thursday, October 27, 2016 07:51 - CONCLUSION: No definite acute pulmonary infiltrates. CT thorax to follow. Austin Candelario MD Chest CT 10/27/16812 Signed Impressions: Service Date/Time: Thursday, October 27, 2016 08:21 - CONCLUSION: 1. Acute left proximal humeral fracture. 2. No acute intrathoracic abnormality. 3. 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 Carlo Bal Jr., MD Cervical Spine CT 10/27/16812 Signed Impressions: Service Date/Time: Thursday, October 27, 2016 08:18 - CONCLUSION: 1. No fracture or dislocation. 2. Degenerative changes at C6-C7. Carlo Bal Jr., MD Abdomen/Pelvis CT 10/27/16812 Signed Impressions: Service Date/Time: Thursday, October 27, 2016 08:21 - CONCLUSION: 1. No acute abnormality. 2. Small peripelvic cysts involving the left kidney. Carlo Bal Jr., MD Tibia/Fibula X-Ray 10/27/16 Signed Impressions: Service Date/Time: Thursday, October 27, 2016 11:38 - CONCLUSION: I see no unexpected radiopaque foreign bodies. Gennaro Mueller MD FACR Tibia/Fibula X-Ray 10/27/16 Signed Impressions: Service Date/Time: Thursday, October 27, 2016 07:51 - CONCLUSION: 1. Severely comminuted fractures involving the distal tibia 2. Fractures involving the proximal and distal fibula Austin Candelario MD Radius/Ulna X-Ray 10/27/16 Signed Impressions: Service Date/Time: Thursday, October 27, 2016 11:38 - CONCLUSION: There is no radiopaque retained surgical instruments. Gennaro Mueller MD FACR Maxillofacial CT 10/27/16 Signed Impressions: Service Date/Time: Thursday, October 27, 2016 08:16 - CONCLUSION: 1. Acute fractures involving the nasion and nasal septum. 2. Periorbital soft tissue hematoma on the left. 3. Chronic maxillary sinus disease on the right. Carlo Bal Jr., MD Lower Extremity CT 10/27/16 Signed Impressions: Service Date/Time: Thursday, October 27, 2016 08:30 - CONCLUSION: 1. Multiple fractures involving the right foot. 2. Joint dislocation between the tarsal navicular bone and the talus. The tarsonavicular bone is dislocated anteriorly. Austin Candelario MD Lower Extremity CT 10/27/16 Signed Impressions: Service Date/Time: Thursday, October 27, 2016 08:30 - CONCLUSION: 1. Distal tibia and fibula are grossly intact. Good alignment at the mortise joint. 2. Multiple severe fractures of the right foot which are described on the CT scan of the foot. Austin Candelario MD Lower Extremity CT 10/27/16 Signed Impressions: Service Date/Time: Thursday, October 27, 2016 08:30 - CONCLUSION: Severely comminuted fracture the distal tibia. Multiple fractures involving the left foot as above Austin Candelario MD Lower Extremity CT 10/27/16 Signed Impressions: Service Date/Time: Thursday, October 27, 2016 08:35 - CONCLUSION: Complex severely comminuted open fracture injuries of the left ankle and hindfoot as described. Jacobo Bragg MD Foot X-Ray 10/27/16 Signed Impressions: Service Date/Time: Thursday, October 27, 2016 11:13 - CONCLUSION: Status post pinning as above. Austin Candelario MD Foot X-Ray 10/27/16 Signed Impressions: Service Date/Time: Thursday, October 27, 2016 07:51 - CONCLUSION: Limited study with no definite bony fractures on this single view. Recommend complete study when patient is stable. Austin Candelario MD Aorta w/Runoff CTA 2/24/17 0000 Signed Impressions: Service Date/Time: Thursday, October 27, 2016 08:30 - CONCLUSION: 1. Patent inflow and outflow bilaterally. 2. Right lower extremity has patency of the trifurcation vessels to the level of the ankle joint. I am able to see the dorsalis pedis artery within its most inferior extent. The posterior tibial artery seen patent to the level just below the medial malleolus. No extravasation to suggest hemorrhage. 3. Left lower extremity shows lack of visualization of the anterior tibial artery beginning just above the ankle joint. This may relate to spasm. I see no extravasation. The posterior tibial artery is patent to level just below the medial malleolus. aCrlo Bal Jr., MD Ankle X-Ray 10/27/16 0000 Signed Impressions: Service Date/Time: Thursday, October 27, 2016 11:13 - CONCLUSION: Severely comminuted fractures predominantly involving the distal tibia Austin Candelario MD Ankle X-Ray 10/27/16 0000 Signed Impressions: Service Date/Time: Thursday, October 27, 2016 07:51 - CONCLUSION: Limited examination. Soft tissue swelling with subcutaneous emphysema along the lateral malleolus area. Distal tibia and fibula are grossly intact. Austin Candelario MD Objective Remarks LLE: Splint intact clean and dry. Intact sensation in all his toes with good capillary refills RLE: +short leg splint. swelling improving. Wound VAC intact able to flex/extend toes bilaterally +sensation LUE: dressings clean and dry. intact. NVI. + sling Assessment & Plan Assessment and Plan Right subtalar fusion and talonavicular dislocation POD 3 with wound VAC Left hindfoot fusion POD 1 3) Left Proximal Humerus Fx s/p ORIF - POD 16 Nonweightbearing bilateral lower extremities and left upper extremity Maintain bilateral splints Maintain wound VAC Plan on taking down wound VAC on Sunday or Sunday, after that possible planning for discharge to rehabilitation [facility] Physical therapy and occupational therapy Incentive spirometry BEN ANTONY PA-C Nov 17, 2016 07:05
[2016-11-17] MEDS ORDERED: BISACODYL EC 5 MG TABEC PO ONE (07:45)
[2016-11-17] MEDS ORDERED: BISACODYL 10 MG SUPP RECTAL ONE (07:45)
[2016-11-17 08:00] VITALS: BP 113/53; PULSE 84; RESP 18; TEMP 97.9; O2SAT 98
[2016-11-17] MEDS ORDERED: ACETAMINOPHEN 325 MG TAB PO PRN (08:00)
[2016-11-17] MEDS: GABAPENTIN 100 MG CAP PO SCH ×3 (08:15→17:58)
[2016-11-17] MEDS: DOCUSATE SODIUM 50 MG/SENNA 8.6 MG TAB PO SCH ×2 (08:15→21:00)
[2016-11-17] MEDS: FAMOTIDINE 20 MG TAB PO SCH ×2 (08:15→21:00)
[2016-11-17] MEDS: GENTAMICIN 80 MG PREMIX 100 ML IV SCH ×3 (08:15→23:22)
[2016-11-17] MEDS: LACTULOSE SYRUP 20 GM/30 ML CUP PO SCH (08:16)
[2016-11-17] MEDS: CALCIUM CARBONATE 500 MG CHEWABLE TAB CHEW SCH ×2 (08:16→21:00)
[2016-11-17] MEDS: SODIUM CHLORIDE 0.9% FLUSH 5 ML FLUSH IVF SCH ×2 (08:27→21:00)
[2016-11-17] MEDS: BACITRACIN TOP OINT 15 GM TUBE TOP SCH ×2 (08:28→21:00)
[2016-11-17 09:00] VITALS: O2SAT 98
[2016-11-17] MEDS: ENOXAPARIN SODIUM 30 MG/0.3 ML SYRINGE SQ SCH ×2 (11:16→23:22)
[2016-11-17 12:00] VITALS: BP 118/61; PULSE 87; RESP 18; TEMP 97.3; O2SAT 95
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
--- NOTE | 2016-11-17 15:36 | EKG ---
Date Performed: 11/16/2016 Time Performed: 19:56:46 PTAGE: 66 years EKG: Sinus rhythm LOW QRS VOLTAGE IN PRECORDIAL LEADS BORDERLINE ECG PREVIOUS TRACING : 10/30/2016 07.11 Compared to prior tracing no significant change DOCTOR: Trish Mead Interpretating Date/Time 11/17/2016 15:35:30
[2016-11-17 16:00] VITALS: BP 124/65; PULSE 100; RESP 18; TEMP 98.4; O2SAT 95
[2016-11-17 20:00] VITALS: BP 119/56; PULSE 96; RESP 18; TEMP 97.7; O2SAT 96
[2016-11-17] MEDS: MAGNESIUM HYDROXIDE SUSP 30 ML CUP PO SCH (21:00)
[2016-11-18] VITALS (7 sets, daily range): BP systolic 117–133; BP diastolic 58–64; PULSE 84–93; RESP 16–17; TEMP 96.2–99; O2SAT 95–99
[2016-11-18] MEDS: ceFAZolin 2 GM PREMIX 50 ML IV SCH ×3 (02:06→17:35)
[2016-11-18] MEDS: KETOROLAC TROMETHAMINE 30 MG/ML (IVP) VIAL IVP SCH (05:19)
[2016-11-18] MEDS: PCA - TOTAL MG MORPHINE DELIVERED PER SHIFT SCH ×2 (05:21→14:00)
[2016-11-18] MEDS: SODIUM CHLORIDE 0.9% FLUSH 5 ML FLUSH IVF SCH ×2 (09:00→21:00)
[2016-11-18] MEDS: BACITRACIN TOP OINT 15 GM TUBE TOP SCH ×2 (09:00→21:12)
[2016-11-18] MEDS: ENOXAPARIN SODIUM 30 MG/0.3 ML SYRINGE SQ SCH ×2 (10:57→23:48)
[2016-11-18] MEDS: GENTAMICIN 80 MG PREMIX 100 ML IV SCH ×3 (10:58→23:48)
[2016-11-18] MEDS: LACTULOSE SYRUP 20 GM/30 ML CUP PO SCH (10:59)
[2016-11-18] MEDS: GABAPENTIN 100 MG CAP PO SCH ×3 (10:59→17:35)
[2016-11-18] MEDS: CALCIUM CARBONATE 500 MG CHEWABLE TAB CHEW SCH ×2 (10:59→21:12)
[2016-11-18] MEDS: FAMOTIDINE 20 MG TAB PO SCH ×2 (10:59→21:12)
[2016-11-18] MEDS: DOCUSATE SODIUM 50 MG/SENNA 8.6 MG TAB PO SCH ×2 (10:59→21:00)
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
[2016-11-18] MEDS ORDERED: MAGNESIUM CITRATE SOLN 300 ML BTL PO ONE (15:30)
[2016-11-18] MEDS: MAGNESIUM HYDROXIDE SUSP 30 ML CUP PO SCH (21:00)
[2016-11-19] VITALS (7 sets, daily range): BP systolic 109–141; BP diastolic 48–63; PULSE 81–98; RESP 16–18; TEMP 97–99.5; O2SAT 95–98
[2016-11-19] MEDS: ceFAZolin 2 GM PREMIX 50 ML IV SCH ×3 (02:17→17:01)
[2016-11-19 06:49] LABS: HEMATOCRIT 23.6 % (39.0-51.0); MEAN CELL VOLUME 86.5 FL (80.0-100.0); MEAN CORPUSCULAR HEMOGLOBIN 29.9 PG (27.0-34.0); MEAN CORPUSCULAR HGB CONC 34.6 % (32.0-36.0); PLATELET COUNT 293 TH/MM3 (150-450); RED BLOOD COUNT 2.72 MIL/MM3 (4.50-5.90); RED CELL DISTRIBUTION WIDTH 15.9 % (11.6-17.2); REVIEW FLAG FINAL
[2016-11-19 07:01] LABS: BICARBONATE 24.9 MEQ/L (21.0-32.0); POTASSIUM 3.7 MEQ/L (3.5-5.1)
[2016-11-19] MEDS: GABAPENTIN 100 MG CAP PO SCH ×3 (08:59→18:41)
[2016-11-19] MEDS: GENTAMICIN 80 MG PREMIX 100 ML IV SCH ×2 (08:59→17:02)
[2016-11-19] MEDS: FAMOTIDINE 20 MG TAB PO SCH ×2 (08:59→22:34)
[2016-11-19] MEDS: CALCIUM CARBONATE 500 MG CHEWABLE TAB CHEW SCH ×2 (08:59→22:34)
[2016-11-19] MEDS: LACTULOSE SYRUP 20 GM/30 ML CUP PO SCH (09:00)
[2016-11-19] MEDS: DOCUSATE SODIUM 50 MG/SENNA 8.6 MG TAB PO SCH ×2 (09:00→22:35)
[2016-11-19] MEDS: SODIUM CHLORIDE 0.9% FLUSH 5 ML FLUSH IVF SCH ×2 (09:00→22:35)
[2016-11-19] MEDS: BACITRACIN TOP OINT 15 GM TUBE TOP SCH ×2 (09:00→22:35)
[2016-11-19] MEDS: ENOXAPARIN SODIUM 30 MG/0.3 ML SYRINGE SQ SCH ×2 (10:50→22:34)
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
[2016-11-19] MEDS: MAGNESIUM HYDROXIDE SUSP 30 ML CUP PO SCH (22:35)
[2016-11-20] MEDS: ceFAZolin 2 GM PREMIX 50 ML IV SCH ×2 (01:57→09:08)
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
[2016-11-20] MEDS ORDERED: SENN1TAB PO (07:08)
[2016-11-20] MEDS ORDERED: MILKSUS PO (07:08)
[2016-11-20] MEDS ORDERED: HYDR-3583 PO (07:08)
[2016-11-20] MEDS ORDERED: LACT10SO PO (07:08)
[2016-11-20] MEDS ORDERED: DIPH25CA PO (07:08)
[2016-11-20] MEDS ORDERED: FAMO20TA2 PO (07:08)
[2016-11-20] MEDS ORDERED: ENOX30P SQ (07:08)
[2016-11-20] MEDS ORDERED: GABA100C4 PO (07:08)
[2016-11-20 08:00] VITALS: BP 115/53; PULSE 76; RESP 19; TEMP 98.6; O2SAT 94
[2016-11-20] MEDS: LACTULOSE SYRUP 20 GM/30 ML CUP PO SCH (09:00)
[2016-11-20] MEDS: DOCUSATE SODIUM 50 MG/SENNA 8.6 MG TAB PO SCH ×2 (09:00→19:40)
[2016-11-20] MEDS: BACITRACIN TOP OINT 15 GM TUBE TOP SCH ×2 (09:00→19:39)
[2016-11-20] MEDS: FAMOTIDINE 20 MG TAB PO SCH ×2 (09:03→19:40)
[2016-11-20] MEDS: CALCIUM CARBONATE 500 MG CHEWABLE TAB CHEW SCH ×2 (09:03→19:40)
[2016-11-20] MEDS: GABAPENTIN 100 MG CAP PO SCH ×3 (09:03→18:28)
[2016-11-20] MEDS: SODIUM CHLORIDE 0.9% FLUSH 5 ML FLUSH IVF SCH ×2 (09:08→19:40)
[2016-11-20 12:00] VITALS: BP 119/54; PULSE 95; RESP 18; TEMP 97.7; O2SAT 99
[2016-11-20] MEDS: ENOXAPARIN SODIUM 30 MG/0.3 ML SYRINGE SQ SCH ×2 (12:42→23:30)
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
[2016-11-20 16:00] VITALS: BP 114/67; PULSE 102; RESP 18; TEMP 98.5; O2SAT 96
[2016-11-20] MEDS: MAGNESIUM HYDROXIDE SUSP 30 ML CUP PO SCH (19:38)
[2016-11-20 20:45] VITALS: BP 116/58; PULSE 104; RESP 16; TEMP 98.1; O2SAT 95
[2016-11-21 00:35] VITALS: BP 122/64; PULSE 92; RESP 16; TEMP 96.1; O2SAT 96
[2016-11-21 08:00] VITALS: BP 113/59; PULSE 83; RESP 18; TEMP 97.3; O2SAT 97
--- NOTE | 2016-11-21 08:27 | PD.ORT.PN ---
Subjective Subjective Remarks Pain control, no new complaints Objective Vitals Vital Signs Date Time Temp Pulse Resp B/P Pulse Ox O2 Delivery O2 Flow Rate FiO2 11/21/16 00:35 96.1 92 16 122/64 96 11/20/16 20:45 98.1 104 16 116/58 95 11/20/16 16:00 98.5 102 18 114/67 96 11/20/16 12:00 97.7 95 18 119/54 99 I/O 11/20/16 11/20/16 11/20/16 11/21/16 11/21/16 11/21/16 07:00 15:00 23:00 07:00 15:00 23:00 Intake Total 480 ml 1072 ml 480 ml Output Total 675 ml 1750 ml 975 ml Balance -195 ml -678 ml -495 ml Intake Oral 480 ml 1072 ml 480 ml Output Urine Total 675 ml 1750 ml 975 ml Drainage Total 0 ml 0 ml # Bowel Movements 0 1 1 Result Diagram: 11/19/16 0551 11/19/16 0551 Imaging Last 24 hours Impressions Thoracic Spine CT 10/27/16812 Signed Impressions: Service Date/Time: Thursday, October 27, 2016 08:22 - CONCLUSION: Negative CT scan of the thoracic spine for acute traumatic injury. Gennaro Mueller MD FACR Pelvis X-Ray 10/27/16812 Signed Impressions: Service Date/Time: Thursday, October 27, 2016 07:51 - CONCLUSION: No definite bony fracture or joint dislocation. Austin Candelario MD Lumbar Spine CT 10/27/16812 Signed Impressions: Service Date/Time: Thursday, October 27, 2016 08:21 - CONCLUSION: 1. Mild nondisplaced facture involving the anterior superior endplate of L3. 2. Primary bony degenerative changes of the lumbar spine. 3. Mild diffuse broad-based bulging L4-5 4. Bilateral facet arthritis. Austin Candelario MD Head CT 10/27/16812 Signed Impressions: Service Date/Time: Thursday, October 27, 2016 08:16 - CONCLUSION: No acute intracranial hemorrhage. Austin Candelario MD Chest X-Ray 10/27/16812 Signed Impressions: Service Date/Time: Thursday, October 27, 2016 07:51 - CONCLUSION: No definite acute pulmonary infiltrates. CT thorax to follow. Austin Candelario MD Chest CT 10/27/16812 Signed Impressions: Service Date/Time: Thursday, October 27, 2016 08:21 - CONCLUSION: 1. Acute left proximal humeral fracture. 2. No acute intrathoracic abnormality. 3. 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 Carlo Bal Jr., MD Cervical Spine CT 10/27/16812 Signed Impressions: Service Date/Time: Thursday, October 27, 2016 08:18 - CONCLUSION: 1. No fracture or dislocation. 2. Degenerative changes at C6-C7. Carlo Bal Jr., MD Abdomen/Pelvis CT 10/27/16812 Signed Impressions: Service Date/Time: Thursday, October 27, 2016 08:21 - CONCLUSION: 1. No acute abnormality. 2. Small peripelvic cysts involving the left kidney. Carlo Bal Jr., MD Tibia/Fibula X-Ray 10/27/16 Signed Impressions: Service Date/Time: Thursday, October 27, 2016 11:38 - CONCLUSION: I see no unexpected radiopaque foreign bodies. Gennaro Mueller MD FACR Tibia/Fibula X-Ray 10/27/16 Signed Impressions: Service Date/Time: Thursday, October 27, 2016 07:51 - CONCLUSION: 1. Severely comminuted fractures involving the distal tibia 2. Fractures involving the proximal and distal fibula Austin Candelario MD Radius/Ulna X-Ray 10/27/16 Signed Impressions: Service Date/Time: Thursday, October 27, 2016 11:38 - CONCLUSION: There is no radiopaque retained surgical instruments. Gennaro Mueller MD FACR Maxillofacial CT 10/27/16 Signed Impressions: Service Date/Time: Thursday, October 27, 2016 08:16 - CONCLUSION: 1. Acute fractures involving the nasion and nasal septum. 2. Periorbital soft tissue hematoma on the left. 3. Chronic maxillary sinus disease on the right. Carlo Bal Jr., MD Lower Extremity CT 10/27/16 Signed Impressions: Service Date/Time: Thursday, October 27, 2016 08:30 - CONCLUSION: 1. Multiple fractures involving the right foot. 2. Joint dislocation between the tarsal navicular bone and the talus. The tarsonavicular bone is dislocated anteriorly. Austin Candelario MD Lower Extremity CT 10/27/16 Signed Impressions: Service Date/Time: Thursday, October 27, 2016 08:30 - CONCLUSION: 1. Distal tibia and fibula are grossly intact. Good alignment at the mortise joint. 2. Multiple severe fractures of the right foot which are described on the CT scan of the foot. Austin Candelario MD Lower Extremity CT 10/27/16 Signed Impressions: Service Date/Time: Thursday, October 27, 2016 08:30 - CONCLUSION: Severely comminuted fracture the distal tibia. Multiple fractures involving the left foot as above Austin Candelario MD Lower Extremity CT 10/27/16 Signed Impressions: Service Date/Time: Thursday, October 27, 2016 08:35 - CONCLUSION: Complex severely comminuted open fracture injuries of the left ankle and hindfoot as described. Jacobo Bragg MD Foot X-Ray 10/27/16 Signed Impressions: Service Date/Time: Thursday, October 27, 2016 11:13 - CONCLUSION: Status post pinning as above. Austin Candelario MD Foot X-Ray 10/27/16 Signed Impressions: Service Date/Time: Thursday, October 27, 2016 07:51 - CONCLUSION: Limited study with no definite bony fractures on this single view. Recommend complete study when patient is stable. Austin Candelario MD Aorta w/Runoff CTA 10/27/16 Signed Impressions: Service Date/Time: Thursday, October 27, 2016 08:30 - CONCLUSION: 1. Patent inflow and outflow bilaterally. 2. Right lower extremity has patency of the trifurcation vessels to the level of the ankle joint. I am able to see the dorsalis pedis artery within its most inferior extent. The posterior tibial artery seen patent to the level just below the medial malleolus. No extravasation to suggest hemorrhage. 3. Left lower extremity shows lack of visualization of the anterior tibial artery beginning just above the ankle joint. This may relate to spasm. I see no extravasation. The posterior tibial artery is patent to level just below the medial malleolus. Carlo Bal Jr., MD Ankle X-Ray 10/27/16 Signed Impressions: Service Date/Time: Thursday, October 27, 2016 11:13 - CONCLUSION: Severely comminuted fractures predominantly involving the distal tibia Austin Candelario MD Ankle X-Ray 10/27/16 0000 Signed Impressions: Service Date/Time: Thursday, October 27, 2016 07:51 - CONCLUSION: Limited examination. Soft tissue swelling with subcutaneous emphysema along the lateral malleolus area. Distal tibia and fibula are grossly intact. Austin Candelario MD Objective Remarks LLE: Splint intact clean and dry. Intact sensation in all his toes with good capillary refills RLE: Taken down incisions healing well with no erythema or drainage. 2 percutaneous pins noted over dorsum of foot. Wound VAC removed. New dressings applied with Xeroform 4 x 4's and Sof-Rol. New short-leg splint with posterior and stirrup applied able to flex/extend toes bilaterally +sensation LUE: dressings clean and dry. intact. NVI. + sling Assessment & Plan Assessment and Plan 1) Right subtalar fusion and talonavicular dislocation POD 7 with wound VAC 2) Left hindfoot fusion - POD 5 3) Left Proximal Humerus Fx s/p ORIF - POD 21 Nonweightbearing bilateral lower extremities and left upper extremity Maintain bilateral splints DC wound VAC Orthopedically cleared for discharge to rehabilitation [facility] Physical therapy and occupational therapy Incentive spirometry Follow-up with Dr. Dutton or [place] in 10 days Rhett Mckinnon Jr. Nov 21, 2016 08:27
[2016-11-21] MEDS: FAMOTIDINE 20 MG TAB PO SCH (08:57)
[2016-11-21] MEDS: CALCIUM CARBONATE 500 MG CHEWABLE TAB CHEW SCH (08:57)
[2016-11-21] MEDS: GABAPENTIN 100 MG CAP PO SCH (08:58)
[2016-11-21] MEDS: LACTULOSE SYRUP 20 GM/30 ML CUP PO SCH (08:59)
[2016-11-21] MEDS: BACITRACIN TOP OINT 15 GM TUBE TOP SCH (09:00)
[2016-11-21] MEDS: DOCUSATE SODIUM 50 MG/SENNA 8.6 MG TAB PO SCH (09:00)
[2016-11-21] MEDS: SODIUM CHLORIDE 0.9% FLUSH 5 ML FLUSH IVF SCH (09:04)
[2016-11-21] MEDS: ENOXAPARIN SODIUM 30 MG/0.3 ML SYRINGE SQ SCH (10:34)
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
[2016-11-30] MEDS ORDERED: COMMODE PAIL WI1 MIS (15:26)
[2016-11-30] MEDS ORDERED: [UNRECOGNIZED DRUG - OTHER] (15:26)
[2016-11-30] MEDS ORDERED: [UNRECOGNIZED DRUG - OTHER] (15:26)
[2016-11-30] MEDS ORDERED: HOSP BED1 (15:26)
[2016-11-30] MEDS ORDERED: [UNRECOGNIZED DRUG - OTHER] (15:26)
[2016-11-30] MEDS ORDERED: Transfer Board (15:26)
[2016-12-06] MEDS ORDERED: WHEEMIS3 (14:43)
[2016-12-07] MEDS ORDERED: SENN1TAB PO (09:40)
[2016-12-07] MEDS ORDERED: XARE10TA PO (09:40)
[2016-12-07] MEDS ORDERED: FAMO20TA2 PO (09:40)
[2016-12-07] MEDS ORDERED: HYDR-3583 PO (09:40)
[2016-12-07] MEDS ORDERED: ACET325T PO (09:40)
[2016-12-07] MEDS ORDERED: MILKSUS PO (09:40)
[2016-12-07] MEDS ORDERED: NEUR400C PO (09:40)
[2016-12-07] MEDS ORDERED: DRIS50002 PO (09:40)
[2017-01-10] MEDS ORDERED: NEUR400C PO (15:22)
== END 2016-11-21 11:24 | DRG 492 ==
LOC: NEPI 07:55 → NEDA 09:11 → EDBD 09:11 → N03A 12:40 → N06B 10-29 10:42
PROVIDERS: ADMIT Surgery; ATTEND Surgery
PROC: 0QSM04Z Reposition Left Tarsal with Internal Fixation Device, Open Approach (ICD-10-PCS; 2016-10-27)
PROC: 0QSL04Z Reposition Right Tarsal with Internal Fixation Device, Open Approach (ICD-10-PCS; 2016-10-27)
PROC: 0YQN0ZZ Repair Left Foot, Open Approach (ICD-10-PCS; 2016-10-27)
PROC: 0YQM0ZZ Repair Right Foot, Open Approach (ICD-10-PCS; 2016-10-27)
PROC: 0KNT0ZZ Release Left Lower Leg Muscle, Open Approach (ICD-10-PCS; 2016-10-27)
PROC: 0Y3J0ZZ Control Bleeding in Left Lower Leg, Open Approach (ICD-10-PCS; 2016-10-27)
PROC: 0XQ Anatomical Regions, Upper Extremities, Repair (ICD-10-PCS; 2016-10-27)
PROC: 0QSL04Z Reposition Right Tarsal with Internal Fixation Device, Open Approach (ICD-10-PCS; 2016-10-27)
PROC: 30233N1 Transfusion of Nonautologous Red Blood Cells into Peripheral Vein, Percutaneous Approach (ICD-10-PCS; 2016-10-27)
PROC: 5A1935Z Respiratory Ventilation, Less than 24 Consecutive Hours (ICD-10-PCS; 2016-10-27)
PROC: 0BH17EZ Insertion of Endotracheal Airway into Trachea, Via Natural or Artificial Opening (ICD-10-PCS; 2016-10-27)
PROC: 0QSHXZZ Reposition Left Tibia, External Approach (ICD-10-PCS; 2016-10-27)
PROC: 0QSH05Z Reposition Left Tibia with External Fixation Device, Open Approach (ICD-10-PCS; principal; 2016-10-27 08:50)
PROC: 0QBL0ZZ Excision of Right Tarsal, Open Approach (ICD-10-PCS; 2016-10-31)
PROC: 0JDP0ZZ Extraction of Left Lower Leg Subcutaneous Tissue and Fascia, Open Approach (ICD-10-PCS; 2016-10-31)
PROC: 0PSD04Z Reposition Left Humeral Head with Internal Fixation Device, Open Approach (ICD-10-PCS; 2016-10-31 10:52)
PROC: 0JDP0ZZ Extraction of Left Lower Leg Subcutaneous Tissue and Fascia, Open Approach (ICD-10-PCS; 2016-11-03)
PROC: 0QPL04Z Removal of Internal Fixation Device from Right Tarsal, Open Approach (ICD-10-PCS; 2016-11-07)
PROC: 0QSL04Z Reposition Right Tarsal with Internal Fixation Device, Open Approach (ICD-10-PCS; 2016-11-07)
PROC: 0QB20ZZ Excision of Right Pelvic Bone, Open Approach (ICD-10-PCS; 2016-11-14)
PROC: 0SGH07Z Fusion of Right Tarsal Joint with Autologous Tissue Substitute, Open Approach (ICD-10-PCS; 2016-11-14)
PROC: 0QSL04Z Reposition Right Tarsal with Internal Fixation Device, Open Approach (ICD-10-PCS; 2016-11-14)
DX: S82.872B Displaced pilon fracture of left tibia, initial encounter for open fracture type I or II (principal); R57.1 Hypovolemic shock; J96.01 Acute respiratory failure with hypoxia; J96.02 Acute respiratory failure with hypercapnia; N17.9 Acute kidney failure, unspecified; D68.8 Other specified coagulation defects; D62 Acute posthemorrhagic anemia; E44.1 Mild protein-calorie malnutrition; S82.832B Other fracture of upper and lower end of left fibula, initial encounter for open fracture type I or II; T79.A22A Traumatic compartment syndrome of left lower extremity, initial encounter; S92.002B Unspecified fracture of left calcaneus, initial encounter for open fracture; S92.001B Unspecified fracture of right calcaneus, initial encounter for open fracture; S42.242A 4-part fracture of surgical neck of left humerus, initial encounter for closed fracture; S92.251A Displaced fracture of navicular [scaphoid] of right foot, initial encounter for closed fracture; S81.012A Laceration without foreign body, left knee, initial encounter; S91.311A Laceration without foreign body, right foot, initial encounter; S93.04XA Dislocation of right ankle joint, initial encounter; S51.812A Laceration without foreign body of left forearm, initial encounter; R73.9 Hyperglycemia, unspecified; S01.112A Laceration without foreign body of left eyelid and periocular area, initial encounter; V95.2 Other private fixed-wing aircraft accident injuring occupant; Y93.89 Activity, other specified; Z68.30 Body mass index [BMI] 30.0-30.9, adult; Y92.813 Airplane as the place of occurrence of the external cause; Z99.3 Dependence on wheelchair
CPT/HCPCS: 27762; 36430; 70450; 70486; 71010; 71260; 72125; 72128; 72131; 72170; 73030; 73600; 73620; 73650; 73700; 74177; 75635; 76000; 76937; 80048; 80053; 81001; 82435; 82565; 82805; 82947; 82948; 83735; 84132; 84155; 84295; 84520; 85007; 85014; 85018; 85025; 85027; 85384; 85610; 85730; 86850; 86900; 86901; 86920; 86927; 86965; 87040; 87086; 87641; 90715; 93005; 94002; 94003; 94150; 94640; 94664; 96374; 96375; 99291; C1713; C9113; G0390; J0131; J0690; J1100; J1170; J1580; J1650; J1885; J1940; J2175; J2250; J2270; J2370; J2405; J2710; J3010; J3370; J7030; J7050; J7120; J8501; P9016; P9017; P9035; Q9967

== ENCOUNTER 2017-03-27 05:45 | Inpatient (IN) | payer MEDICARE, OTHER ==
[~2017-03-27] VITALS: Ht 182.9 cm; Wt 90.5 kg
[~2017-03-27 05:45] MED LIST: CALC500C2 CHEW; CIAL2.5T PO; NEUR400C PO; WALKER WHEELS/F1 MIS; WHEEMIS3
[2017-03-27] MEDS ORDERED: BUPIVACAINE/EPINEPHRINE 0.5% 50 ML VIAL ONE (06:10)
[2017-03-27] MEDS ORDERED: GENTAMICIN SULFATE 80 MG/2 ML VIAL ONE (06:11)
[2017-03-27] MEDS ORDERED: METOPROLOL TARTRATE 25 MG TAB PO PRN (06:15)
[2017-03-27] MEDS ORDERED: ceFAZolin 2 GM PREMIX 50 ML IV SCH (06:15)
[2017-03-27] MEDS ORDERED: VANCOMYCIN 1000 MG/NS 250 ML (for <70 kg) IV SCH ×2 (06:15)
[2017-03-27] MEDS ORDERED: CHLORHEXIDINE GLUCONATE 2 % 1 PACK (2 CLOTHS) TOPICAL PRN (06:15)
[2017-03-27] MEDS ORDERED: SODIUM CHLORID 0.9% 500 ML IV PRN (06:15)
[2017-03-27] MEDS ORDERED: INSULIN HUMAN REGULAR 1,000 UNITS/10 ML VIAL SQ PRN (06:15)
[2017-03-27] MEDS ORDERED: CHLORHEXIDINE GLUCONATE 4% SOLN 120 ML BTL TOPICAL SCH (06:15)
[2017-03-27] MEDS ORDERED: LACTATED RINGER'S 1000 ML IV PRN (06:15)
[2017-03-27] MEDS ORDERED: POVIDONE IODINE 5% (ANTISEPSIS KIT) 4 APPLICATIONS EACH NARE PRN (06:15)
[2017-03-27] MEDS ORDERED: ASPI325T PO (06:27)
[2017-03-27 06:29] VITALS: BP 111/62; PULSE 63; RESP 18; TEMP 98.1; O2SAT 99
[2017-03-27] MEDS ORDERED: MORPHINE SULFATE 4 MG/ML INJ IV PUSH PRN (09:00)
[2017-03-27] MEDS ORDERED: Post-op Orders (for Pharmacy) MISC XX ONE (09:00)
[2017-03-27] MEDS ORDERED: ONDANSETRON HCL 4 MG/2 ML VIAL IVP PRN (09:00)
--- NOTE | 2017-03-27 09:05 | PD.OP ---
cc: Sedrick Dutton MD Operative Report Date of Surgery: Mar 27, 2017 Preoperative Diagnosis: Left distal tibia nonunion, delayed healing left hindfoot arthrodesis Postoperative Diagnosis: Same Procedure: Open treatment of left tibia nonunion with bone grafting Surgeon: Sedrick Dutton Motor Carrier Inspector(s): CALI Carreon PA-C The surgical procedure was assisted by my physician executive staff assistant. My P.A. presence was necessary throughout this case for the manipulation and positioning of the surgical extremity. My P.A. was assisting me throughout the duration of this procedure. The skill set of a physician executive staff assistant was medically necessary to complete this procedure. During the surgical case the surgical technology instructor was working at the back table and the physician executive staff assistant was directly assisting me. Operation and Findings: Pj is well-known to me from multiple surgeries on bilateral lower extremity. He has developed a nonunion of the left distal tibia fractures and hindfoot arthrodesis. Informed consent was obtained preoperatively and operative site was marked. He was brought to operating. He was given IV sedation and general anesthesia. He received IV antibiotics. Timeout procedure was performed. Left leg and hip were prepped up to the iliac crest with alcohol followed by Hibiclens. Procedure began with debridement of the nonunion site. A 3 inch incision was made over the anterior lateral ankle. A 2 inch incision was made over the anterior medial ankle. Subcutaneous tissue dissected with Bovie. The medial and lateral aspects of the ankle joint were exposed. The distal tibia was also exposed. At this point attention was turned to debridement of the fracture nonunion as well as the ankle joint. Curettes and rongeurs were used to debride fibrous tissue from the ankle joint and fracture site. A TPS bur was used to debride the cartilage from the joint surface. All visible articular surface was debrided with a bur. A portion of the tibia fracture nonunion was was also debrided with a bur. Fluoroscopy was used to aid in localization of the nonunion. Wound was now thoroughly irrigated. The hindfoot arthrodesis was stabilized with intramedullary nail which is intact. Next was turned iliac crest bone grafting. A 3 inch incision was made along the iliac crest. Subcutaneous tissue dissected with Bovie. Fascia was elevated sharply off the iliac crest. Osteotomes were used to obtain bone graft. A portion of tricortical graft was taken. Additional cancellus bone graft was obtained using curettes. Bone graft site was now thoroughly irrigated. Fascia was closed with #1 Vicryl, subcutaneous tissues closed with 3 -0 Vicryl, and skin was closed with tasha. This incision area was infiltrated with half percent Marcaine with epinephrine. Attention was now returned back to the nonunion. The tricortical graft was now placed into the defect along the distal tibia nonunion site. The cancellus bone graft was now packed into the ankle joint arthrodesis sites. Additional 7.5 cc of bilateral severe putty was packed into the nonunion and ankle joint. Incisions were closed with #1 Vicryl, 3-0 Vicryl, and 3-0 nylon. Sterile dressings were applied. Patient was placed into a well molded well-padded splint. He was awakened and transferred to recovery room in stable condition. Sedrick Dutton MD Mar 27, 2017 09:05
[2017-03-27] MEDS ORDERED: fentaNYL CITRATE 250 MCG/5 ML AMP ONE (09:35)
[2017-03-27] MEDS ORDERED: MIDAZOLAM HCL 2 MG/2 ML VIAL ONE (09:35)
[2017-03-27] MEDS ORDERED: DO NOT ADM ANY ANTICOAGULANT DRUGS PRN (09:45)
[2017-03-27] MEDS: GABAPENTIN 400 MG CAP PO SCH ×3 (10:00→15:48)
[2017-03-27] MEDS ORDERED: ERGOCALCIFEROL (VIT D2) 50,000 UNIT CAP PO ONE (10:00)
[2017-03-27] MEDS ORDERED: ONDANSETRON HCL 4 MG/2 ML VIAL IV PUSH ONE (11:22)
[2017-03-27] MEDS ORDERED: ePHEDrine/NS 25 MG/5 ML SYR IV ONE (11:22)
[2017-03-27] MEDS ORDERED: PROPOFOL 200 MG/20 ML AMP IV ONE (11:22)
[2017-03-27] MEDS: ASPIRIN 325 MG TAB PO SCH (11:30)
[2017-03-27 12:27] VITALS: BP_SYST 105; BP_SYST 124; BP_DIAS 58; BP_DIAS 68; PULSE 57; PULSE 60; RESP 18; TEMP 96.2; TEMP 96.5; O2SAT 98; O2SAT 99
--- NOTE | 2017-03-27 14:45 | RADRPT ---
EXAM DATE/TIME: 03/27/2017 08:49 [facility] COMPARISON: ANKLE LEFT LIMITED (AP&LAT), November 16, 2016, 17:16. INDICATIONS : ORIF left ankle revision. MEDICAL HISTORY : None. SURGICAL HISTORY : Left leg surgery. ENCOUNTER: Subsequent ACUITY: 4 - 6 months PAIN SCORE: Non-responsive. LOCATION: Left ankle. FINDINGS: Hardware is noted within the left ankle and is adequate in position status post ORIF revision. Addit ional cement appears to have been placed in a region of the ankle. CONCLUSION: Status post ORIF revision with hardware and cement appearing to be adequate in position. Yariel Duval MD on March 27, 2017 at 14:19 Board Certified Radiologist. This report was verified electronically.
[2017-03-27] MEDS: ceFAZolin 2 GM PREMIX 50 ML IV SCH ×2 (15:48→23:12)
[2017-03-27 16:00] VITALS: BP 99/51; PULSE 77; RESP 18; TEMP 96.2; O2SAT 95
[2017-03-27 20:45] VITALS: BP 105/59; PULSE 86; RESP 17; TEMP 97.2; O2SAT 95
[2017-03-27] MEDS: ACETAMINOPHEN/HYDROcodone 325 MG/10 MG TAB PO PRN (23:13)
[2017-03-27 23:40] VITALS: BP 100/52; PULSE 89; RESP 17; TEMP 98.1; O2SAT 95
[2017-03-28 04:00] VITALS: BP 101/52; PULSE 78; RESP 16; TEMP 97.2; O2SAT 93
--- NOTE | 2017-03-28 06:43 | PD.ORT.PN ---
Subjective Subjective Remarks POD 1 s/p I&D with ICBG left ankle doing well. states was out of bed yesterday. reports left hip and left ankle pain. nurse states that left hip drained quite a bit last night and had to reinforce the dressings Objective Vitals Vital Signs Date Time Temp Pulse Resp B/P Pulse Ox O2 Delivery O2 Flow Rate FiO2 03/28/17 04:00 97.2 78 16 101/52 93 03/27/17 23:40 98.1 89 17 100/52 95 03/27/17 20:45 97.2 86 17 105/59 95 03/27/17 16:00 96.2 77 18 99/51 95 03/27/17 12:27 96.5 60 18 105/58 98 03/27/17 12:00 97.3 61 14 115/63 97 Room Air 03/27/17 11:00 52 10 113/59 99 Room Air 03/27/17 10:05 57 12 111/59 97 Nasal Cannula 2 03/27/17 09:45 62 11 111/57 94 Nasal Cannula 2 03/27/17 09:30 97.4 69 11 113/62 94 Nasal Cannula 2 I/O 03/27/17 03/27/17 03/27/17 03/28/17 03/28/17 03/28/17 06:59 14:59 22:59 06:59 14:59 22:59 Intake Total 975 ml 480 ml 457 ml Output Total 75 ml 275 ml Balance 900 ml 205 ml 457 ml Intake Oral 75 ml 480 ml IV Total 100 ml 457 ml Other 800 ml Output Urine Total 0 ml 275 ml Estimated Blood Loss 75 ml # Voids 0 # Bowel Movements 0 Objective Remarks LLE: +short leg splint. mild bloody drainage of splint posteriorly. nvi with good motion of toes. dressings reinforced on left hip Assessment & Plan Assessment and Plan 1) Left Ankle nonunion s/p ICBG - POD 1 -NWB -change distal hemal wrap of splint today to fresh hemal wrap -dressing change of left hip today -DC home today with [facility] -f/u with Kenyatta or [facility]LA in 2 weeks Bereket Luciano Mar 28, 2017 06:43
[2017-03-28] MEDS ORDERED: HYDR-3583 PO (06:45)
--- NOTE | 2017-03-28 06:46 | HHI.FF ---
Face to Face Verification Diagnosis: (1) Open fracture of left tibia and fibula Physical Therapy Gait training Right LE Weight Bearing: WB as tolerated (while wearing boot) Left LE Weight Bearing: Non WB Nursing Dressing Changes: Daily dressing change, Xeroform, Coverderm/Primapore (left hip. maintain splint to left ankle at all times) I have seen patient Pj Baker on 03/28/17. My clinical findings support the need for the requested home health care services because: Ltd mobility - disease progression I certify that my clinical findings support that this patient is homebound because: Post-op weakness Bereket Luciano Mar 28, 2017 06:46
[2017-03-28] MEDS: ACETAMINOPHEN/HYDROcodone 325 MG/10 MG TAB PO PRN ×3 (06:49→13:59)
--- NOTE | 2017-03-28 07:07 | HHI.DS ---
Discharge Summary Admission Date Mar 27, 2017 at 09:36 Discharge Date: Mar 28, 2017 Admitting Diagnosis Left ankle nonunion Diagnosis: (1) Open fracture of left tibia and fibula Diagnosis: Principal Procedures Irrigation debridement with iliac crest bone grafting of left ankle PE at Discharge LLE: +short leg splint. mild bloody drainage of splint posteriorly. nvi with good motion of toes. dressings reinforced on left hip Hospital Course Patient admitted from surgery from outpatient basis for developing nonunion of left ankle. He was taken to the operating room on March 27, 2017. Tolerated procedure well was admitted to [address] [place] [address]. Was out of bed on postoperative day 0 and ambulating with a walker. Reported significant drainage out of the iliac crest bone graft harvest site was reinforced dressings. Also reported drainage from splint of his ankle. Overall, his pain is relatively well controlled. States that he has had significant pain since the surgery but feels comfortable. He states he feels as if he is ready to [facility] home. Bandage changes will be done to the left hip and he will have a fresh Isaak bandage placed on his left ankle splint. He'll be discharged home with home health care. He'll remain nonweightbearing on the left ankle. He'll be weightbearing as tolerated while wearing a boot on right ankle. Home health care will be arranged. He'll follow up with Dr. Marija RAMIRES in 2 weeks Pt Condition on Discharge: Good Discharge Disposition: Disch w/ Home Health Serv Discharge Instructions Diet Instructions: As Tolerated, No Restrictions Activities You Can Perform: Non Weight Bearing Follow up Referrals: Orthopedics - 04/11/17 @ [facility] with Sedrick You MD New Medications: Hydrocodone-Acetaminophen (Hydrocodone-Acetaminophen) 10-325 mg Tab 1 TAB PO Q4H PRN PAIN #60 Ref 0 TAB Continued Medications: Aspirin (Aspirin) 325 Mg Tab 325 MG PO DAILY #30 Ref 0 TAB Calcium Carbonate-Cholecalciferol (Calcium) 1,250-100 Mg-Unit Chew 1 TAB CHEW DAILY TAB Gabapentin (Neurontin) 400 Mg Cap 400 MG PO TID #180 CAP Tadalafil (Cialis) 2.5 Mg Tab 2.5 MG PO DAILY Do not exceed 1 dose/day. Ref 0 TAB Bereket Luciano Mar 28, 2017 07:07
[2017-03-28 08:00] VITALS: BP 113/50; PULSE 77; RESP 18; TEMP 97.9; O2SAT 94
[2017-03-28] MEDS: GABAPENTIN 400 MG CAP PO SCH ×2 (08:43→12:34)
[2017-03-28] MEDS: ASPIRIN 325 MG TAB PO SCH (08:44)
[2017-03-28] MEDS ORDERED: CALCIUM CARBONATE 500 MG CHEWABLE TAB PO SCH (09:00)
[2017-03-28 12:00] VITALS: BP 122/69; PULSE 88; RESP 18; TEMP 96.6; O2SAT 95
== END 2017-03-28 15:40 | disposition home health service (06) | DRG 493 ==
LOC: HSDC 05:45 → HSDI 08:56 → OBSVTOIN 09:36 → N06A 12:30
PROVIDERS: ADMIT Orthopaedic Surgery Orthopaedic Trauma; ATTEND Orthopaedic Surgery Orthopaedic Trauma
PROC: 0QBH0ZZ Excision of Left Tibia, Open Approach (ICD-10-PCS; 2017-03-27)
PROC: 0QB30ZZ Excision of Left Pelvic Bone, Open Approach (ICD-10-PCS; 2017-03-27)
PROC: 0QRH07Z Replacement of Left Tibia with Autologous Tissue Substitute, Open Approach (ICD-10-PCS; 2017-03-27)
PROC: 0SBG0ZZ Excision of Left Ankle Joint, Open Approach (ICD-10-PCS; principal; 2017-03-27 07:24)
DX: M96.0 Pseudarthrosis after fusion or arthrodesis (principal); S82.302 Unspecified fracture of lower end of left tibia
CPT/HCPCS: 73600; 76000; C1713; J0690; J1580; J2250; J2405; J3010; J3370; J7050; J7120